=== PATIENT | male | born 1965 | race Caucasian/White ===

== ENCOUNTER 2022-10-02 10:35 | Emergency (ER) | payer MEDICARE, MEDICAID, SELFPAY ==
--- NOTE | ~2022-10-02 | XR_ITS ---
EXAMINATION: XR HAND, LEFT CLINICAL INFORMATION: Left second digit pain status post blunt trauma. COMPARISON: None available. TECHNIQUE: PA, lateral, and oblique views of the left hand. An indicator arrow points to the distal left second digit. FINDINGS: There is an acute, comminuted, mildly displaced fracture of the distal tip of the distal phalanx of the second digit with adjacent soft tissue swelling and distortion. No radiopaque foreign body. The remainder the digits are intact. XR/XR hand LT min 3V IMPRESSION: Acute, comminuted, mildly displaced fracture of the distal tip of the distal phalanx of the second digit.
[2022-10-02 11:05] VITALS: BP 149/86; PULSE 65; RESP 16; TEMP 36.9; O2SAT 100; BMI 27.4
--- NOTE | 2022-10-02 11:09 | ED.EXTPRO ---
HPI - Extremity Problem General Chief complaint: Extremity Injury, Upper Stated complaint: left index finger injury Time Seen by Provider: 10/02/22 11:23 Source: patient and RN notes reviewed Mode of arrival: ambulatory Limitations: no limitations History of Present Illness HPI Narrative: This is a 57-year-old male presenting to the emergency department for evaluation of left 2nd finger pain. He states that he was hammering a piece of wood at his house earlier today and accidentally hit his left 2nd finger with a hammer. Patient is unsure when his last tetanus was. Denies taking any medications at home treated current symptoms. No history of problems with his left finger in the past. No other complaints or concerns at this time. Related Data Previous Rx's Medication Instructions Recorded acetaminophen 325 mg tablet 650 mg PO Q6H PRN pain #30 tabs 10/02/22 (Tylenol) cephalexin 500 mg capsule 500 mg PO Q6H 7 days #28 caps 10/02/22 doxycycline hyclate 100 mg capsule 100 mg PO BID 7 days #14 caps 10/02/22 ibuprofen 600 mg tablet 600 mg PO Q6H PRN pain #30 tabs 10/02/22 oxycodone 5 mg capsule 5 mg PO Q6H PRN pain #7 caps 10/02/22 Allergies Allergy/AdvReac Type Severity Reaction Status Date / Time No Known Allergies Allergy Unverified 11/14/19 15:49 [No Known Allergies*] Review of Systems Review of Systems: Yes all other systems are reviewed and are negative PMFSH Past Medical History Attestation statement: The following information was validated with the patient. Physical Exam Vital Signs: Vital Signs: Last Vital Signs Temp 98.5 F 10/02/22 11:05 Pulse 60 10/02/22 12:36 Resp 18 10/02/22 12:36 BP 130/85 10/02/22 12:36 Pulse Ox 99 10/02/22 12:36 O2 Del Method Room Air 10/02/22 12:36 BMI result Body Mass Index 27.4 Const: Other: General: Awake, alert, and oriented X3. No acute distress. HEENT: Normal inspection CVS: Normal heart rate and rhythm. Pulses normal. Respiratory: No respiratory distress Skin: Warm, dry, no rashes noted to exposed skin. Normal skin color. Normal skin turgor. Extremities: Left second Distal phalanx with subungal hematoma noted, irregular 3mm laceration noted to the tip of the digit with active bleeding. Distal sensation intact. Able to flex and extend at the MCP, PIP and DIP without difficulty. Neuro: Oriented X 3. No motor deficit. No sensory deficit. Course Course Course Narrative: RME performed by Kemi Wells PA-C. Patient is a 57 year old assigned male at presenting to the emergency department with left index finger pain. Patient states that he hit it with a hammer and it is bleeding. Imaging ordered. Patient placed back in the waiting room pending room availability and results. Medications Administered Discontinued Medications Generic Name Dose Route Start Last Admin Trade Name Freq PRN Reason Stop Dose Admin Bacitracin 1 appl 10/02/22 15:12 10/02/22 15:31 Bacitracin Oint 0.9 Gm Packet TOPICAL 10/02/22 15:13 1 appl ONCE ONE Administration Protocol Diphtheria/Tetanus/Acell Pertussis 0.5 ml 10/02/22 11:10 10/02/22 11:29 Diphth,Pertus(Acell),Tet Adult 0.5 Ml Syringe IM 10/02/22 11:11 0.5 ml .ONCE ONE Administration Lidocaine HCl 5 ml 10/02/22 14:07 10/02/22 14:31 Lidocaine Hcl 1 % Mpf 5 Ml Vial INFILTRATI 10/02/22 14:08 5 ml ONCE ONE Administration Medical Decision Making Medical Decision Making MDM Narrative: 57 y/o M presenting to the Er with complaints of left second digit pain after striking it with a hammer. On arrival, mildly hypertensive at 149/86, likely due to pain. Xray was obtained revealing Acute, comminuted, mildly displaced fracture of the distal tip of the distal phalanx of the second digit. Case discussed with orthopedic PA, Afua Guzman, who recommends cleansing and closing wound and will f/u in office next. Laceration with suture repair preformed - see procedure note for further details. Pt tolerated procedure well without complications. Wound dressed with bacitracin. Finger placed in splint. Pt discharged on ABX, Ibuprofen/tylenol, and also givenn oxycodone for severe pain only. Advised that he should only take oxycodone for severe pain only and that this medication cannot be refilled from the ER. Pt understands and agrees with plan. Given wound care instructions. Given return pre-cautions. Pt stable for d/c. Differential Diagnosis Differential Diagnoses: The differential diagnosis associated with the presentation includes open fracture, laceration, dislocation Consult Healthcare Provider Management of the patient was discussed with: Marketing Support Coordinator Afua Guzman PA-C, orthopedics - see above Radiology Impression Discussion of test interpretation with radiology: I have reviewed the radiologist's reading. Radiologist Impression: EXAMINATION: XR HAND, LEFT CLINICAL INFORMATION: Left second digit pain status post blunt trauma.? COMPARISON: None available.? TECHNIQUE: PA, lateral, and oblique views of the left hand. An indicator arrow points to the distal left second digit. FINDINGS: There is an acute, comminuted, mildly displaced fracture of the distal tip of the distal phalanx of the second digit with adjacent soft tissue swelling and distortion. No radiopaque foreign body. The remainder the digits are intact.? XR/XR hand LT min 3V IMPRESSION: Acute, comminuted, mildly displaced fracture of the distal tip of the distal phalanx of the second digit. ? Dictated By: Andre Clay MD Signed By: <Electronically signed? Prescription Management I considered prescription management with: Pain Medication and Antibiotic Procedures Laceration Laceration 1: Site: upper extremity Side (If applicable): left Size (cm): 3 Description: irregular Depth: simple, single layer Local Anesthetic: lidocaine 1% Amount of anesthesia used (mL): 4 Pre-repair: wound explored, irrigated extensively and deep structures intact Skin layer closed with: nylon Size (cm): 5-0 Number of sutures: 7 Technique: simple, interrupted Discharge Plan Discharge Clinical Impression: Fracture of distal phalanx of left index finger, Open fracture Patient Disposition: Home, Self-Care Instructions: Finger Fracture (ED) Additional Instructions: Please keep wound clean and dry. Keep a close eye on your finger, watch for any signs of infection including but not limited to increased redness, swelling, drainage, fevers or chills. You fractured your finger. Please keep finger and splint until you are seen by Orthopedics. You may take this off today change out bandage. Please have sutures removed in 10-14 days. Please follow-up with orthopedics this week, call tomorrow to make an appointment. If any new or worsening symptoms occur please return for re-evaluation. Please take full course of antibiotics. Finish the entire course even if your feeling better. Please take Tylenol and ibuprofen as prescribed. I am also giving you a narcotic medication called oxycodone. Only take this for severe pain only. This will cause drowsiness, do not drink alcohol or drive while taking this medication. We cannot refill this medication from the emergency room therefore if you need medication refill you need to follow-up with her primary care physician regarding this. Prescriptions: New doxycycline hyclate 100 mg capsule 100 mg PO BID 7 Days Qty: 14 0RF cephalexin 500 mg capsule 500 mg PO Q6H 7 Days Qty: 28 0RF acetaminophen [Tylenol] 325 mg tablet 650 mg PO Q6H PRN (Reason: pain) Qty: 30 0RF ibuprofen 600 mg tablet 600 mg PO Q6H PRN (Reason: pain) Qty: 30 0RF oxycodone 5 mg capsule 5 mg PO Q6H PRN (Reason: pain) Qty: 7 0RF Rx Instructions: Partial Fill upon patient request. Referrals: [facility] [Provider Group] Interventions: ED Discharge Assessment Last Done: 10/02/22 15:35 Discharge Date/Time: 10/02/22 15:36
[2022-10-02] MEDS: Diphth,Pertus(ACell),Tet Adult 0.5 ML SYRINGE IM (11:29)
[2022-10-02 12:36] VITALS: BP 130/85; PULSE 60; RESP 18; O2SAT 99
[2022-10-02] MEDS: Lidocaine HCl 1 % MPF 5 ML VIAL INFILTRATI (14:31)
[2022-10-02] MEDS: Bacitracin Oint 0.9 GM PACKET 1 APPL TOPICAL (15:31)
--- NOTE | 2022-10-02 15:38 | PC.NURSE ---
VS: BP: 154/94 HR: 58 BPM RR- 16 rr 98% O2
== END 2022-10-02 15:36 | disposition home or self-care (01) ==
PROVIDERS: Emergency Provider Emergency Medicine; PCP Internal Medicine
DX: S62.631B Displaced fracture of distal phalanx of left index finger, initial encounter for open fracture (principal); S60.512A Abrasion of left hand, initial encounter; Y29.XXXA Contact with blunt object, undetermined intent, initial encounter; Y93.9 Activity, unspecified; Y92.009 Unspecified place in unspecified non-institutional (private) residence as the place of occurrence of the external cause; Y99.9 Unspecified external cause status; Z79.899 Other long term (current) drug therapy; Z23 Encounter for immunization
CPT/HCPCS: 12002; 73130; 90471; 90715; 99283

== ENCOUNTER 2022-10-04 10:01 | Outpatient (AMB) | payer MEDICARE, MEDICAID, SELFPAY ==
[2022-10-04 10:13] VITALS: BMI 27.4
--- NOTE | 2022-10-04 10:13 | A.OFFVIS_ITS ---
Intake Vital Signs 10/04/22 10:13 Height 5 ft 7 in Weight 175 lb BMI 27.4 Intake Visit Reasons: N/P Fx left index finger, DOI ? Intake Note: Lana 57 yr old male who is right hand dominant, presents today with his Neelam, for his an evaluation of his left 2nd finger pain. He states that on 10/02/22, he was hammering a piece of wood at his house and accidentally hit his left 2nd finger with a hammer. Seen in ED where he was sutures and splinted. Currently states he has little pain and soreness. Patient was Rx'd ABX. Allergies No Known Allergies [No Known Allergies*] Allergy (Unverified 10/04/22 10:17) HPI N/P Fx left index finger, DOI ? HPI Details Lance is a 57 year old right hand dominant man who presents for a left index finger injury. He says he struck the tip of his finger with a hammer on 10/02/22, was seen in the ED and referred here. While in the ED his finger was sutured, splinted, and he was given Abx & Oxycodone. He says he only has some mild pain today, with occasional throbbing pain. He says he has not been taking any of the provided Oxycodone as his pain is minimal. 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 Review of Systems Const All systems reviewed & are unremarkable except as noted in HPI and below Physical Exam Vital Signs: BMI result Body Mass Index 27.4 Const General: cooperative, healthy appearing and no acute distress Orientation/consciousness: patient oriented x3 HEENT Head: Yes normocephalic and Yes atraumatic Eyes EOM: EOMs intact bilaterally Resp Effort & Inspection: normal respiratory effort and able to speak in complete sentences Cardio Jugular venous distension: no JVD Skin General skin exam: turgor normal Rashes: no rashes Neuro General: patient oriented x3 Extrem Other: Evaluation of Left Upper Extremity: The patient is alert, oriented, and in no acute distress Neuro: Not checked today due to pain. Vascular: Cap refill brisk ROM: Good active motion at the MCP and PIP joints of the index finger Good ROM of the other digits Nail plate has a subungual hematoma and does not appear well attached to the underlying nailbed This is beneath the eponychial fold and is in satisfactory position There is an open wound at the tip of the finger at the distal edge of the nail that is about 1.5 cm in length. It is sutured closed, there is a small amount of serosanguineous drainage. Radiographs: 3 views of the left hand, with attention to the index finger, from 10/02/22 were reviewed by me today in clinic. They show a left index finger tuft fracture of the distal phalanx, comminuted Psych Appearance: grossly normal Affect: normal affect Attitude: cooperative Office Procedures Fracture Care Details: Distal phalanx fracture 38639 Fracture Billing Code: Fracture Billing Code Assessment & Plan Assessment & Plan (1) Open fracture of distal phalanx of left index finger: Code(s): S62.631B - Displaced fracture of distal phalanx of left index finger, initial encounter for open fracture (2) Injury of nail bed of finger of left hand: Code(s): S69.92XA - Unspecified injury of left wrist, hand and finger(s), initial encounter Plan Assessment & Plan: 1. Left index finger distal phalanx fracture, comminuted & open 2. Left index finger nailbed injury From a hammer strike, DOI: 10/02/22 I&D & sutured in the ED on 10/02/22 I educated him about this condition I discussed operative and non-operative treatment options I recommend this continue to be managed non-operatively, and he is in agreement I educated him on proper wound care and the signs of infection. If he develops any increased pain, erythema, drainage, or swelling he is to contact the clinic or attend the ED He can use 1/2 strength peroxide, cut with water, to clean his wound daily. He can start washing with soap and water in the shower in 5 days. He will avoid any underwater activities at this time. He will have his hand covered while in the shower for at least the next 5 days He will finish all his PO Abx as instructed He will work on gentle finger ROM exercises at home He will follow up next week for a wound check with a PA. I anticipate suture removal in ~2-3 weeks, depending on healing Scribed for Donna Summers MD by Marc Rodriguez, medical office technician, on 10/04/22 at 10:55 AM, EST. Coding Level of Care Code New Pt Level 3 (85296) Diagnoses Open fracture of distal phalanx of left index finger S62.631B Injury of nail bed of finger of left hand S69.92XA CPT Codes Fracture Care - Fracture Billing Code: Fracture Billing Code ([id number])
== END 2022-10-04 11:23 | disposition home or self-care (01) ==
PROVIDERS: PCP Internal Medicine; Visit Provider Orthopaedic Surgery
DX: S62.631B Displaced fracture of distal phalanx of left index finger, initial encounter for open fracture (principal); S69.92XA Unspecified injury of left wrist, hand and finger(s), initial encounter
CPT/HCPCS: 99203

== ENCOUNTER → 2022-10-04 10:01 | Outpatient (BNVA) | payer MEDICARE, MEDICAID, SELFPAY | PROVIDERS: PCP Internal Medicine; Visit Provider Orthopaedic Surgery | DX: S62.631B Displaced fracture of distal phalanx of left index finger, initial encounter for open fracture (principal); S69.92XA Unspecified injury of left wrist, hand and finger(s), initial encounter | CPT/HCPCS: 99202 ==

== ENCOUNTER 2022-10-10 13:53 | Outpatient (AMB) | payer MEDICARE, MEDICAID, SELFPAY ==
--- NOTE | 2022-10-10 13:56 | A.OFFVIS_ITS ---
Intake Intake Visit Reasons: ov-LT IF inj wound check, DOI 09/27/22 Intake Note: Lance a 57 year old right hand dominant male who presents today for a follow up visit of left index finger, DOI 09/27/22. Patient reports having soreness in IF, stating pulsing pain at times. He continues to do daily dressing changes and has completed antibiotics. Allergies No Known Allergies [No Known Allergies*] Allergy (Unverified 10/10/22 14:03) HPI ov-LT IF inj wound check, DOI 09/27/22 HPI Details 57-year-old right hand dominant male who presents in the office today for a wound check of his 2nd digit on the left hand. The incident occurred on 10/02/2022 when he hit his hand with a hammer while hammering wood. The patient reports soreness in the index finger with a pulsing pain. He confirms performing daily dressing changes. He confirms taking the last dose of his antibiotics this morning, 10/10/2022. 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 Review of Systems Const All systems reviewed & are unremarkable except as noted in HPI and below Physical Exam Const General: cooperative, healthy appearing and no acute distress Orientation/consciousness: patient oriented x3 HEENT Head: Yes normocephalic and Yes atraumatic Eyes EOM: EOMs intact bilaterally Resp Effort & Inspection: normal respiratory effort and able to speak in complete sentences Cardio Jugular venous distension: no JVD Rate: regular rate Peripheral pulses: Peripheral pulses 2+ throughout GI Palpation (GI): Soft to palpation Skin General skin exam: turgor normal Lesions: no lesions Rashes: no rashes Neuro General: patient oriented x3 Extrem Other: Good active motion at the MCP and PIP joints of the index finger. Good ROM of the other digits. Nail plate has a subungual hematoma and does not appear well attached to the underlying nailbed. This is beneath the eponychial fold and is in satisfactory position. There is an open wound at the tip of the finger at the distal edge of the nail that is about 1.5 cm in length. It is sutured closed, th ere is a small amount of serosanguineous drainage. Sensation intact. Psych Appearance: grossly normal Affect: normal affect Attitude: cooperative Assessment & Plan Assessment & Plan (1) Open fracture of distal phalanx of left index finger: Code(s): S62.631B - Displaced fracture of distal phalanx of left index finger, initial encounter for open fracture (2) Injury of nail bed of finger of left hand: Code(s): S69.92XA - Unspecified injury of left wrist, hand and finger(s), initial encounter Plan Mr. Johnston is a 57-year-old right hand dominant male who presents in the office today for a wound check of his 2nd digit on the left hand. The incident occurred on 10/02/2022 when he hit his hand with a hammer while hammering wood. The patient reports soreness in the index finger with a pulsing pain. He confirms performing daily dressing changes. He confirms taking the last dose of his antibiotics this morning, 10/10/2022. The sutures will remain in place for an additional week. He was educated on signs of infection, which are as follows but not limited to erythema, edema, drainage, or warmth. If he is to experience any of these symptoms he is to contact the office immediately or present to the ED. The wound was cleaned and a new dressing was applied. He will continue to perform daily dressing changes. Follow up will be in 1 week for a wound check and anticipation of suture removal, or sooner if needed. Patient Instructions: Scribed for Afua Guzman PA-C by Camelia Rodriguez medical assistant, on 10/10/2022 at 1:56 pm, EST. Coding Level of Care Code Est Pt Level 3 (80199) Diagnoses Open fracture of distal phalanx of left index finger S62.631B Injury of nail bed of finger of left hand S69.92XA
== END 2022-10-10 14:26 | disposition home or self-care (01) ==
PROVIDERS: PCP Internal Medicine; Visit Provider Physician Assistant
DX: S62.631B Displaced fracture of distal phalanx of left index finger, initial encounter for open fracture (principal); S69.92XA Unspecified injury of left wrist, hand and finger(s), initial encounter
CPT/HCPCS: 99213

== ENCOUNTER → 2022-10-10 13:53 | Outpatient (BNVA) | payer MEDICARE, MEDICAID, SELFPAY | PROVIDERS: PCP Internal Medicine; Visit Provider Physician Assistant | DX: S67.191A Crushing injury of left index finger, initial encounter (principal); S62.631B Displaced fracture of distal phalanx of left index finger, initial encounter for open fracture; W22.8XXA Striking against or struck by other objects, initial encounter; Y93.H3 Activity, building and construction; Y92.89 Other specified places as the place of occurrence of the external cause; Y99.8 Other external cause status | CPT/HCPCS: 99212 ==

== ENCOUNTER 2022-10-17 04:51 | Outpatient (REF) | payer MEDICARE, MEDICAID, SELFPAY ==
--- NOTE | ~2022-10-17 | XR_ITS ---
EXAMINATION: XR HAND, LEFT CLINICAL INFORMATION: Pain in second finger on the left COMPARISON: 10/02/2022 TECHNIQUE: PA, lateral, and oblique views of the left hand. FINDINGS: There is no interval change in appearance of mildly displaced fracture of the tuft of the distal phalanx of second finger on the left. There is distal fingers unremarkable. XR/XR hand LT min 3V IMPRESSION: No interval change in appearance of mildly displaced fracture of the tuft of the distal phalanx second finger.
== END 2022-10-17 04:52 | disposition home or self-care (01) ==
LOC: HO.HOSX 04:51
PROVIDERS: Visit Provider Orthopaedic Surgery
DX: S62.631B Displaced fracture of distal phalanx of left index finger, initial encounter for open fracture (principal); S69.92XD Unspecified injury of left wrist, hand and finger(s), subsequent encounter
CPT/HCPCS: 73130

== ENCOUNTER 2022-10-18 09:10 | Outpatient (AMB) | payer MEDICARE, MEDICAID, SELFPAY ==
--- NOTE | 2022-10-18 09:27 | MHC.OFFVIS ---
Intake Vital Signs 10/18/22 09:28 Height 5 ft 7 in Weight 175 lb BMI 27.4 Intake Visit Reasons: ov-LT IF inj wound check, DOI 09/27/22 Intake Note: Lance, 57-year-old right hand dominant male, presents in the office today for a wound check of his 2nd digit on the left hand. The incident occurred on 10/02/2022 when he hit his hand with a hammer while hammering wood. Seen with Wiilan Guzman on 10/10/22 who wants patient to be seen with Dr. Summers for a wound check and suture removal. Allergies No Known Allergies [No Known Allergies*] Allergy (Unverified 10/18/22 09:28) HPI ov-LT IF inj wound check, DOI 09/27/22 HPI Details Lance is a 57 year old right hand dominant man who presents for a wound check of his left index finger distal phalanx fracture, comminuted & open, & nailbed injury. This was from a hammer strike, DOI: 10/02/22. I&D & sutured in the ED on 10/02/22. He says he is doing okay, and his pain has improved somewhat. He has finished his oral Abx and denies any symptoms of infection He has been working on gentle ROM exercises at home. He does say this continues to bleed occasionally still, and he has been performing wound care at home. He has not been washing this in the shower. He has finished his course of Ibuprofen and wants to know if he should continue to take some. 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 Review of Systems Const All systems reviewed & are unremarkable except as noted in HPI and below Physical Exam Vital Signs: BMI result Body Mass Index 27.4 Const General: cooperative, healthy appearing and no acute distress Orientation/consciousness: patient oriented x3 HEENT Head: Yes normocephalic and Yes atraumatic Eyes EOM: EOMs intact bilaterally Resp Effort & Inspection: normal respiratory effort and able to speak in complete sentences Cardio Jugular venous distension: no JVD Skin General skin exam: turgor normal Rashes: no rashes Neuro General: patient oriented x3 Extrem Other: The patient was alert oriented and in no acute distress The incision is healing well with no erythema drainage or evidence of infection. Vascular: Cap refill brisk ROM: Good active motion at the MCP and PIP joints of the index finger Good ROM of the other digits Nail plate has a subungual hematoma that involves 100% of the nailbed This is beneath the eponychial fold and is in satisfactory position Small amount of dried blood on the ulnar aspect of the edge of the nail There is an open wound at the tip of the finger at the distal edge of the nail that is about 1.5 cm in length. It is sutured closed, there is a small amount of serosanguineous drainage. Radiographs: 3 views of the left hand, with attention to the index finger, were taken and viewed by me today in clinic. They show a left index finger tuft fracture of the distal phalanx, comminuted Psych Appearance: grossly normal Affect: normal affect Attitude: cooperative Assessment & Plan Assessment & Plan (1) Open fracture of distal phalanx of left index finger: Code(s): S62.631B - Displaced fracture of distal phalanx of left index finger, initial encounter for open fracture (2) Injury of nail bed of finger of left hand: Code(s): S69.92XA - Unspecified injury of left wrist, hand and finger(s), initial encounter Plan Assessment & Plan: 1. Left index finger distal phalanx fracture, comminuted & open 2. Left index finger nailbed injury From a hammer strike, DOI: 10/02/22 I&D & sutured in the ED on 10/02/22 I recommend this continue to be managed non-operatively, and he is in agreement No sutures removed today in clinic I educated him on proper wound care, and the signs of infection. If he develops any increased pain, erythema, drainage, or swelling he is to contact the clinic or attend the ED He has finished all his PO Abx as instructed I discussed activity modifications, he is to lift nothing heavier than a cellphone for the next two weeks He will perform gentle ROM exercises at home He should avoid any underwater activities at this time He is able to wash this with soap and water in the sink or shower He will apply diluted hydrogen peroxide and topical Abx ointment daily. He will follow up next week for a wound check & suture removal. This can be done with a PA Scribed for Donna Summers MD by Marc Rodriguez, medical logistics specialist, on 10/18/22 at 10:15 AM, EST. Orders: Orders XR hand LT min 3V Today M79.642 - Pain in left hand Coding Level of Care Code Global (25893) Diagnoses Open fracture of distal phalanx of left index finger S62.631B Injury of nail bed of finger of left hand S69.92XA
[2022-10-18 09:28] VITALS: BMI 27.4
== END 2022-10-18 10:28 | disposition home or self-care (01) ==
PROVIDERS: PCP Internal Medicine; Visit Provider Orthopaedic Surgery
DX: S62.631B Displaced fracture of distal phalanx of left index finger, initial encounter for open fracture (principal); S69.92XA Unspecified injury of left wrist, hand and finger(s), initial encounter
CPT/HCPCS: 99213

== ENCOUNTER 2022-10-25 09:27 | Outpatient (AMB) | payer MEDICARE, MEDICAID, SELFPAY ==
[2022-10-25 09:36] VITALS: BMI 27.4
--- NOTE | 2022-10-25 09:36 | A.OFFVIS_ITS ---
Intake Vital Signs 10/25/22 09:36 Height 5 ft 7 in Weight 175 lb BMI 27.4 Intake Visit Reasons: ov-LT IF inj wound check, DOI 09/27/22 Intake Note: Lance, 57-year-old right hand dominant male, presents in the office today for a wound check and suture removal of his 2nd digit on the left hand. The incident occurred on 10/02/2022 when he hit his hand with a hammer while hammering wood. Allergies No Known Allergies [No Known Allergies*] Allergy (Unverified 10/25/22 09:38) HPI ov-LT IF inj wound check, DOI 09/27/22 HPI Details Lance is a 57 year old right hand dominant man who presents for a wound check of his left index finger distal phalanx fracture, comminuted & open, & nailbed injury. This was from a hammer strike, DOI: 10/02/22. I&D & sutured in the ED on 10/02/22. He says he is doing okay, and his pain has improved, though he does have some pain if he touches about his injury. He denies any symptoms of infection He has been working on gentle ROM exercises at home. He says he continues to get a little bit of drainage but denies any bleeding. He has been washing this in the shower & sink. 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 Physical Exam Vital Signs: BMI result Body Mass Index 27.4 Const General: cooperative, healthy appearing and no acute distress Orientation/consciousness: patient oriented x3 HEENT Head: Yes normocephalic and Yes atraumatic Eyes EOM: EOMs intact bilaterally Resp Effort & Inspection: normal respiratory effort and able to speak in complete sentences Cardio Jugular venous distension: no JVD Skin General skin exam: turgor normal Rashes: no rashes Neuro General: patient oriented x3 Extrem Other: The patient was alert oriented and in no acute distress The incision is healing well with no erythema drainage or evidence of infection. Sutures removed and steri-strips applied Vascular: Cap refill brisk ROM: He can make a fist and extend all his digits Good active motion at the MCP and PIP joints of the index finger Nail plate has a subungual hematoma that involves 100% of the nailbed. This is beneath the eponychial fold and is in satisfactory position The new nail looks like it is starting to push the old nail from beneath the eponychial fold The wound appears to be healing well and with no drainage. Psych Appearance: grossly normal Affect: normal affect Attitude: cooperative Assessment & Plan Assessment & Plan (1) Open fracture of distal phalanx of left index finger: Code(s): S62.631B - Displaced fracture of distal phalanx of left index finger, initial encounter for open fracture (2) Injury of nail bed of finger of left hand: Code(s): S69.92XA - Unspecified injury of left wrist, hand and finger(s), initial encounter Plan Assessment & Plan: 1. Left index finger distal phalanx fracture, comminuted & open 2. Left index finger nailbed injury From a hammer strike, DOI: 10/02/22 I&D & sutured in the ED on 10/02/22 The patient appears to be doing well Sutures removed today in clinic I educated him on proper wound care, and the signs of infection. If he develops any increased pain, erythema, drainage, or swelling he is to contact the clinic or attend the ED He has finished all his PO Abx as instructed I discussed activity modifications, he is to lift nothing heavier than a cellphone for the next two weeks He will perform gentle ROM exercises at home He should avoid any underwater activities for at least the next 5 days He will continue to wash this with soap and water in the sink or shower He can follow up in 4-6 weeks, he may cancel this appointment. Scribed for Donna Summers MD by Marc Rodriguez biomedical photographer, on 10/25/22 at 9:50 AM, EST. Coding Level of Care Code Global (10350) Diagnoses Open fracture of distal phalanx of left index finger S62.631B Injury of nail bed of finger of left hand S69.92XA
== END 2022-10-25 10:13 | disposition home or self-care (01) ==
PROVIDERS: PCP Internal Medicine; Visit Provider Orthopaedic Surgery
DX: S62.631B Displaced fracture of distal phalanx of left index finger, initial encounter for open fracture (principal); S69.92XA Unspecified injury of left wrist, hand and finger(s), initial encounter
CPT/HCPCS: 99213

== ENCOUNTER → 2022-10-25 09:27 | Outpatient (BNVA) | payer MEDICARE, MEDICAID, SELFPAY | PROVIDERS: PCP Internal Medicine; Visit Provider Orthopaedic Surgery | DX: S62.631D Displaced fracture of distal phalanx of left index finger, subsequent encounter for fracture with routine healing (principal) | CPT/HCPCS: 99212 ==

== ENCOUNTER 2022-11-25 10:26 | Outpatient (AMB) | payer MEDICARE, MEDICAID, SELFPAY ==
--- NOTE | 2022-11-25 10:48 | A.OFFVIS_ITS ---
Intake Intake Visit Reasons: OV-LT IF ROM CHECK , DOI 09/27/22 Intake Note: This is a 57 year old male who presents for a left IF ROM check, his date of injury is 09/27/22. He reports some sensitivity and better range of motion. Allergies No Known Allergies [No Known Allergies*] Allergy (Unverified 11/25/22 10:52) Medication List - Last Reconciled 11/25/22 by Kimmie Mcbride RN acetaminophen (Tylenol) 650 mg (2 x 325 mg) PO Q6H PRN fluoxetine 40 mg PO DAILY hydroxyzine pamoate 50 mg PO BID PRN ibuprofen 600 mg PO Q6H PRN HPI OV-LT IF ROM CHECK , DOI 09/27/22 HPI Details Lance is a 57-year-old [id number] man who presents today for follow-up of a crush injury to the tip of his left index finger. He says he is doing well and his range of motion is better. He is a little concerned because there is bump on the tip of his finger that is still little sensitive. His is concerned about possibly being an infection, but notes that this has been going on for quite some time and is not new or worsening. He sustained an open comminuted distal phalanx fracture and nail bed injury. His finger was crushed with a hammer. Date of injury was 10/02/2022. I&D and sutured in the ED on 10/02/2022. 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 The wound on the tip of the index finger is now well healed with no erythema or drainage. He does have a focal bump on the very tip of the index finger. Not sure if this could perhaps be a small piece of bone that is working its way distally. The new nail is growing in and is now about 30% over the nail bed. It is pushing the old nail distally. He can make a fist and extend all of his digits without pain. I am ordering some new radiographs today to look at the tip of the finger. Radiographs three views of the left hand with attention to the index finger were taken today and reviewed by me in clinic: It shows that he had a comminuted tuft fracture of the distal phalanx of the left index finger. There is 1 small piece of bone which is near the tip of the finger, but does not appear to be centered within this slightly raised area. He appears t0 have good soft tissue coverage. Assessment & Plan Assessment & Plan (1) Injury of nail bed of finger of left hand: Code(s): S69.92XA - Unspecified injury of left wrist, hand and finger(s), initial encounter (2) Open fracture of distal phalanx of left index finger: Code(s): S62.631B - Displaced fracture of distal phalanx of left index finger, initial encounter for open fracture Plan Assessment & Plan: 1. Left index finger distal phalanx fracture, comminuted & open 2. Left index finger nailbed injury From a hammer strike, DOI: 10/02/22 I&D & sutured in the ED on 10/02/22 The patient appears to be doing well He can now make a fist and extend all his digits. The new nail appears to be growing in well and pushing the injured nail plate distally. He does have a focal 4 mm bump on the tip of the index finger. Radiographs do not appear to show up piece of bone centered in the area. It is minimally tender. This is not something new or getting worse. His was concerned about possible infection, but again this has not changed or gotten worse over the last few weeks. Review treat this conservatively for now. Certainly the piece of bone seems to be pushing its way out we can assist with the small incision and remove that at a later date. He does have some generalized sensitivity to the tip of the finger. For that reason I am referring him to OT hand therapy to work on desensitization and normalizing function. If all is going well he will follow-up with me in January to see how he is doing. They know that if something changes that is worrisome they can contact our clinic to be seen. Orders: Orders XR hand LT min 3V Today M79.642 - Pain in left hand OT Evaluation and Treatment Today S62.631B - Displaced fracture of distal phalanx of left index finger, initial encounter for open fracture, S69.92XA - Unspecified injury of left wrist, hand and finger(s), initial encounter Coding Level of Care Code Global (14281) Diagnoses Injury of nail bed of finger of left hand S69.92XA Open fracture of distal phalanx of left index finger S62.635D
== END 2022-11-25 12:04 | disposition home or self-care (01) ==
PROVIDERS: PCP Internal Medicine; Visit Provider Orthopaedic Surgery
DX: S69.92XA Unspecified injury of left wrist, hand and finger(s), initial encounter (principal); S62.631B Displaced fracture of distal phalanx of left index finger, initial encounter for open fracture
CPT/HCPCS: 99213

== ENCOUNTER 2022-11-25 10:26 | Outpatient (REF) | payer MEDICARE, MEDICAID, SELFPAY ==
--- NOTE | ~2022-11-25 | XR_ITS ---
EXAMINATION: XR HAND, LEFT CLINICAL INFORMATION: Left hand pain COMPARISON: 10/18/2022 x-ray TECHNIQUE: PA, lateral, and oblique views of the left hand. FINDINGS: Redemonstrated is a comminuted, mildly displaced fracture of the tuft of the distal phalanx of the second digit. This overall appears similar as compared to the prior x-ray 10/18/2022. There is soft tissue swelling present. No radiopaque foreign body is identified. No acute fractures otherwise identified. XR/XR hand LT min 3V IMPRESSION: Similar appearance of a comminuted, mildly displaced fracture of the tuft of the distal phalanx of the second digit. Soft tissue swelling.
== END 2022-11-25 10:27 | disposition home or self-care (01) ==
LOC: HO.HOSX 10:26
PROVIDERS: PCP Internal Medicine; Visit Provider Orthopaedic Surgery
DX: S69.92XD Unspecified injury of left wrist, hand and finger(s), subsequent encounter (principal); S62.631D Displaced fracture of distal phalanx of left index finger, subsequent encounter for fracture with routine healing
CPT/HCPCS: 73130; 99212

== ENCOUNTER 2022-12-19 12:29 | Emergency (ER) | payer MEDICARE, MEDICAID, SELFPAY ==
--- NOTE | ~2022-12-19 | XR_ITS ---
EXAMINATION: XR CHEST CLINICAL INFORMATION: Chest pain. COMPARISON: December 30, 2015. TECHNIQUE: 2 views of the chest were obtained. FINDINGS: No significant abnormality is noted involving the heart, lungs, mediastinum, bony thorax or soft tissues. XR/XR chest 2V IMPRESSION: Normal chest PA and lateral.
--- NOTE | 2022-12-19 12:36 | ECG_ITS ---
Test Reason : cp Blood Pressure : / mmHG Vent. Rate : 072 BPM Atrial Rate : 072 BPM P-R Int : 160 ms QRS Dur : 080 ms QT Int : 360 ms P-R-T Axes : 020 000 004 degrees QTc Int : 394 ms Normal sinus rhythm Normal ECG Heart rate has decreased Referred By: Kemi Wells Electronically Signed By:SANTOS SOW MD
--- NOTE | 2022-12-19 13:08 | ED_ITS ---
HPI - General Adult General Chief complaint: Chest Pain Stated complaint: chest pain Time Seen by Provider: 12/19/22 18:33 Source: patient Mode of arrival: ambulatory Limitations: no limitations History of Present Illness HPI narrative: Patient is a 57 year old assigned male at with no reported medical history presenting to the emergency department today with epigastric pain. Patient states that over the last 3 days he has had epigastric type pain. Patient denies any dizziness, lightheadedness, nausea, vomiting, fever, chills, blurry vision, double vision, loss of vision, difficulty breathing, shortness of breath, back pain, night sweats, pain with urination, increased urinary frequency, increased urinary urgency, blood in his urine or stool, syncope or a near syncopal episode, recent trauma or falls, bowel incontinence, bladder incontinence, bowel retention, bladder retention, or any other complaints at this time. Onset (ago): day(s) (2) Location: chest and abdomen Severity: mild Severity scale (1-10): 3 Relieving factors: none Exacerbating factors: none Treatments prior to arrival: none Related Data Home Medications Medication Instructions Recorded Confirmed fluoxetine 40 mg capsule 40 mg PO DAILY 10/04/22 hydroxyzine pamoate 50 mg capsule 50 mg PO BID PRN 10/04/22 Previous Rx's Medication Instructions Recorded acetaminophen 325 mg tablet 650 mg (2 x 325 mg) PO Q6H PRN 10/02/22 (Tylenol) pain #30 tabs ibuprofen 600 mg tablet 600 mg PO Q6H PRN pain #30 tabs 10/02/22 Allergies Allergy/AdvReac Type Severity Reaction Status Date / Time No Known Allergies Allergy Unverified 11/25/22 10:52 [No Known Allergies*] Review of Systems 2 Constitutional: Constitutional: Reports no additional constitutional complaints, Denies chills, Denies fever(s) and Denies night sweats Eyes: Eyes: Reports no additional eye complaints, Denies blurry vision, Denies change in vision, Denies diplopia, Denies eye discharge, Denies loss of vision and Denies eye pain ENT: Denies dizziness Cardiovascular: Cardiovascular: Reports no additional cardiovascular complaints, Reports chest pain, Denies lightheadedness, Denies Loss of Consciousness and Denies dyspnea Respiratory: Respiratory: Reports no additional respiratory complaints and Denies dyspnea Gastrointestinal: Gastrointestinal: Reports no additional gastrointestinal complaints, Reports abdominal pain (epigastric pain), Denies melena, Denies hematochezia, Denies change in bowel habits and Denies change in stool character Genitourinary: Genitourinary: Reports no additional male genitourinary complaints, Denies hematuria, Denies oliguria, Denies difficulty urinating, Denies dysuria, Denies urinary frequency, Denies urinary hesitancy, Denies urinary incontinence and Denies urinary urgency Musculoskeletal: Musculoskeletal: Reports no additional musculoskeletal complaints, Denies numbness and Denies tingling Neurologic: Denies dizziness, Denies loss of vision, Denies numbness and Denies tingling Psychiatric: Psychiatric: Reports no additional psychiatric complaints Endocrine: Endocrine: Reports no additional endocrine complaints Hematologic/Lymphatic: Hematologic/Lymphatic: Reports no additional hematologic/lymphatic complaints Allergic/Immunologic: Allergic/Immunologic: Reports no additional allergic/immunologic complaints PMFSH Past Medical History Attestation statement: The following information was validated with the patient. 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 Physical Exam ED Vital Signs: Vital Signs - 24 hr 12/19/22 13:09 Temperature 97.8 F Pulse Rate 68 Respiratory Rate 16 Blood Pressure 136/86 Pulse Oximetry 98 Oxygen Delivery Method Room Air BMI result Body Mass Index 27.4 Const General: cooperative, no acute distress, alert and awake Nutritional Appearance: well nourished Orientation/consciousness: patient oriented x3 Limitations: no limitations [facility] Head: Yes normal to inspection and Yes atraumatic Ears: hearing grossly normal bilaterally and external ears normal General nose exam: Normal external nose present, no nasal discharge noted and no epistaxis Face and sinus: Yes normal facial exam, No abrasion and No laceration Mouth: Normal oral and palatal mucosa present, no drooling and no muffled voice Eyes General: appearance normal, both eyes and all related structures Periorbital: periorbital findings normal Eyelids: Yes eyelids normal Conjunctivae: conjunctivae normal Pupils: Equal, round and reactive pupils present EOM: EOMs intact bilaterally Neck Neck: Yes normal visual inspection, Yes full ROM and Yes no lymphadenopathy Chest Chest palpation & inspection: normal inspection of the chest Resp Effort & Inspection: normal respiratory effort and able to speak in complete sentences Auscultation: clear to auscultation bilaterally Cardio Rate: regular rate Rhythm: regular rhythm GI Inspection: Yes normal to inspection Neuro General: patient oriented x3 and moves all extremities Cranial nerves: Yes Equal, round and reactive pupils present Cognition (Neuro): normal cognition Motor exam (neuro): 5/5 motor strength present throughout Sensory Exam: Normal double simultaneous stimulation for sensation Coordination: [id number] test normal Extrem General: Yes normal to inspection, Yes full ROM and Yes capillary refill normal Psych Appearance: grossly normal Mental Status: mental status grossly normal Affect: normal affect Attitude: cooperative Thought process: Normal thought process present Thought content: Normal thought content present Insight: Good insight present (Psych) Course Course Course Narrative: RME performed by Kemi Wells PA-C. Patient is a 57 year old assigned male at presenting to the emergency department with chest pressure. Labs, imaging, and swab ordered. Patient placed back in the waiting room pending room availability and results. Medical Decision Making Medical Decision Making [facility] Narrative: Patient is a 57 year old assigned male at with no reported medical history presenting to the emergency department today with chest pain / epigastric pain. Patient's physical exam was unremarkable. Patient's blood work was unremarkable. Patient's EKG was unremarkable. Patient's chest x-ray showed no acute process. I explained my physical exam findings as well as all test results to the patient. I answered all questions asked by the patient. I stressed the importance of the patient taking his medication as prescribed. I stressed the importance of the patient following up with his primary care provider. I stressed the importance of the patient returning to the emergency department immediately if his symptoms were to worsen or if he were to develop any dizziness, shortness of breath, difficulty breathing, chest pain, blurry vision, loss of vision, nausea, vomiting, abdominal pain, fever, chills, back pain, or any other complaints. Patient verbalized agreement and understanding with this treatment plan and discharge. Differential Diagnosis Differential Diagnoses: The differential diagnosis associated with the presentation includes Chest pain Epigastric pain NSTEMI STEMI GERD Admission/Observation Consideration of admission/observation: Escalation of care including admission/observation considered Patient would have been admitted to the hospital had his work up had any findings where hospital admission was appropriate and his clinical presentation warranted hospital admission. Lab Data [facility] Lab Attestation statement: I reviewed the patient's lab results. My interpretation of these studies and their corresponding values is that they are grossly normal. 12/19/22 15:46 12/19/22 15:46 Labs: Lab Results 12/19/22 Range/Units 15:46 WBC 6.1 (4.8-10.8) X10*3/uL RBC 5.94 H (4.60-5.80) X10*6/uL Hgb 17.2 (14.0-18.0) g/dl Hct 51.1 (42.0-52.0) % MCV 86.0 (80.0-98.0) fL MCH 29.0 (27.0-33.0) pg MCHC 33.7 (31.0-36.0) g/dl RDW 12.6 (11.0-16.0) % Plt Count 196 (160-400) X10*3/uL MPV 10.9 (9.4-12.4) fL Immature Gran % (Auto) 0.3 (0.0-0.4) % Neut % (Auto) 59.0 (45-73) % Lymph % (Auto) 28.9 (20-40) % Mobile % (Auto) 9.8 (2-11) % Eos % (Auto) 1.3 (0-4) % Baso % (Auto) 0.7 (0-2) % Lymph # (Auto) 1.8 (1.2-4.9) X10*3/uL Mobile # (Auto) 0.6 (0.1-1.2) X10*3/uL Eos # (Auto) 0.1 (0.0-0.4) X10*3/uL Baso # (Auto) 0.0 (0.0-0.2) X10*3/uL Abs Immat Gran (auto) 0.02 (0.00-0.03) X10*3/uL Absolute Neuts (auto) 3.6 (2.0-8.3) x10*3/uL Absolute Nucleated RBC 0.000 (0.0-0.012) X10*3/uL Nucleated RBC % (auto) 0.0 (0.0-0.2) /100WBC PT 12.1 (11.1-13.3) SEC INR 1.0 (0.9-1.1) APTT 31.8 (26.0-36.4) SEC Sodium 140 (135-145) mmol/L Potassium 4.6 (3.3-5.1) mmol/L Chloride 102 (96-108) mmol/L Carbon Dioxide 28 (22-29) mmol/L Anion Gap 15 (12-20) BUN 13 (9-16) mg/dL Creatinine 1.06 (0.5-1.4) mg/dL Estim Creat Clear Calc 73.4 Estimated GFR > 60 Random Glucose 93 (60-115) mg/dL Calcium 10.1 (8.4-10.2) mg/dL Magnesium 2.3 (1.6-2.6) mg/dL Total Bilirubin 0.5 (0.0-1.0) mg/dL AST 30 (5-37) U/L ALT 29 (0-40) U/L Alkaline Phosphatase 77 (39-117) U/L Troponin I High Sens 4.3 (<3.5-35.0) ng/L B-Natriuretic Peptide < 10 (<100) pg/mL Total Protein 8.7 H (6.5-8.0) g/dL Albumin 4.6 (3.5-5.0) g/dL Influenza Type A (PCR) NEGATIVE (Negative) Influenza Type B (PCR) NEGATIVE (Negative) RSV RNA Qual (PCR) NEGATIVE (Negative) SARS-CoV-2 RNA (RT-PCR) NEGATIVE (Negative) Independent Interpretation I performed an independent interpretation of an: EKG and Plain X-Ray Interpretation: My interpretation is in agreement with the radiologist's impression of this imaging study. - EXAMINATION: XR CHEST CLINICAL INFORMATION: Chest pain. COMPARISON: December 30, 2015. TECHNIQUE: 2 views of the chest were obtained. FINDINGS: No significant abnormality is noted involving the heart, lungs, mediastinum, bony thorax or soft tissues. XR/XR chest 2V IMPRESSION: Normal chest PA and lateral. Dictated By: Win Sanford Signed By: Electronically signed by Win Sanford 12/19/22 1454 - Vent. Rate: 072 BPM Atrial Rate: 072 BPM P-R Int: 160 ms QRS Dur: 080 ms QT Int: 360 ms P-R-T Axes: 020 000 004 degrees QTc Int: 394 ms Normal sinus rhythm Normal ECG Heart rate has decreased Electronically Signed By:SANTOS SOW MD Dictated By: Dion Sow MD Signed By: Electronically signed by Dion Sow MD 12/19/22 1316 Radiology Impression Discussion of test interpretation with radiology: I have reviewed the radiologist's reading. Scores Heart Score History: -0- slightly suspicious ECG: -0- normal Age: -1- >45 - <65 Risk factory: -0- no risk factors known Troponin: -0- < or = normal limit Score: 1 Risk: 1.7% Discharge Plan Discharge Clinical Impression: Chest pain Patient Disposition: Home, Self-Care Instructions: Chest Pain (DC) Additional Instructions: Follow up with your primary care provider. Return to the emergency department immediately if your symptoms worsen or if you develop any dizziness, shortness of breath, difficulty breathing, chest pain, blurry vision, loss of vision, nausea, vomiting, abdominal pain, fever, chills, back pain, or any other complaints. Prescriptions: No Action acetaminophen [Tylenol] 325 mg tablet 650 mg PO Q6H PRN (Reason: pain) Qty: 30 0RF ibuprofen 600 mg tablet 600 mg PO Q6H PRN (Reason: pain) Qty: 30 0RF hydroxyzine pamoate 50 mg capsule 50 mg PO BID PRN fluoxetine 40 mg capsule 40 mg PO DAILY Referrals: Darrius Rangel III, MD [Primary Care Provider] - Interventions: ED Discharge Assessment Last Done: 12/19/22 18:37 Discharge Date/Time: 12/19/22 18:39 Print Language: Yi
[2022-12-19 13:09] VITALS: BP 136/86; PULSE 68; RESP 16; TEMP 36.6; O2SAT 98; BMI 27.4
[2022-12-19 15:50] LABS: MANUAL DIFF FLAG NO
[2022-12-19 15:55] LABS: Basophils Percent Auto 0.7 % (0-2); Eosinophils Absolute Auto 0.1 X10*3/uL (0.0-0.4); Eosinophils Percent Auto 1.3 % (0-4); Hematocrit 51.1 % (42.0-52.0); Hemoglobin 17.2 g/dl (14.0-18.0); Imm Gran Abs Auto 0.02 X10*3/uL (0.00-0.03); Imm Gran Pct Auto 0.3 % (0.0-0.4); Lymphocytes Absolute Auto 1.8 X10*3/uL (1.2-4.9); Lymphocytes Percent Auto 28.9 % (20-40); Mean Corpuscular HGB Conc 33.7 g/dl (31.0-36.0); Mean Platelet Volume 10.9 fL (9.4-12.4); Monocytes Absolute Auto 0.6 X10*3/uL (0.1-1.2); Monocytes Percent Auto 9.8 % (2-11); Neutrophils Absolute Auto 3.6 x10*3/uL (2.0-8.3); Platelet Count 196 X10*3/uL (160-400); Red Blood Count 5.94 X10*6/uL (4.60-5.80); Red Cell Distribution Width 12.6 % (11.0-16.0); White Blood Count 6.1 X10*3/uL (4.8-10.8)
[2022-12-19 16:03] LABS: Prothrombin Time 12.1 SEC (11.1-13.3)
[2022-12-19 16:05] LABS: Partial Thromboplastin Time 31.8 SEC (26.0-36.4)
[2022-12-19 16:06] LABS: Alanine Aminotransferase 29 U/L (0-40); Albumin Level 4.6 g/dL (3.5-5.0); Alkaline Phosphatase 77 U/L (39-117); Anion Gap 15 (12-20); Aspartate Amino Transferase 30 U/L (5-37); Bilirubin Total 0.5 mg/dL (0.0-1.0); Blood Urea Nitrogen 13 mg/dL (9-16); Calcium 10.1 mg/dL (8.4-10.2); Carbon Dioxide 28 mmol/L (22-29); Chloride 102 mmol/L (96-108); Creatinine Clr Calc Pharmacy 73.4; Estimated Glomerular Filt Rate > 60; Glucose Random 93 mg/dL (60-115); Magnesium 2.3 mg/dL (1.6-2.6); Potassium 4.6 mmol/L (3.3-5.1); Sodium 140 mmol/L (135-145); Total Protein 8.7 g/dL (6.5-8.0)
[2022-12-19 16:12] LABS: B Type Natriuretic Peptide < 10 pg/mL (<100)
[2022-12-19 16:13] LABS: Troponin-I High Sensitivity 4.3 ng/L (<3.5-35.0)
[2022-12-19 16:32] LABS: Influenza A PCR NEGATIVE (Negative); Influenza B PCR NEGATIVE (Negative); Resp Syncy Virus RNA Qual PCR NEGATIVE (Negative); SARS COV2 PCR INHOUSE NEGATIVE (Negative)
== END 2022-12-19 18:39 | disposition home or self-care (01) ==
LOC: HO.ED 18:38
PROVIDERS: Physician Assistant Medical; Emergency Provider Emergency Medicine; PCP Internal Medicine
DX: R07.89 Other chest pain (principal); R10.13 Epigastric pain; R06.02 Shortness of breath; Z20.822 Contact with and (suspected) exposure to COVID-19; Z20.828 Contact with and (suspected) exposure to other viral communicable diseases; Z79.899 Other long term (current) drug therapy
CPT/HCPCS: 0241U; 36415; 71046; 80053; 83735; 83880; 84484; 85025; 85610; 85730; 93005; 99283

== ENCOUNTER 2023-01-11 11:19 | Outpatient (AMB) | payer MEDICARE, MEDICAID, SELFPAY ==
--- NOTE | 2023-01-11 11:23 | A.OFFVIS_ITS ---
Intake Vital Signs 01/11/23 11:29 Height 5 ft 8 in Weight 180 lb BMI 27.4 Intake Visit Reasons: OV-LT IF ROM CHECK , DOI 09/27/22 Intake Note: Lance 57 yr old male presents today for his follow up visit of his left IF ROM check, his date of injury is 09/27/22. States he is doing well with O.T. So far he has completed 3 sessions. States his sensitivity has improved. Allergies No Known Allergies [No Known Allergies*] Allergy (Unverified 01/11/23 11:29) HPI OV-LT IF ROM CHECK , DOI 09/27/22 HPI Details Lance is a 57 year old right hand dominant man who returns today for follow-up of his left index finger distal phalanx fracture & nailbed injury, from a crush injury, DOI: 10/02/22, and sutured in the ED on 10/02/22. He says he is doing well and his range of motion is better. He has been working with OT hand therapy and says his sensation has started to improve. He says he has only completed ~3 sessions with OT at this time. He has been trying to use his hand for basic activities. He continues to have a bump at the tip of his index finger, which he says only hurts when struck directly on the bump. He has no other pain with use of his finger. 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 This is non-tender but causes pain when he hits it directly on something, he can touch the pad of his finger without any pain. Not sure if this could perhaps be a small piece of bone that is working its way distally. The new nail is growing in and is now about 80+ % over the nail bed. He can make a fist and extend all of his digits without pain. Sensation is intact and hypersensitivity has improved. Cap refill is brisk Psych Appearance: grossly normal Affect: normal affect Attitude: cooperative Assessment & Plan Assessment & Plan (1) Injury of nail bed of finger of left hand: Code(s): S69.92XA - Unspecified injury of left wrist, hand and finger(s), initial encounter (2) Open fracture of distal phalanx of left index finger: Code(s): S62.631B - Displaced fracture of distal phalanx of left index finger, initial encounter for open fracture Plan Assessment & Plan: 1. Left index finger distal phalanx fracture, comminuted & open 2. Left index finger nailbed injury From a hammer strike, DOI: 10/02/22 I&D & sutured in the ED on 10/02/22 The patient appears to be doing well The new nail appears to be growing in well. He has been working with OT and no longer has any pain or hypersenstivity to the pad of his finger. He does have a focal 4mm bump on the tip of the index finger. Radiographs do not appear to show up piece of bone centered in the area. It is minimally tender only when struck directly on. This is not something new or getting worse. He will continue to work with OT hand therapy and on using his hand for daily activities He can follow up in 2 months to discuss the bump on the tip of his index finger, with radiographs. If this is not bothersome for him then he may cancel this appointment. He is happy with this plan Scribed for Donna Summers MD by Marc Rodriguez, medical laboratory specialist, on 01/11/23 at 11:40 AM, EST. Coding Level of Care Code Est Pt Level 3 (39910) Diagnoses Injury of nail bed of finger of left hand S69.92XA Open fracture of distal phalanx of left index finger S62.631B
[2023-01-11 11:29] VITALS: BMI 27.4
== END 2023-01-11 11:42 | disposition home or self-care (01) ==
PROVIDERS: PCP Internal Medicine; Visit Provider Orthopaedic Surgery
DX: S69.92XA Unspecified injury of left wrist, hand and finger(s), initial encounter (principal); S62.631B Displaced fracture of distal phalanx of left index finger, initial encounter for open fracture
CPT/HCPCS: 99213

== ENCOUNTER → 2023-01-11 11:19 | Outpatient (BNVA) | payer MEDICARE, MEDICAID, SELFPAY | PROVIDERS: PCP Internal Medicine; Visit Provider Orthopaedic Surgery | DX: S62.631B Displaced fracture of distal phalanx of left index finger, initial encounter for open fracture (principal); S69.92XA Unspecified injury of left wrist, hand and finger(s), initial encounter; W22.8XXA Striking against or struck by other objects, initial encounter; Y93.H3 Activity, building and construction; Y92.9 Unspecified place or not applicable; Y99.8 Other external cause status | CPT/HCPCS: 99212 ==

== ENCOUNTER 2023-01-18 10:30 | Outpatient (RCR) | payer MEDICARE, MEDICAID, SELFPAY ==
--- NOTE | 2022-12-29 14:34 | MHC.OT.EP ---
[address] [phone] Occupational Therapy Plan of Care Patient Name: Lance Pena Date of Evaluation: 12/29/22 Diagnosis: Displaced fracture of DIP on D2 Pain Location: No pain unless he hits it Pain Score: 4 Pain Scale Used: Numeric (0 - 10) Aggravating Factors: When I bangs it on something, putting away dishes Alleviating Factors: Advil Assessment: 57 YO M presents for OT services after he sustained a crush injury (10/02/22) and a displaced fracture of the tuft of the distal phalanx of D2. On assessment, he has good range, strength and sensation noted. He reports sensitivity and pain when he accidently bumps it when completing hide curer. He is doing well functionally with use of non-dominant hand, although generally avoiding use of index for fine motor tasks. The pt has been educated on desensitization techniques, ROM and scar mobilization. He would benefit from a brief course of OT to address ease with ADLs, desensitization, self management techniques, and ROM of the L D2. Frequency and Duration: The patient will be seen 1-2xwk/3 wks Short Term Goals: Ind with home desensitization program Ind with HEP for finger ROM Ind with scar mobilization with Dycem Improve Quick dash score from 42 to <30 Pt to complete FDT within normal limits [employer] Goals: Treatment Plan: Therapeutic Exercise Therapeutic Activity Home Exercise Program Splinting Patient Education Desensitization/Sensory Re-ed Edema Control ADL Training Ultrasound Iontophoresis Paraffin Fluidotherapy MHP Cold Packs Joint Mobilization Soft Tissue Mobilization Kinesiotaping 2x/wk for 3 weeks then self management Electronically Signed By: Sendy Colunga OT/s Please Sign and return to therapist. Thank you once again for your referral.
--- NOTE | 2023-01-18 11:05 | MHC.OT.DC ---
[address] [phone] F: [phone] Occupational Therapy Discharge Note Patient Name: Lance Pena Provider: Donna Summers Diagnosis: Displaced fracture of DIP on D2 Date of Evaluation: 12/29/22 Date of Discharge: 01/18/23 Treatments to Date: 5 Discharge Status: Achieved Goals Improved Function Discharge Summary: Pt initially presented for displaced fx of DIP on D2. He reported difficulties with fingertip sensitivity and pain with home chores. He completed a brief course of OT and has been able to complete home activities with no reports of pain. Goals have been met excluding FDT in which he was within the moderately functional section. Pt Ind with HEP and finger desensitization techniques. ROM and strength are within functional limits with and QuickDash scores have improved. Electronically Signed By: Sendy Colunga OT/s Reviewed/agree with student documentation: Yes Therapist: Vianey Richter OTR/L CHT Please Sign and return to therapist, thank you for your referral.
== END 2023-01-18 11:06 | disposition home or self-care (01) ==
LOC: HO.OT 10:30
PROVIDERS: PCP Internal Medicine; Visit Provider Orthopaedic Surgery
DX: S69.92XD Unspecified injury of left wrist, hand and finger(s), subsequent encounter (principal); S62.631B Displaced fracture of distal phalanx of left index finger, initial encounter for open fracture
CPT/HCPCS: 97110; 97112; 97165; 97530

== ENCOUNTER 2023-02-28 11:09 | Outpatient (AMB) | payer MEDICARE, MEDICAID, SELFPAY ==
[2023-02-28 11:27] VITALS: BMI 27.4
--- NOTE | 2023-02-28 11:27 | MHC.OFFVIS ---
Intake Vital Signs 02/28/23 11:27 Height 5 ft 8 in Weight 180 lb BMI 27.4 Intake Visit Reasons: OV-LT IF ROM CHECK , DOI 09/27/22 Intake Note: Lance 57 yr old male presents today for his follow up visit of his left IF ROM check, his date of injury is 09/27/22 S/P cont'O.T. Patient reports his ROM has improved. Allergies No Known Allergies [No Known Allergies*] Allergy (Verified 02/28/23 11:27) HPI OV-LT IF ROM CHECK , DOI 09/27/22 HPI Details Lance is a 57 year old right hand dominant man who returns today for follow-up of his left index finger distal phalanx fracture & nailbed injury, from a crush injury, DOI: 10/02/22, and sutured in the ED on 10/02/22. He says he is doing well and his range of motion is better. He continues to work with OT hand therapy and his hypersensitivity has been improving. He has been using his hand for basic activities and denies any pain with regular use. He continues to have a bump at the tip of his index finger, which he says only hurts when struck directly on the bump. He has no other pain with use of his finger. 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 Review of Systems Const All systems reviewed & are unremarkable except as noted in HPI and below Physical Exam Vital Signs: BMI result Body Mass Index 27.4 Const General: no acute distress and alert Orientation/consciousness: patient oriented x3 Neuro General: patient oriented x3 Extrem Other: Evaluation of Left Upper Extremity: The patient is alert, oriented, and in no acute distress Neuro: Median, Ulnar, Radial nerves motor and sensory intact and sensation is normal to the tips of all digits Vascular: Cap refill brisk ROM: He can make a nice fist and extend all his digits He does have a focal bump on the ulnar very tip of the index finger. This may be where there is a small piece of bone. It does not appear to be in any way trying to passed through the skin. This is not particularly tender, though he notes it can be tender if he hits it on something. The new nail has now grown in. There is good adherence of the nail to the nail bed for the proximal 90% of the nail. Distally we see either an area of old male that was not adherent, but which may become adherent as the new nail grows out, or, as I explained to the patient, it may be that the nail bed was damaged in this very distal aspect of the nail bed where it may not be adherent. This is really only perhaps 2-3 mm or so proximal to where the normal termination of the nail bed would be and is satisfactory. He can make a fist and extend all of his digits without pain. Psych Appearance: grossly normal Affect: normal affect Attitude: cooperative Assessment & Plan Assessment & Plan (1) Injury of nail bed of finger of left hand: Code(s): S69.92XA - Unspecified injury of left wrist, hand and finger(s), initial encounter (2) Open fracture of distal phalanx of left index finger: Code(s): S62.631B - Displaced fracture of distal phalanx of left index finger, initial encounter for open fracture Plan Assessment & Plan: 1. Left index finger distal phalanx fracture, comminuted & open 2. Left index finger nailbed injury From a hammer strike, DOI: 10/02/22 I&D & sutured in the ED on 10/02/22 The patient appears to be doing well The new nail appears to be growing in well. He has been working with OT and with good improvement in his hypersenstivity to the pad of his finger. He does have a focal 3mm bump on the tip of the index finger. Again it is possible that there is a small piece of comminuted bone beneath this bump. He says that right now it is not bothering him very much. I educated him about this, he knows that if it is something that he finds it is bothersome to him that we could see him again, with new x-rays, and then consider possible removal of a small piece of bone if that is what is bothering him. He has finished with OT and feels like the sensation and sensibility to his finger tip is doing well. He is happy with the current plan. He can follow up prn. Scribed for Donna Summers MD by Marc Rodriguez, biomedical engineering technologist, on 02/28/23 at 12:05 PM, EST. Orders: Orders XR hand LT min 3V Today M79.642 - Pain in left hand Coding Level of Care Code Est Pt Level 3 (80948) Diagnoses Injury of nail bed of finger of left hand S69.92XA Open fracture of distal phalanx of left index finger S62.631B
== END 2023-02-28 12:12 | disposition home or self-care (01) ==
PROVIDERS: PCP Internal Medicine; Visit Provider Orthopaedic Surgery
DX: S62.631B Displaced fracture of distal phalanx of left index finger, initial encounter for open fracture (principal); S69.92XA Unspecified injury of left wrist, hand and finger(s), initial encounter
CPT/HCPCS: 99213

== ENCOUNTER 2023-02-28 11:09 | Outpatient (REF) | payer MEDICARE, MEDICAID, SELFPAY | END 2023-02-28 11:10 | disposition home or self-care (01) | LOC: HO.HOSX 11:09 | PROVIDERS: PCP Internal Medicine; Visit Provider Orthopaedic Surgery | DX: S69.92XA Unspecified injury of left wrist, hand and finger(s), initial encounter (principal); S62.631D Displaced fracture of distal phalanx of left index finger, subsequent encounter for fracture with routine healing | CPT/HCPCS: 99212 ==

== ENCOUNTER 2024-05-14 16:30 | Inpatient (IN) | payer MEDICARE, MEDICAID, SELFPAY ==
--- NOTE | ~2024-05-14 | XR_ITS ---
CLINICAL HISTORY: pain 1 view abdomen Comparison: None Findings: Abnormal small bowel gas pattern with 2.8 cm dilatation of small-bowel loops with air-fluid levels in the mid abdomen. There is a paucity of bowel gas in the lower abdomen which may be secondary to fluid-filled loops. Stool and gas is present in the descending colon and sigmoid region. Normal stool quantity. No abnormal calcifications. No obvious pneumoperitoneum or pneumatosis. No acute fractures Impression: Dilatation of small-bowel consistent with small-bowel obstruction. Follow-up KUBs or CT are recommended to look for progression or resolution of abnormal bowel-gas pattern. This document has been electronically signed by: Ernesto Mason MD on 05/14/2024 19:02:31
--- NOTE | ~2024-05-14 | XR_ITS ---
EXAMINATION: XR ABDOMEN 1 VIEW (KUB) HISTORY: f/up for PSBO COMPARISON: Comparison is made with the prior examination dated 05/15/2024. FINDINGS: Two supine views of the abdomen are submitted. Again seen are multiple mildly dilated loops of small bowel in the midabdomen consistent with obstruction. There is a gas and stool throughout the colon. No abnormal calcifications are identified. There are no abnormal soft tissue masses. The bones are intact. XR/XR KUB IMPRESSION: Findings consistent with small bowel obstruction without significant change. Electronically signed by: Ezra Banerjee MD 05/16/2024 08:11 AM EDT
--- NOTE | ~2024-05-14 | XR_ITS ---
EXAMINATION: XR ABDOMEN 1 VIEW (KUB) HISTORY: question of small bowel obstruction COMPARISON: Comparison is made with the prior examination dated 05/14/2024. FINDINGS: Three supine views of the abdomen are submitted. Multiple loops of mildly dilated small bowel are noted in the midabdomen consistent with obstruction. There is a small amount of gas and stool in the colon. There is excreted contrast in the urinary bladder from prior CT. No abnormal calcifications are identified. There are no abnormal soft tissue masses. The bones are intact. XR/XR KUB IMPRESSION: Findings consistent with small bowel obstruction. Electronically signed by: Ezra Banerjee MD 05/15/2024 09:55 AM EDT
--- NOTE | ~2024-05-14 | CT_ITS ---
CLINICAL HISTORY: n v pain abnormal KUB Exam: CT Abdomen and Pelvis With IV Contrast Comparison: Plain films 05/14/2024. Findings: The liver density is homogeneous with fatty infiltration No biliary abnormalities The spleen is normal in size No pancreatic ductal dilatation No hydronephrosis There are several dilated fluid-filled loops of small bowel due to distal small-bowel obstruction with zone of transition in the right lower quadrant. There is an enhancing tubular inflammatory mass involving the tip of the cecum No secondary signs of acute appendicitis No free fluid/free air No vascular abnormalities Urinary bladder wall is thickened, correlate with UA for cystitis. There is symmetric enlargement of the prostate gland. No suspicious skeletal lesions. Calcified disc protrusion is present posteriorly at L5-S1 Impression: High-grade acute distal small-bowel obstruction with inflammatory 5 cm soft tissue mass in the region of the cecum with inflammatory thickening of the wall of the terminal ileum. Differential diagnosis would favor cecal neoplasm, appendicitis. Additional soft tissue enhancing 3.6 cm inflammatory mass is located in the mesentery image 33 series 2 consistent with omental metastasis. This document has been electronically signed by: Ernesto Mason MD on 05/14/2024 20:46:25
[2024-05-14 17:03] VITALS: BP 153/93; PULSE 97; RESP 20; TEMP 36.9; O2SAT 98; BMI 24.7
[2024-05-14 17:16] LABS: MANUAL DIFF FLAG NO
[2024-05-14 17:19] LABS: Basophils Percent Auto 0.2 % (0-2); Eosinophils Percent Auto 0.1 % (0-4); Hemoglobin 17.8 g/dl (14.0-18.0); Imm Gran Abs Auto 0.04 X10*3/uL (0.00-0.03); Imm Gran Pct Auto 0.3 % (0.0-0.4); Lymphocytes Absolute Auto 0.9 X10*3/uL (1.2-4.9); Lymphocytes Percent Auto 7.7 % (20-40); Mean Corpuscular HGB Conc 34.2 g/dl (31.0-36.0); Mean Corpuscular Hemoglobin 28.2 pg (27.0-33.0); Mean Corpuscular Volume 82.3 fL (80.0-98.0); Mean Platelet Volume 10.1 fL (9.4-12.4); Monocytes Absolute Auto 0.7 X10*3/uL (0.1-1.2); Monocytes Percent Auto 5.5 % (2-11); Neutrophils Absolute Auto 10.5 x10*3/uL (2.0-8.3); Neutrophils Percent Auto 86.2 % (45-73); Platelet Count 272 X10*3/uL (160-400); Red Blood Count 6.32 X10*6/uL (4.60-5.80); Red Cell Distribution Width 12.6 % (11.0-16.0); White Blood Count 12.2 X10*3/uL (4.8-10.8)
[2024-05-14 17:36] LABS: Alanine Aminotransferase 25 U/L (0-40); Alkaline Phosphatase 112 U/L (39-117); Anion Gap 17 (12-20); Aspartate Amino Transferase 33 U/L (5-37); Bilirubin Total 0.9 mg/dL (0.0-1.0); Blood Urea Nitrogen 16 mg/dL (9-16); Calcium 10.9 mg/dL (8.4-10.2); Carbon Dioxide 29 mmol/L (22-29); Chloride 97 mmol/L (96-108); Estimated Glomerular Filt Rate > 60; Glucose Random 119 mg/dL (60-115); Lipase 31 U/L (8-78); Magnesium 2.2 mg/dL (1.6-2.6); Potassium 4.5 mmol/L (3.3-5.1); Sodium 138 mmol/L (135-145); Total Protein 9.8 g/dL (6.5-8.0)
--- NOTE | 2024-05-14 18:25 | ED_ITS ---
HPI - General Adult General Chief complaint: Abdominal Pain Stated complaint: Abdominal pain Time Seen by Provider: 05/14/24 19:10 Source: patient, family and old records reviewed Mode of arrival: ambulatory Limitations: no limitations History of Present Illness ED Provider: ABHISHEK SERRANO narrative: 59 yo male with PMH of anxiety no prior abdominal surgeries who notes waking up today with mid to upper abdominal pain and n/v all day. He has had two soft BMs this AM but then notes no real flatus. He states he cannot keep anything down. He denies fevers. is not ill and they have not traveled and both share meals. He has never had this before. States normal colonoscopy at [place] about 5 years ago and is due for another in June complaint: abdominal pain n/v Onset (ago): day(s) (early this AM) Location: abdomen Radiation: non-radiation Severity: moderate Quality: aching Pain Consistency: intermittent Relieving factors: other (feels better after vomiting) Exacerbating factors: movement Associated symptoms: fever/chills, loss of appetite, malaise and nausea/vomiting Treatments prior to arrival: none Related Data Home Medications ?Medication ?Instructions ?Recorded ?Confirmed fluoxetine 40 mg capsule 40 mg PO DAILY 10/04/22 hydroxyzine pamoate 50 mg capsule 50 mg PO BID PRN 10/04/22 Previous Rx's ?Medication ?Instructions ?Recorded acetaminophen 325 mg tablet 650 mg (2 x 325 mg) PO Q6H PRN 10/02/22 (Tylenol) pain #30 tabs ibuprofen 600 mg tablet 600 mg PO Q6H PRN pain #30 tabs 10/02/22 Allergies Allergy/AdvReac Type Severity Reaction Status Date / Time No Known Allergies Allergy Verified 05/14/24 17:05 [No Known Allergies*] Review of Systems 2 Review of Systems: Constitutional : No Weight loss, No Fever, pos Chills ENT/Mouth : No sore throat, No Rhinorrhea Eyes: No Swelling, No Redness Cardiovascular : No Chest Pain, No SOB, NoEdema Respiratory : No Cough, No Sputum, No Wheezing Gastrointestinal : Positive Nausea, Positive Vomiting, no Diarrhea, positive abdominal Pain, No Hematochezia, No Melena Genitourinary : No Dysuria, No Urinary Frequency, No Hematuria, No Urgency Musculoskeletal : No joint pain, No Myalgias, No Joint Swelling Skin : No Skin Lesions, No rash Neuro : No Weakness, No Numbness, No Dizziness, No Headache All other systems reviewed and are negative. [facility] Past Medical History Attestation statement: The following information was validated with the patient. 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 Oriented X3. No acute distress. Eyes: Pupils equal, round and reactive to light. ENT: Pharynx normal. Neck: Normal inspection. Neck supple. CVS: Normal heart rate and rhythm. Pulses normal. Respiratory: No respiratory distress. Breath sounds normal. Abdomen: Soft and mild upper abdominal pain but no rebound, distention, guarding Skin: Skin warm and dry. Normal skin color. Normal skin turgor. Extremities: No lower extremity edema. No calf ttp Neuro: Oriented X 3. No motor deficit. No sensory deficit. CN2-12 intact Course Course Course Narrative: This is a rapid medical exam performed by Lakia Phillips PA-C. Patient is a 59-year-old male who struggles with constipation who presents with the abdominal pain for a day. Patient does not think that he is constipated at this point. The discomfort is over mid abdomen that is nonradiating. Associated chills, denies nausea vomiting diarrhea or fever. On exam the abdomen is soft, nontender no guarding. We will obtain screening labs and a KUB. The patient is stable and can return to the waiting room pending his full medical assessment. Medications Administered Discontinued Medications Generic Name Dose Route Start Last Admin Trade Name Freq PRN Reason Stop Dose Admin Lactated Ringer's 1,000 mls @ 999 mls/hr 05/14/24 19:11 05/14/24 19:34 Lr IV 05/14/24 20:11 999 mls/hr .Q1H1M ONE Administration Iohexol 100 ml 05/14/24 19:47 05/14/24 19:47 Iohexol 350 Mg/Ml 100 Ml Infus..Btl IV 05/14/24 19:48 85 ml ONCE ONE Administration Ondansetron HCl 4 mg 05/14/24 19:11 05/14/24 19:32 Ondansetron Hcl 4 Mg/2 Ml Vial IVPUSH 05/14/24 19:12 4 mg ONCE ONE Administration Medical Decision Making Medical Decision Making MDM Narrative: 59 yo male with no sig PMH and no prior abdominal surgeries here with c/o n/v and upper abdominal pain all day without known exposures/travel. At this time will obtain basic labs, start on IVF, pepcid/zofran/morphine. CT scan ordered given abnormal KUB to rule out ileus, SBO. Differential Diagnosis Differential Diagnoses: The differential diagnosis associated with the presentation includes enteritis, ileus, SBO. Admission/Observation Consideration of admission/observation: Escalation of care including admission/observation considered admit given bowel obstruction Consult Healthcare Provider Management of the patient was discussed with: Receptionist (Dr. Awan to admit) Lab Data [facility] Lab Attestation statement: I reviewed the patient's lab results. 05/14/24 17:12 05/14/24 17:12 Labs: Lab Results 05/14/24 Range/Units 17:12 WBC 12.2 H (4.8-10.8) X10*3/uL RBC 6.32 H (4.60-5.80) X10*6/uL Hgb 17.8 (14.0-18.0) g/dl Hct 52.0 (42.0-52.0) % MCV 82.3 (80.0-98.0) fL MCH 28.2 (27.0-33.0) pg MCHC 34.2 (31.0-36.0) g/dl RDW 12.6 (11.0-16.0) % Plt Count 272 D (160-400) X10*3/uL MPV 10.1 (9.4-12.4) fL Immature Gran % (Auto) 0.3 (0.0-0.4) % Neut % (Auto) 86.2 H (45-73) % Lymph % (Auto) 7.7 L (20-40) % Weber % (Auto) 5.5 (2-11) % Eos % (Auto) 0.1 (0-4) % Baso % (Auto) 0.2 (0-2) % Lymph # (Auto) 0.9 L (1.2-4.9) X10*3/uL Weber # (Auto) 0.7 (0.1-1.2) X10*3/uL Eos # (Auto) 0.0 (0.0-0.4) X10*3/uL Baso # (Auto) 0.0 (0.0-0.2) X10*3/uL Abs Immat Gran (auto) 0.04 H (0.00-0.03) X10*3/uL Absolute Neuts (auto) 10.5 H (2.0-8.3) x10*3/uL Absolute Nucleated RBC 0.000 (0.0-0.012) X10*3/uL Nucleated RBC % (auto) 0.0 (0.0-0.2) /100WBC Sodium 138 (135-145) mmol/L Potassium 4.5 (3.3-5.1) mmol/L Chloride 97 (96-108) mmol/L Carbon Dioxide 29 (22-29) mmol/L Anion Gap 17 (12-20) BUN 16 (9-16) mg/dL Creatinine 1.15 (0.5-1.4) mg/dL Estim Creat Clear Calc 66.0 Estimated GFR > 60 Random Glucose 119 H (60-115) mg/dL Calcium 10.9 H D (8.4-10.2) mg/dL Magnesium 2.2 (1.6-2.6) mg/dL Total Bilirubin 0.9 (0.0-1.0) mg/dL AST 33 (5-37) U/L ALT 25 (0-40) U/L Alkaline Phosphatase 112 (39-117) U/L Total Protein 9.8 H (6.5-8.0) g/dL Albumin 5.0 (3.5-5.0) g/dL Lipase 31 (8-78) U/L Independent Interpretation I performed an independent interpretation of an: Plain X-Ray (dilated bowels) and CT Scan (abnormal bowel loops, cecal inflammation) Radiology Impression Discussion of test interpretation with radiology: I have reviewed the radiologist's reading. Independent Historian Clinical information obtained from an independent historian. History obtained from or confirmed by: Spouse External Record Review External record reviewed: Outpatient record Critical Care Time Critical Care Time Critical Care Time: Yes Total Critical Care Time: 35 Attestation: IV morphine for pain with improvement in pain, surgical consult I attest to this time spent taking care of the patient Discharge Plan Discharge Clinical Impression: Abdominal pain, Acute nausea with nonbilious vomiting, SBO (small bowel obstruction) Patient Disposition: Admitted As Inpatient Prescriptions: No Action acetaminophen [Tylenol] 325 mg tablet 650 mg PO Q6H PRN (Reason: pain) Qty: 30 0RF ibuprofen 600 mg tablet 600 mg PO Q6H PRN (Reason: pain) Qty: 30 0RF hydroxyzine pamoate 50 mg capsule 50 mg PO BID PRN fluoxetine 40 mg capsule 40 mg PO DAILY Print Language: Kyrgyz
[2024-05-14] MEDS: ondansetron HCL 4 MG/2 ML VIAL IVPUSH (19:32)
[2024-05-14] MEDS: Lactated Ringers 1,000 ML 999 ML IV (19:34)
[2024-05-14] MEDS: iohexoL 350 MG/ML 100 ML INFUS..BTL IV (19:47)
[2024-05-14 19:59] VITALS: BP 117/70; PULSE 79; RESP 20; TEMP 36.6; O2SAT 97
--- NOTE | 2024-05-14 21:43 | PHA.MEDREC ---
Addendum entered by Usha Ortez RPh 05/14/24 22:03: [facility] reviewed Original Note: Pharmacy Consult ? Medication Reconciliation Pharmacy has completed the medication reconciliation. Spoke to patient to confirm med list. Patient states he is no longer taking Aripiprazole 5 mg ( Now on 2 mg), Fluoxetine 40 mg, Fluticasone nasal spray, Ibuprofen 600 mg, and Loratadine 10 mg. Patient states he sometimes takes folic acid 1 mg.
[2024-05-14] MEDS: 0.9 % Sodium Chloride 1,000 ML 125 ML IVCONT (22:25)
--- NOTE | 2024-05-14 22:27 | PM.HPGS ---
History of Present Illness History of Present Illness Date of Service: 05/14/24 Chief complaint: Abdominal pain Narrative: Lance Pena is a 59 year old male who comes in today complaining of nausea and vomiting which is very unusual for him. He also has some generalized abdominal pain. 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 He thinks that he had a colonoscopy probably closer to when he was 49 years old and they did not find anything and he is coming up due for another 1 it is 59 years old. He has been complaining constipation which is worsened over time in which he treats with MiraLax. Sometimes he takes a once a day sometimes twice as he was directed. He says he did have 2 bowel movements earlier today small wounds but they were soft and then. He denies any family history of any colon cancer. He does not have any symptoms consistent with appendicitis. Generally he has had on and off constipation and just feeling a little more bloated in the days prior. No other sick contacts. He is retired. He has never had any abdominal surgery. Denies any blood per rectum. He does have issues with heartburn and reflux disease and takes medication a PPI for this. 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 Meds Allergies Allergy/AdvReac Type Severity Reaction Status Date / Time No Known Allergies Allergy Verified 05/14/24 17:05 [No Known Allergies*] Active Medications: Current Medications Enoxaparin Sodium (Enoxaparin Sodium 40 Mg/0.4 Ml Syringe) 40 mg SUBCUT Q24H [facility] Sodium Chloride (Ns) 1,000 mls @ 125 mls/hr IVCONT .Q8H [facility] Last Admin: 05/14/24 22:25 Dose: 125 mls/hr Ketorolac Tromethamine (Ketorolac Tromethamine 15 Mg/Ml Vial) 15 mg IVPUSH Q6H PRN PRN Reason: Pain, Moderate(Pain Scale 4-6) Stop: 05/19/24 22:15 Morphine Sulfate (Morphine Sulfate 4 Mg/Ml Cartridge) 3 mg IVPUSH Q4H PRN; Protocol PRN Reason: Pain, Severe (Pain Scale 7-10) Ondansetron HCl (Ondansetron Hcl 4 Mg/2 Ml Vial) 4 mg IVPUSH Q8H PRN PRN Reason: Nausea and Vomiting Pantoprazole Sodium (Pantoprazole Sodium 40 Mg/10 Ml Vial) 40 mg IVPUSH DAILY@0630 [facility] Sodium Chloride (0.9 % Sodium Chloride Flush 3 Ml Syringe) 3 ml IVFLUSH [facility] Home Medications ?Medication ?Instructions ?Recorded ?Confirmed ?Last Taken ?Type aripiprazole 2 mg tablet 2 mg PO BEDTIME 05/14/24 05/14/24 05/13/24 History azelastine 137 mcg (0.1 %) nasal 2 spray intranasal BID 05/14/24 05/14/24 Unknown History spray folic acid 1 mg tablet 1 mg PO DAILY 05/14/24 05/14/24 Unknown History hydroxyzine pamoate 50 mg capsule 100 mg PO BEDTIME PRN Anxiety 05/14/24 05/14/24 Unknown History omeprazole 20 mg capsule,delayed 20 mg PO BID@0630,1630 05/14/24 05/14/24 05/14/24 History release polyethylene glycol 3350 17 17 g PO DAILY PRN constipation 05/14/24 05/14/24 Unknown History gram/dose oral powder (Gavilax) Physical Exam Vital Signs: Vital Signs: Last Vital Signs Temp 97.8 F 05/14/24 19:59 Pulse 79 05/14/24 19:59 Resp 20 05/14/24 19:59 BP 117/70 05/14/24 19:59 Pulse Ox 97 05/14/24 19:59 O2 Del Method Room Air 05/14/24 19:59 BMI result Body Mass Index 24.7 Const: General: cooperative, healthy appearing, comfortable and no acute distress Orientation/consciousness: patient oriented x3 HEENT: Head: Yes normal to inspection Resp: Auscultation: clear to auscultation bilaterally Cardio: Rate: regular rate Rhythm: regular rhythm GI: Other: Abdomen mildly distended mild tenderness to deep palpation in the right lower quadrant no guarding no rebound no peritoneal signs no CVA tenderness no masses Skin: Other: Nonicteric Neuro: General: patient oriented x3 Extrem: General: Yes normal to inspection Psych: Appearance: grossly normal Mental Status: mental status grossly normal Speech and movement: Normal speech and movement present Attitude: cooperative Thought process: Normal thought process present Thought content: Normal thought content present Insight: Good insight present (Psych) Judgement: Good judgement present (Psych) Results Results Labs: Short CBC 05/14/24 Range/Units 17:12 WBC 12.2 H (4.8-10.8) X10*3/uL Hgb 17.8 (14.0-18.0) g/dl Hct 52.0 (42.0-52.0) % Plt Count 272 D (160-400) X10*3/uL BMP 05/14/24 17:12 Sodium 138 Potassium 4.5 Chloride 97 Carbon Dioxide 29 BUN 16 Creatinine 1.15 Calcium 10.9 H D Liver Function 05/14/24 Range/Units 17:12 Total Bilirubin 0.9 (0.0-1.0) mg/dL AST 33 (5-37) U/L ALT 25 (0-40) U/L Alkaline Phosphatase 112 (39-117) U/L Albumin 5.0 (3.5-5.0) g/dL Abdomen CT scan report/results: report reviewed and image reviewed CT scan - pelvis: report reviewed and image reviewed Additional studies: ADM Date: 05/14/24 Loc: HO.ED Attending Dr: Ordering Physician: Cee Haney DO Date of Service: 05/14/24 Procedure(s): CT abdomen pelvis w IV con Accession Number(s): [id number] cc: Darrius Rangel III, MD; Cee Haney DO~ Report Number: [id number]: Total DLP = 493.00 mGy-cm ADDENDUMThis document has been electronically signed by: Ernesto Mason MD on 05/14/2024 20:46:25 ADDENDUM: This report was discussed with Dr. Cee Haney on May 14, 2024 20:48:00 EDT. This document has been electronically signed by: Dona Guerrier on 05/14/2024 20:49:00 Addendum Dictated By: Ernesto Mason MD Addendum Signed By: <Electronically signed by Ernesto Mason MD in [place]> 05/14/242049 Addendum Cosigned By: DD/ TD/TT: 05/14/24 CLINICAL HISTORY: n v pain abnormal KUB Exam: CT Abdomen and Pelvis With IV Contrast Comparison: Plain films 05/14/2024. Findings: The liver density is homogeneous with fatty infiltration No biliary abnormalities The spleen is normal in size No pancreatic ductal dilatation No hydronephrosis There are several dilated fluid-filled loops of small bowel due to distal small-bowel obstruction with zone of transition in the right lower quadrant. There is an enhancing tubular inflammatory mass involving the tip of the cecum No secondary signs of acute appendicitis No free fluid/free air No vascular abnormalities Urinary bladder wall is thickened, correlate with UA for cystitis. There is symmetric enlargement of the prostate gland. No suspicious skeletal lesions. Calcified disc protrusion is present posteriorly at L5-S1 Impression: High-grade acute distal small-bowel obstruction with inflammatory 5 cm soft tissue mass in the region of the cecum with inflammatory thickening of the wall of the terminal ileum. Differential diagnosis would favor cecal neoplasm, appendicitis. Additional soft tissue enhancing 3.6 cm inflammatory mass is located in the mesentery image 33 series 2 consistent with omental metastasis. 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 It has been 10 years since his colonoscopy most likely and he has been having increasing GI complaints specifically constipation and abdominal pain and has followed through with his doctor's recommendations to take daily MiraLax. He has no family history of colon cancer. He denies any unexpected weight loss. Question the etiology of this mass. At this point in time plan to admit and treat for small bowel obstruction NPO if he vomits again an NG-tube IV fluid resuscitation. His abdominal exam is relatively benign. If he improves and we can carry out a colonoscopy prep then he could benefit from having a colonoscopy evaluating the colon and then making a decision for the next surgical step depending on the findings. If this is not possible he may just need to undergo exploratory surgery with possible bowel resection and evaluate afterwards the pathology. Today he is relatively stable comfortable so we will follow up on his exam tomorrow and also add on a CEA to his labs. This was all extensively discussed with the patient who understands and agrees with the plan for now. Question the etiology of the mesenteric mass question to be metastatic mass. Liver shows no lesions of concern Quality Stroke Does the patient have a stroke diagnosis?: No VTE Prior VTE?: No VTE Risk Level:: Surgical - low VTE Device Contraindication: N/A - Device Ordered VTE Drug Contraindication: N/A - Med Ordered Procedures Date of Service Date of Service: 05/14/24
[2024-05-15] VITALS (7 sets, daily range): BP systolic 117–138; BP diastolic 60–79; PULSE 65–82; RESP 14–18; TEMP 36.4–37.2; O2SAT 95–97; BMI 24.6
[2024-05-15] MEDS: Ketorolac Tromethamine 15 MG/ML VIAL IVPUSH ×3 (00:37→22:30)
--- NOTE | 2024-05-15 01:39 | PC.NURSE ---
vital taken, re-assess for pain, pt is sleeping right now.
[2024-05-15 05:10] LABS: Basophils Absolute Auto 0.1 X10*3/uL (0.0-0.2); Basophils Percent Auto 0.5 % (0-2); Eosinophils Percent Auto 0.2 % (0-4); Hematocrit 47.8 % (42.0-52.0); Hemoglobin 15.7 g/dl (14.0-18.0); Imm Gran Abs Auto 0.02 X10*3/uL (0.00-0.03); Imm Gran Pct Auto 0.2 % (0.0-0.4); Lymphocytes Percent Auto 10.5 % (20-40); MANUAL DIFF FLAG NO; Mean Corpuscular HGB Conc 32.8 g/dl (31.0-36.0); Mean Corpuscular Hemoglobin 27.4 pg (27.0-33.0); Mean Corpuscular Volume 83.4 fL (80.0-98.0); Mean Platelet Volume 10.5 fL (9.4-12.4); Monocytes Absolute Auto 1.2 X10*3/uL (0.1-1.2); Monocytes Percent Auto 12.4 % (2-11); Neutrophils Absolute Auto 7.1 x10*3/uL (2.0-8.3); Neutrophils Percent Auto 76.2 % (45-73); Platelet Count 245 X10*3/uL (160-400); Red Blood Count 5.73 X10*6/uL (4.60-5.80); Red Cell Distribution Width 12.8 % (11.0-16.0); White Blood Count 9.4 X10*3/uL (4.8-10.8)
[2024-05-15 05:28] LABS: Anion Gap 14 (12-20); Blood Urea Nitrogen 17 mg/dL (9-16); Calcium 9.6 mg/dL (8.4-10.2); Carbon Dioxide 31 mmol/L (22-29); Chloride 99 mmol/L (96-108); Estimated Glomerular Filt Rate > 60; Glucose Random 103 mg/dL (60-115); Potassium 4.9 mmol/L (3.3-5.1); Sodium 139 mmol/L (135-145)
[2024-05-15] MEDS: 0.9 % Sodium Chloride 1,000 ML 125 ML IVCONT ×3 (06:30→22:26)
[2024-05-15] MEDS: Pantoprazole Sodium 40 MG/10 ML VIAL IVPUSH (06:30)
--- NOTE | 2024-05-15 06:42 | PC.NURSE ---
pt oob to bathroom with a steady gait. medicated per apr,
--- NOTE | 2024-05-15 08:17 | PM.PNGS ---
Subjective Subjective Date of Service: 05/15/24 Interval history: History reviewed Patient with chronic constipation However, yesterday morning, had multiple episodes of vomiting, upper abdominal pain Has had no vomiting since about 05:00 o'clock yesterday afternoon Passing flatus Denies nausea Denies significant pain currently Says he feels much better Physical Exam Vital Signs: Vital Signs: Last Vital Signs Temp 98.0 F 05/15/24 01:38 Pulse 65 05/15/24 04:55 Resp 16 05/15/24 04:55 BP 125/71 05/15/24 04:55 Pulse Ox 97 05/15/24 04:55 O2 Del Method Room Air 05/15/24 04:55 BMI result Body Mass Index 24.7 Const: Other: Looks well General: comfortable and no acute distress Resp: Effort & Inspection: normal respiratory effort Cardio: Rate: regular rate GI: Inspection: No distended Palpation (GI): Soft to palpation, not firm, nontender and no guarding Objective Data Active Medications Enoxaparin Sodium (Enoxaparin Sodium 40 Mg/0.4 Ml Syringe) 40 mg SUBCUT Q24H [facility] Sodium Chloride (Ns) 1,000 mls @ 125 mls/hr IVCONT .Q8H [facility] Last Admin: 05/15/24 06:30 Dose: 125 mls/hr Documented By: BERNARD Ketorolac Tromethamine (Ketorolac Tromethamine 15 Mg/Ml Vial) 15 mg IVPUSH Q6H PRN PRN Reason: Pain, Moderate(Pain Scale 4-6) Stop: 05/19/24 22:15 Last Admin: 05/15/24 00:37 Dose: 15 mg Documented By: BERNARD Morphine Sulfate (Morphine Sulfate 4 Mg/Ml Cartridge) 3 mg IVPUSH Q4H PRN; Protocol PRN Reason: Pain, Severe (Pain Scale 7-10) Ondansetron HCl (Ondansetron Hcl 4 Mg/2 Ml Vial) 4 mg IVPUSH Q8H PRN PRN Reason: Nausea and Vomiting Pantoprazole Sodium (Pantoprazole Sodium 40 Mg/10 Ml Vial) 40 mg IVPUSH DAILY@0630 [facility] Last Admin: 05/15/24 06:30 Dose: 40 mg Documented By: BERNARD Sodium Chloride (0.9 % Sodium Chloride Flush 3 Ml Syringe) 3 ml IVFLUSH QSHIFT [facility] Last Admin: 05/15/24 06:22 Dose: Not Given Documented By: BERNARD Non-Admin Reason: IV Running Labs 05/15/24 04:53 05/15/24 04:53 Labs: Laboratory Results - last 24 hr 05/14/24 05/15/24 17:12 04:53 MCV 82.3 83.4 MCH 28.2 27.4 MCHC 34.2 32.8 RDW 12.6 12.8 Plt Count 272 D 245 MPV 10.1 10.5 Immature Gran % (Auto) 0.3 0.2 Neut % (Auto) 86.2 H 76.2 H Lymph % (Auto) 7.7 L 10.5 L Duchesne % (Auto) 5.5 12.4 H Eos % (Auto) 0.1 0.2 Baso % (Auto) 0.2 0.5 Lymph # (Auto) 0.9 L 1.0 L Duc[place]ne # (Auto) 0.7 1.2 Eos # (Auto) 0.0 0.0 Baso # (Auto) 0.0 0.1 Abs Immat Gran (auto) 0.04 H 0.02 Absolute Neuts (auto) 10.5 H 7.1 Absolute Nucleated RBC 0.000 0.000 Nucleated RBC % (auto) 0.0 0.0 Anion Gap 17 14 Estim Creat Clear Calc 66.0 66.0 Estimated GFR > 60 > 60 Random Glucose 119 H 103 Calcium 10.9 H D 9.6 D Magnesium 2.2 Total Bilirubin 0.9 AST 33 ALT 25 Alkaline Phosphatase 112 Total Protein 9.8 H Albumin 5.0 Lipase 31 Carcinoembryonic Ag 149.40 Procedures Date of Service Date of Service: 05/15/24 Progress Note: A&P Assessment and plan (1) Acute nausea with nonbilious vomiting: Status: Acute Assessment and Plan: Now asymptomatic Denies any pain, nausea No tenderness Passing flatus Labs okay CT suggestive of distal small bowel obstruction, possible neoplastic process in the cecum Has good amounts of air distally in the colon We will repeat KUB today IV fluids Okay have to have ice chips, sips of clears Exam currently very benign Looks well overall Continue to workup for question of obstruction, neoplastic etiology Possible need for surgical intervention We will review images with radiologist Time Spent With Patient Time: Total time managing care of this patient today ____ minutes. Quality Stroke Does the patient have a stroke diagnosis?: No VTE Prior VTE?: No VTE Risk Level:: Surgical - low VTE Device Contraindication: N/A - Device Ordered VTE Drug Contraindication: N/A - Med Ordered
[2024-05-15] MEDS: Enoxaparin Sodium 40 MG/0.4 ML SYRINGE SUBCUT (09:05)
[2024-05-15] MEDS: 0.9 % Sodium Chloride Flush 3 ML SYRINGE IVFLUSH (09:05)
--- NOTE | 2024-05-15 09:40 | PC.NURSE ---
Patient arrived to s3 from ED. Admission assessment completed. Bed alarm on and safety measures in place. Call marquis within reach and patient was educated on use. Primary RN made aware.
--- NOTE | 2024-05-15 13:58 | MHC.CM.PN ---
pt lives with his is indepedent has no servires has a ride home dc plan home n/s
--- NOTE | 2024-05-15 15:51 | P.EN_ITS ---
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
[2024-05-16] VITALS (7 sets, daily range): BP systolic 126–144; BP diastolic 60–80; PULSE 59–75; RESP 14–18; TEMP 36.1–37.1; O2SAT 96–100
[2024-05-16] MEDS: Pantoprazole Sodium 40 MG/10 ML VIAL IVPUSH (05:27)
[2024-05-16] MEDS: 0.9 % Sodium Chloride 1,000 ML 125 ML IVCONT ×3 (05:27→22:25)
--- NOTE | 2024-05-16 07:51 | P.PNGS_ITS ---
Subjective Subjective Date of Service: 05/16/24 Interval history: Feels well Denies significant pain Passing flatus No nausea or vomiting overnight Feels a little bloated still Physical Exam 2 Vital Signs: Vital Signs: Last Vital Signs Temp 97.7 F 05/16/24 07:17 Pulse 69 05/16/24 07:17 Resp 14 05/16/24 07:17 BP 126/60 05/16/24 07:17 Pulse Ox 97 05/16/24 07:17 O2 Del Method Room Air 05/16/24 07:17 BMI result Body Mass Index 24.6 Const: General: comfortable and no acute distress Resp: Effort & Inspection: normal respiratory effort Cardio: Rate: regular rate GI: Palpation (GI): Soft to palpation, not firm, nontender and no guarding Objective Data Active Medications Enoxaparin Sodium (Enoxaparin Sodium 40 Mg/0.4 Ml Syringe) 40 mg SUBCUT Q24H [facility] Last Admin: 05/15/24 09:05 Dose: 40 mg Documented By: ANALILIA Sodium Chloride (Ns) 1,000 mls @ 125 mls/hr IVCONT .Q8H [facility] Last Admin: 05/16/24 05:27 Dose: 125 mls/hr Documented By: MOHIT Ketorolac Tromethamine (Ketorolac Tromethamine 15 Mg/Ml Vial) 15 mg IVPUSH Q6H PRN PRN Reason: Pain, Moderate(Pain Scale 4-6) Stop: 05/19/24 22:15 Last Admin: 05/15/24 22:30 Dose: 15 mg Documented By: MOHIT Morphine Sulfate (Morphine Sulfate 4 Mg/Ml Cartridge) 3 mg IVPUSH Q4H PRN; Protocol PRN Reason: Pain, Severe (Pain Scale 7-10) Ondansetron HCl (Ondansetron Hcl 4 Mg/2 Ml Vial) 4 mg IVPUSH Q8H PRN PRN Reason: Nausea and Vomiting Pantoprazole Sodium (Pantoprazole Sodium 40 Mg/10 Ml Vial) 40 mg IVPUSH DAILY@0630 [facility] Last Admin: 05/16/24 05:27 Dose: 40 mg Documented By: MOHIT Sodium Chloride (0.9 % Sodium Chloride Flush 3 Ml Syringe) 3 ml IVFLUSH QSHIFT [facility] Last Admin: 05/16/24 07:51 Dose: Not Given Documented By: CODY Non-Admin Reason: IV Running Labs 05/15/24 04:53 05/15/24 04:53 Procedures Date of Service Date of Service: 05/16/24 Progress Note: A&P Assessment and plan (1) SBO (small bowel obstruction): Status: Acute Assessment and Plan: Overall clinical picture suspicious for neoplastic process in the cecum/terminal ileum Markedly elevated CEA levels suggests adenocarcinoma Plan resection tomorrow I reviewed with him the technique of hand assisted laparoscopic right colon resection possible open Explained the risks including but not limited to bleeding, infections, bowel injury, injury to other organs including the urinary tract, staple line leak, as well as the benefits and alternatives Repeat KUB this morning Exam otherwise benign Imaging studies reviewed with the radiologist Time Spent With Patient Time: Total time managing care of this patient today ____ minutes. Quality Stroke Does the patient have a stroke diagnosis?: No VTE Prior VTE?: No VTE Risk Level:: Surgical - low VTE Device Contraindication: N/A - Device Ordered VTE Drug Contraindication: N/A - Med Ordered
[2024-05-16] MEDS: Enoxaparin Sodium 40 MG/0.4 ML SYRINGE SUBCUT (08:36)
--- NOTE | 2024-05-16 14:36 | PM.EVENT ---
Event Note Date of Service: 05/17/24 Event Note: He has no new complaints Passing flatus Denies significant abdominal pain Feels bloated No nausea or vomiting Abdomen is soft and benign KUB from this morning - persistent small bowel dilatation consistent with small bowel obstruction We will proceed with right colon resection tomorrow Likely obstruction at the terminal ileum He understands what to expect I have reviewed the planned procedure with his Anna Marie as well We may need to biopsy the omentum depending on intraop findings Time Spent With Patient Time: Total time managing care of this patient today ____ minutes.
[2024-05-17] VITALS (8 sets, daily range): BP systolic 118–138; BP diastolic 53–77; PULSE 66–84; RESP 12–18; TEMP 36.1–36.9; O2SAT 94–99
[2024-05-17] MEDS: Pantoprazole Sodium 40 MG/10 ML VIAL IVPUSH (05:28)
[2024-05-17] MEDS: 0.9 % Sodium Chloride 1,000 ML 125 ML IVCONT (05:29)
[2024-05-17 08:29] LABS: Anion Gap 13 (12-20); Blood Urea Nitrogen 12 mg/dL (9-16); Calcium 8.6 mg/dL (8.4-10.2); Carbon Dioxide 25 mmol/L (22-29); Chloride 105 mmol/L (96-108); Creatinine Clr Calc Pharmacy 87.3; Estimated Glomerular Filt Rate > 60; Glucose Fasting 65 mg/dL (60-99); Potassium 4.4 mmol/L (3.3-5.1); Sodium 139 mmol/L (135-145)
--- NOTE | 2024-05-17 08:59 | PM.EVENT ---
Event Note Date of Service: 05/17/24 Event Note: Feels well Passing flatus and has BMs Still feels bloated Abdomen is soft and benign Plan for hand assisted laparoscopic right colon resection today in view of suspicious neoplastic process in the cecum/terminal ileum, causing proximal small bowel dilatation markedly elevated CEA He understands the technique of the planned procedure He is aware of the risks, benefits, and alternatives His Neelam was involved with the discussion Time Spent With Patient Time: Total time managing care of this patient today ____ minutes.
--- NOTE | 2024-05-17 09:32 | HO.ANESPROP2 ---
HPI - Anesthesia Eval Consult details Narrative: 59 yo M admitted with SBO presenting for hand-assisted laparoscopic right colon resection PMFSH Active Problems Active Problems: All Active Problems SBO (small bowel obstruction) (Acute) Acute nausea with nonbilious vomiting (Acute) Abdominal pain (Acute) Open fracture of distal phalanx of left index finger (Acute) Past Medical History Medical History (Updated 05/17/24 @ 09:28 by Blanca Lopez, LOLA) Sleep apnea Abnormal colonoscopy Injury of nail bed of finger of left hand Family History Family history of problems with anesthesia: No Surgical History Surgical History (Updated 05/17/24 @ 09:21 by Blanca Lopez RN) H/O sinus surgery History of Problems with Anesthesia: No Social History Social History Household Members: Spouse Housing: House Do you presently have visiting nurse or other home services: No Patient Tobacco Use Status: Never used Tobacco service: No Current occupational status: unemployed 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 Meds Allergies Allergy/AdvReac Type Severity Reaction Status Date / Time No Known Allergies Allergy Verified 05/14/24 17:05 [No Known Allergies*] Active Medications: Current Medications Enoxaparin Sodium (Enoxaparin Sodium 40 Mg/0.4 Ml Syringe) 40 mg SUBCUT Q24H [facility] Last Admin: 05/17/24 07:19 Dose: Not Given Ketorolac Tromethamine (Ketorolac Tromethamine 15 Mg/Ml Vial) 15 mg IVPUSH Q6H PRN PRN Reason: Pain, Moderate(Pain Scale 4-6) Stop: 05/19/24 22:15 Last Admin: 05/15/24 22:30 Dose: 15 mg Morphine Sulfate (Morphine Sulfate 4 Mg/Ml Cartridge) 3 mg IVPUSH Q4H PRN; Protocol PRN Reason: Pain, Severe (Pain Scale 7-10) Ondansetron HCl (Ondansetron Hcl 4 Mg/2 Ml Vial) 4 mg IVPUSH Q8H PRN PRN Reason: Nausea and Vomiting Pantoprazole Sodium (Pantoprazole Sodium 40 Mg/10 Ml Vial) 40 mg IVPUSH DAILY@0630 [facility] Last Admin: 05/17/24 05:28 Dose: 40 mg Sodium Chloride (0.9 % Sodium Chloride Flush 3 Ml Syringe) 3 ml IVFLUSH QSHIFT [facility] Last Admin: 05/17/24 07:11 Dose: Not Given Home Medications ?Medication ?Instructions ?Recorded ?Confirmed ?Last Taken ?Type aripiprazole 2 mg tablet 2 mg PO BEDTIME 05/14/24 05/14/24 05/13/24 History azelastine 137 mcg (0.1 %) nasal 2 spray intranasal BID 05/14/24 05/14/24 Unknown History spray folic acid 1 mg tablet 1 mg PO DAILY 05/14/24 05/14/24 Unknown History hydroxyzine pamoate 50 mg capsule 100 mg PO BEDTIME PRN Anxiety 05/14/24 05/14/24 Unknown History omeprazole 20 mg capsule,delayed 20 mg PO BID@0630,1630 05/14/24 05/14/24 05/14/24 History release polyethylene glycol 3350 17 17 g PO DAILY PRN constipation 05/14/24 05/14/24 Unknown History gram/dose oral powder (Gavilax) Exam Exam Date and Time: 05/17/24 0919 Height,Weight and Vital Signs: Height 5 ft 8 in Weight 73.5 kg Last Vital Signs Temp 97.7 F 05/17/24 07:49 Pulse 67 05/17/24 07:49 Resp 16 05/17/24 07:49 BP 138/77 05/17/24 07:49 Pulse Ox 97 05/17/24 07:49 O2 Del Method Room Air 05/17/24 07:49 Pertinent Lab Results Pertinent Lab Results: Laboratory Tests 05/14/24 05/15/24 05/16/24 17:12 04:53 12:27 WBC 12.2 H 9.4 RBC 6.32 H 5.73 Hgb 17.8 15.7 Hct 52.0 47.8 MCV 82.3 83.4 MCH 28.2 27.4 MCHC 34.2 32.8 RDW 12.6 12.8 Plt Count 272 D 245 MPV 10.1 10.5 Immature Gran % (Auto) 0.3 0.2 Neut % (Auto) 86.2 H 76.2 H Lymph % (Auto) 7.7 L 10.5 L Marinette % (Auto) 5.5 12.4 H Eos % (Auto) 0.1 0.2 Baso % (Auto) 0.2 0.5 Lymph # (Auto) 0.9 L 1.0 L [place] # (Auto) 0.7 1.2 Eos # (Auto) 0.0 0.0 Baso # (Auto) 0.0 0.1 Abs Immat Gran (auto) 0.04 H 0.02 Absolute Neuts (auto) 10.5 H 7.1 Absolute Nucleated RBC 0.000 0.000 Nucleated RBC % (auto) 0.0 0.0 Hold Purple Top Sodium 138 139 Potassium 4.5 4.9 Chloride 97 99 Carbon Dioxide 29 31 H Anion Gap 17 14 BUN 16 17 H Creatinine 1.15 1.15 Estim Creat Clear Calc 66.0 66.0 Estimated GFR > 60 > 60 Random Glucose 119 H 103 Fasting Glucose Calcium 10.9 H D 9.6 D Magnesium 2.2 Total Bilirubin 0.9 AST 33 ALT 25 Alkaline Phosphatase 112 Total Protein 9.8 H Albumin 5.0 Lipase 31 Carcinoembryonic Ag 149.40 Blood Type A Positive Antibody Screen NEGATIVE 05/17/24 07:34 WBC RBC Hgb Hct MCV MCH MCHC RDW Plt Count MPV Immature Gran % (Auto) Neut % (Auto) Lymph % (Auto) Marin[place] % (Auto) Eos % (Auto) Baso % (Auto) Lymph # (Auto) [place] # (Auto) Eos # (Auto) Baso # (Auto) Abs Immat Gran (auto) Absolute Neuts (auto) Absolute Nucleated RBC Nucleated RBC % (auto) Hold Purple Top SEE NOTE Sodium 139 Potassium 4.4 Chloride 105 Carbon Dioxide 25 Anion Gap 13 BUN 12 Creatinine 0.87 Estim Creat Clear Calc 87.3 Estimated GFR > 60 Random Glucose Fasting Glucose 65 Calcium 8.6 D Magnesium Total Bilirubin AST ALT Alkaline Phosphatase Total Protein Albumin Lipase Carcinoembryonic Ag Blood Type Antibody Screen Airway Mallampati Class: II TM Dist: >3cm Neck ROM: Full Loose/Missing/Broken Teeth: No (patient denies any loose or broken teeth) Heart: S1S2 Lungs: CTAB Assessment and Plan Assessment Anesthesia Assessment: Anesthesia Plan Discussed and Chart Reviewed Final Anesthetic Review Family History of Problems with Anesthesia: No History of Problems with Anesthesia: No NPO: Yes ASA Class: II Final Preanesthetic Review: No Changes in Pt Med Stat, Meds/Allgs Chart Reviewed, Consent Obtained/Reviewed and Anes Risks/Benef Reviewed Patient Risk: Low Procedure Risk: Intermediate Anesthetic Plan Anesthetic Plan: GA, Regional Block (bilateral transversus plane block and bilateral rectus sheath block) and Agree w/ Assess. and Plan Disposition: Standard PACU
--- NOTE | 2024-05-17 09:58 | PC.NURSE ---
20g left wrist removed. leaking.
[2024-05-17] MEDS: cefoTEtan disodium 2 GM VIAL IVPUSH (10:10)
--- NOTE | 2024-05-17 12:25 | P.OP_ITS ---
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 His CEA level was markedly elevated at 140. He understood the technique of planned hand assisted laparoscopic right colon resection what he understood the risks benefits and alternatives. He was brought to the operating room. He was placed supine under general anesthesia via endotracheal tube. A Phillips catheter was inserted. The abdomen was prepped and draped in the usual sterile fashion. A TAP block had been done by the anesthesiologist. The patient received Cefotan preoperatively I made a short incision at the area of the umbilicus with a blade 15. This was carried down through the full-thickness of the skin subcutaneous fat. The fascia was incised. The peritoneum was entered. Through this incision the Vasiliy wound retractor was introduced. A GelPort was attached. We insufflated through a port to a pressure of 15 mm Hg. We used a 10 mm 30 degree scope. With laparoscopic visualization I inserted a 5/12 mm port in the epigastric area and a 5 mm port in the left upper quadrant. The patient was placed in head down left side down position. I inserted my hand through the GelPort. I reflected the bowel loops away from the right side. I was able to identify the right colon. The cecum was markedly indurated, adherent to the sidewall as well as the retroperitoneum. The entire mesentery of the proximal right colon as well as the distal ileum were created and also markedly adherent to the retroperitoneum. Examination of the peritoneal cavity revealed extensive peritoneal studding as well as studying in the mesentery of the right colon at the distal small bowel. He was consistent with carcinomatosis I mobilize the right colon by dividing the attachments of the right line of the Toldt with the LigaSure. However once we reached the cecum, we could not identify any planes because of the severe induration. We divided a lot of these adhesions to the peritoneal sidewall hemoperitoneum with the LigaSure, although this appeared to be extensive extension of the tumor radially. We continued with the dissection to try to separate the cecum of the surrounding sidewall and the retroperitoneum. We are able to achieve some mobilization except at the retroperitoneal side. At some point, it appeared that there was note of matted bowel loops surrounding this as well we had difficulty identifying planes as well as the rotation of the bowel loops. Also the sigmoid appeared to be markedly adherent at 1 point but we are able to separate this but there was note of induration on the sigmoid as well At this point I decided to extend the incision he had better visualization. We attempted to mobilize more of the cecum from the retroperitoneum by carefully dividing more of the attachments and indurated tissue using fine dissection with the right angle clamp as well as electrocautery. However, there was more induration in the retroperitoneal side. The mesentery of the distal ileum was also markedly foreshortened. Further examination of the sigmoid appeared that there was also an indurated area consistent with involvement with the tumor. At this point, we decided therefore that it would be best for the patient to undergo a diverting loop ileostomy in view of the extensive involvement of the neoplastic process in the cecum, terminal ileum as well as the sigmoid. Also, there was note of peritoneal studding. We biopsied well of the peritoneal deposits. One of these was sent for immediate gross. The pathologist at later called to state that this was suspicious We then identified and followed the terminal ileum and we chose a segment that appeared to be realize enough and not adherent to the tumor that may reach the abdominal wall. I created a mesenteric window and passed a Sapphire drain through this. We created our stoma opening in the right lower quadrant by excising a discoid piece of Seen and dissecting through the subcutaneous fat with electrocautery incising the fascia. We did muscle-splitting and divided the posterior fascia and dilated this to 3-0 my fingers. We then pulled out the he was drained through the opening. We replaced the Sapphire drain with a stoma bridge We then examined the rest of the small bowel loops and the did not appear that there were any injuries or any other pathology except for the extensive peritoneal studding I irrigated and suctioned the fluid from the right gutter We then proceeded to close the fascia with a running Maxon 1 stitch. The fascial closure was laparoscopically examined using the epigastric port. There were no bowel loops by the sutures I then proceeded to close the skin incisions with herman after irrigation Dressings were applied. Stoma appliance was position and the procedure was co mpleted The patient tolerated the procedure well. There were no immediate complications. Initial final counts of sponges and instruments were correct. Estimated blood loss was about 100 cc. The patient was extubated without difficulty and transferred to the recovery room with stable vital signs
--- NOTE | 2024-05-17 15:59 | PM.EVENT ---
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
[2024-05-17] MEDS: Acetaminophen 1,000 MG/100 ML PIGGYBACK 400 MG IV ×2 (16:03→22:46)
[2024-05-17] MEDS: 0.9 % Sodium Chloride 1,000 ML 100 ML IVCONT (16:04)
[2024-05-17] MEDS: Omeprazole 20 MG CAPSULE.DR PO (16:04)
[2024-05-17] MEDS: 0.9 % Sodium Chloride Flush 3 ML SYRINGE IVFLUSH (16:04)
--- NOTE | 2024-05-17 16:15 | MHC.CM.PN ---
PT NOT MEDICALLY CLEARED, DCP HOME NO SERVICES
[2024-05-17] MEDS: Ketorolac Tromethamine 15 MG/ML VIAL IVPUSH (20:16)
[2024-05-18] VITALS (7 sets, daily range): BP systolic 137–152; BP diastolic 77–83; PULSE 62–91; RESP 16–18; TEMP 36.1–37; O2SAT 96–99
[2024-05-18] MEDS: 0.9 % Sodium Chloride 1,000 ML 100 ML IVCONT ×3 (01:35→21:49)
[2024-05-18] MEDS: Omeprazole 20 MG CAPSULE.DR PO ×2 (05:31→15:49)
[2024-05-18 07:25] LABS: MANUAL DIFF FLAG NO
[2024-05-18 08:07] LABS: Basophils Percent Auto 0.1 % (0-2); Hematocrit 35.8 % (42.0-52.0); Imm Gran Abs Auto 0.05 X10*3/uL (0.00-0.03); Imm Gran Pct Auto 0.5 % (0.0-0.4); Lymphocytes Absolute Auto 0.6 X10*3/uL (1.2-4.9); Lymphocytes Percent Auto 6.4 % (20-40); Mean Corpuscular HGB Conc 33.8 g/dl (31.0-36.0); Mean Corpuscular Hemoglobin 28.1 pg (27.0-33.0); Mean Corpuscular Volume 83.3 fL (80.0-98.0); Mean Platelet Volume 10.7 fL (9.4-12.4); Monocytes Absolute Auto 0.9 X10*3/uL (0.1-1.2); Platelet Count 187 X10*3/uL (160-400); Red Cell Distribution Width 12.5 % (11.0-16.0); White Blood Count 9.6 X10*3/uL (4.8-10.8)
[2024-05-18 08:13] LABS: Hemoglobin 12.1 g/dl (14.0-18.0)
--- NOTE | 2024-05-18 08:39 | P.PNGS_ITS ---
Subjective Subjective Date of Service: 05/18/24 Interval history: Reports abdominal pain in the epigastrium. Has passed some flatus this morning. Tolerating sips of clear liquids. Ostomy with some thin bloody fluid only. Physical Exam 2 Vital Signs: Vital Signs: Last Vital Signs Temp 97.5 F 05/18/24 07:45 Pulse 68 05/18/24 07:45 Resp 16 05/18/24 07:45 BP 140/79 H 05/18/24 07:45 Pulse Ox 97 05/18/24 07:45 O2 Del Method Room Air 05/18/24 07:45 O2 Flow Rate 6 05/17/24 12:45 BMI result Body Mass Index 24.6 Const: General: no acute distress Nutritional Appearance: well nourished Orientation/consciousness: patient oriented x3 Resp: Effort & Inspection: normal respiratory effort, no audible wheezes, no cough and no respiratory distress GI: Other: Lower midline incision dressings clean and intact. Ostomy pink and patent with thin bloody fluid. No flatus identified. Trocar incisions are clean. Skin: Other: Warm, dry, no rash Neuro: General: patient oriented x3 Extrem: Other: No peripheral edema Objective Data Active Medications Aripiprazole (Aripiprazole 2 Mg Tablet) 2 mg PO BEDTIME COUNT INCLUDES THE [facility] Last Admin: 05/17/24 20:13 Dose: Not Given Documented By: HARLAN Non-Admin Reason: Patient Refused Calcium Carbonate (Calcium Carbonate 750 Mg Tab.Chew) 750 mg PO Q6H PRN PRN Reason: Heartburn Enoxaparin Sodium (Enoxaparin Sodium 40 Mg/0.4 Ml Syringe) 40 mg SUBCUT Q24H COUNT INCLUDES THE [facility] Last Admin: 05/17/24 07:19 Dose: Not Given Documented By: CODY Non-Admin Reason: PreOp Hydromorphone HCl (Hydromorphone Hcl 0.5 Mg/0.5 Ml Syringe) 0.5 mg IVPUSH Q3H PRN; Protocol PRN Reason: Pain, Severe (Pain Scale 7-10) Hydroxyzine HCl (Hydroxyzine Hcl 50 Mg Tablet) 100 mg PO BEDTIME PRN PRN Reason: Anxiety Acetaminophen (Ofirmev) 1,000 mg in 100 mls @ 400 mls/hr IV Q6H COUNT INCLUDES THE [facility] Last Admin: 05/18/24 04:13 Dose: Not Given Documented By: HARLAN Non-Admin Reason: Patient Refused Sodium Chloride (Ns) 1,000 mls @ 100 mls/hr IVCONT .Q10H COUNT INCLUDES THE [facility] Last Admin: 05/18/24 01:35 Dose: 100 mls/hr Documented By: HARLAN Ketorolac Tromethamine (Ketorolac Tromethamine 15 Mg/Ml Vial) 15 mg IVPUSH Q6H PRN PRN Reason: Pain, Moderate(Pain Scale 4-6) Stop: 05/19/24 22:15 Last Admin: 05/17/24 20:16 Dose: 15 mg Documented By: HARLAN Melatonin (Melatonin 3 Mg Tablet) 6 mg PO BEDTIME PRN PRN Reason: Insomnia Omeprazole (Omeprazole 20 Mg Capsule.Dr) 20 mg PO BID@0630,1630 COUNT [facility]CLUD[facility] Last Admin: 05/18/24 05:31 Dose: 20 mg Documented By: HARLAN Ondansetron HCl (Ondansetron Hcl 4 Mg/2 Ml Vial) 4 mg IVPUSH Q8H PRN PRN Reason: Nausea and Vomiting Oxycodone HCl (Oxycodone Hcl Immed Release 5 Mg Tablet) 5 mg PO Q4H PRN PRN Reason: Pain, Moderate(Pain Scale 4-6) Sodium Chloride (0.9 % Sodium Chloride Flush 3 Ml Syringe) 3 ml IVFLUSH QSHIFT COUNT [facility]CLUD[facility] Last Admin: 05/18/24 01:02 Dose: Not Given Documented By: HARLAN Non-Admin Reason: IV Running Labs 05/18/24 06:53 05/17/24 07:34 Labs: Laboratory Results - last 24 hr 05/18/24 06:53 MCV 83.3 MCH 28.1 MCHC 33.8 RDW 12.5 Plt Count 187 MPV 10.7 Immature Gran % (Auto) 0.5 H Neut % (Auto) 84.0 H Lymph % (Auto) 6.4 L [place] % (Auto) 9.0 Eos % (Auto) 0.0 Baso % (Auto) 0.1 Lymph # (Auto) 0.6 L [place] # (Auto) 0.9 Eos # (Auto) 0.0 Baso # (Auto) 0.0 Abs Immat Gran (auto) 0.05 H Absolute Neuts (auto) 8.0 Absolute Nucleated RBC 0.000 Nucleated RBC % (auto) 0.0 Procedures Date of Service Date of Service: 05/18/24 Progress Note: A&P Assessment and plan (1) SBO (small bowel obstruction): Status: Acute (2) Abdominal pain: Status: Acute Plan POD #1 s/p Hand assisted laparoscopic extensive lysis of adhesions, biopsies of peritoneal studding, diverting loop ileostomy for 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 I reviewed the findings at operation once again with the patient today and discussed the need for ileostomy. Patient expressed understanding. He will continue with a clear liquid diet today. Phillips catheter will be removed in I encouraged ambulation and incentive spirometry. Await the return of bowel function. Time Spent With Patient Time: Total time managing care of this patient today ____ minutes. Quality Stroke Does the patient have a stroke diagnosis?: No VTE Prior VTE?: No VTE Risk Level:: Surgical - low VTE Device Contraindication: N/A - Device Ordered VTE Drug Contraindication: N/A - Med Ordered
[2024-05-18] MEDS: 0.9 % Sodium Chloride Flush 3 ML SYRINGE IVFLUSH ×2 (08:41→15:49)
[2024-05-18] MEDS: Enoxaparin Sodium 40 MG/0.4 ML SYRINGE SUBCUT (08:45)
[2024-05-18] MEDS: oxyCODONE HCl Immed Release 5 MG TABLET PO (08:50)
[2024-05-18 09:23] LABS: Anion Gap 14 (12-20); Blood Urea Nitrogen 14 mg/dL (9-16); Calcium 9.7 mg/dL (8.4-10.2); Carbon Dioxide 25 mmol/L (22-29); Chloride 102 mmol/L (96-108); Creatinine Clr Calc Pharmacy 77.5; Estimated Glomerular Filt Rate > 60; Glucose Fasting 115 mg/dL (60-99); Potassium 4.5 mmol/L (3.3-5.1); Sodium 136 mmol/L (135-145)
[2024-05-18] MEDS: Acetaminophen 1,000 MG/100 ML PIGGYBACK 400 MG IV ×3 (10:25→22:01)
[2024-05-18] MEDS: ondansetron HCL 4 MG/2 ML VIAL IVPUSH ×2 (10:34→18:21)
[2024-05-18] MEDS: Ketorolac Tromethamine 15 MG/ML VIAL IVPUSH (10:37)
--- NOTE | 2024-05-18 15:04 | HO.POSTANES ---
Post Anesthesia Evaluation Post Anesthesia Evaluation Date of Service: 05/18/24 Vital Signs: Vital Signs Temp Pulse Resp BP Pulse Ox O2 Del Method 05/18/24 12:00 97.0 F 73 16 137/77 96 Room Air 05/18/24 07:45 97.5 F 68 16 140/79 H 97 Room Air 05/18/24 04:00 98.1 F 91 18 152/80 H 98 Room Air Anesthesia: General Endotracheal-GETA Mental Status: Awake Pain Control: Satisfactory (incisional pain) Nausea/Vomiting: None Hydration: Adequate Anesthesia-Related Issues: No Anes. Related Issues
[2024-05-18] MEDS: hydrOXYzine HCL 50 MG TABLET 100 MG PO (22:01)
[2024-05-19] VITALS (7 sets, daily range): BP systolic 125–160; BP diastolic 65–88; PULSE 63–74; RESP 16–18; TEMP 36–36.7; O2SAT 96–100
[2024-05-19] MEDS: Omeprazole 20 MG CAPSULE.DR PO ×2 (05:36→15:50)
[2024-05-19] MEDS: 0.9 % Sodium Chloride Flush 3 ML SYRINGE IVFLUSH ×2 (07:23→15:05)
[2024-05-19] MEDS: Enoxaparin Sodium 40 MG/0.4 ML SYRINGE SUBCUT (07:23)
[2024-05-19] MEDS: 0.9 % Sodium Chloride 1,000 ML 100 ML IVCONT (07:37)
[2024-05-19] MEDS: Acetaminophen 1,000 MG/100 ML PIGGYBACK 400 MG IV ×3 (07:37→20:30)
[2024-05-19] MEDS: Calcium Carbonate 750 MG TAB.CHEW PO (07:52)
[2024-05-19] MEDS: 0.9 % Sodium Chloride 1,000 ML 50 ML IVCONT (09:05)
--- NOTE | 2024-05-19 10:12 | PM.PNGS ---
Subjective Subjective Date of Service: 05/19/24 Interval history: Patient feels improved with less abdominal pain. Ostomy is producing liquid stool and gas. Physical Exam Vital Signs: Vital Signs: Last Vital Signs Temp 97.6 F 05/19/24 07:53 Pulse 70 05/19/24 07:53 Resp 18 05/19/24 07:53 BP 142/80 H 05/19/24 07:53 Pulse Ox 97 05/19/24 07:53 O2 Del Method Room Air 05/19/24 07:53 O2 Flow Rate 6 05/17/24 12:45 BMI result Body Mass Index 24.6 Const: General: no acute distress Nutritional Appearance: well nourished Orientation/consciousness: patient oriented x3 Resp: Effort & Inspection: normal respiratory effort GI: Other: Abdomen is soft and nondistended. Incisions are clean without redness or discharge. Dressings were removed. Ostomy is pink and patent, producing liquid/bilious fluid Skin: Other: Warm, dry, no rash Neuro: General: patient oriented x3 Objective Data Active Medications Aripiprazole (Aripiprazole 2 Mg Tablet) 2 mg PO BEDTIME [facility] Last Admin: 05/18/24 21:02 Dose: Not Given Documented By: HARLAN Non-Admin Reason: Patient Refused Calcium Carbonate (Calcium Carbonate 750 Mg Tab.Chew) 750 mg PO Q6H PRN PRN Reason: Heartburn Last Admin: 05/19/24 07:52 Dose: 750 mg Documented By: LUCILA Enoxaparin Sodium (Enoxaparin Sodium 40 Mg/0.4 Ml Syringe) 40 mg SUBCUT Q24H [facility] Last Admin: 05/19/24 07:23 Dose: 40 mg Documented By: LUCILA Hydromorphone HCl (Hydromorphone Hcl 0.5 Mg/0.5 Ml Syringe) 0.5 mg IVPUSH Q3H PRN; Protocol PRN Reason: Pain, Severe (Pain Scale 7-10) Hydroxyzine HCl (Hydroxyzine Hcl 50 Mg Tablet) 100 mg PO BEDTIME PRN PRN Reason: Anxiety Last Admin: 05/18/24 22:01 Dose: 100 mg Documented By: HARLAN Acetaminophen (Ofirmev) 1,000 mg in 100 mls @ 400 mls/hr IV Q6H [facility] Last Infusion: 05/19/24 07:52 Dose: Infused Documented By: LUCILA Sodium Chloride (Ns) 1,000 mls @ 50 mls/hr IVCONT .Q20H [facility] Last Admin: 05/19/24 09:05 Dose: 50 mls/hr Documented By: LUCILA Ketorolac Tromethamine (Ketorolac Tromethamine 15 Mg/Ml Vial) 15 mg IVPUSH Q6H PRN PRN Reason: Pain, Moderate(Pain Scale 4-6) Stop: 05/19/24 22:15 Last Admin: 05/18/24 10:37 Dose: 15 mg Documented By: LUCILA Melatonin (Melatonin 3 Mg Tablet) 6 mg PO BEDTIME PRN PRN Reason: Insomnia Omeprazole (Omeprazole 20 Mg Capsule.Dr) 20 mg PO BID@0630,1630 [facility] Last Admin: 05/19/24 05:36 Dose: 20 mg Documented By: CASTANUP Ondansetron HCl (Ondansetron Hcl 4 Mg/2 Ml Vial) 4 mg IVPUSH Q8H PRN PRN Reason: Nausea and Vomiting Last Admin: 05/18/24 18:21 Dose: 4 mg Documented By: LUCILA Oxycodone HCl (Oxycodone Hcl Immed Release 5 Mg Tablet) 5 mg PO Q4H PRN PRN Reason: Pain, Moderate(Pain Scale 4-6) Last Admin: 05/18/24 08:50 Dose: 5 mg Documented By: LUCILA Sodium Chloride (0.9 % Sodium Chloride Flush 3 Ml Syringe) 3 ml IVFLUSH QSHIFT [facility] Last Admin: 05/19/24 07:23 Dose: 3 ml Documented By: LUCILA Labs 05/18/24 06:53 05/18/24 08:23 Procedures Date of Service Date of Service: 05/19/24 Progress Note: A&P Assessment and plan (1) SBO (small bowel obstruction): Status: Acute (2) Abdominal pain: Status: Acute Plan POD #2 s/p Hand assisted laparoscopic extensive lysis of adhesions, biopsies of peritoneal studding, diverting loop ileostomy for 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 Patient was feeling much improved this morning with less abdominal pain. His ostomy is producing bilious fluid. I will advance his diet to regular soft. He was encouraged to ambulate in the hallways. Time Spent With Patient Time: Total time managing care of this patient today ____ minutes. Quality Stroke Does the patient have a stroke diagnosis?: No VTE Prior VTE?: No VTE Risk Level:: Surgical - low VTE Device Contraindication: N/A - Device Ordered VTE Drug Contraindication: N/A - Med Ordered
[2024-05-20 03:20] VITALS: BP 156/75; PULSE 57; RESP 16; TEMP 36.2; O2SAT 98
[2024-05-20] MEDS: Acetaminophen 1,000 MG/100 ML PIGGYBACK 400 MG IV ×4 (03:23→22:46)
[2024-05-20] MEDS: Omeprazole 20 MG CAPSULE.DR PO ×2 (05:08→16:40)
[2024-05-20 07:13] VITALS: BP 148/80; PULSE 62; RESP 16; TEMP 36.2; O2SAT 98
--- NOTE | 2024-05-20 07:59 | P.PNGS_ITS ---
Subjective Subjective Date of Service: 05/20/24 Interval history: Tolerating diet Stoma functioning well He says he has been ambulating Good pain control Physical Exam 2 Vital Signs: Vital Signs: Last Vital Signs Temp 97.2 F 05/20/24 07:13 Pulse 62 05/20/24 07:13 Resp 16 05/20/24 07:13 BP 148/80 H 05/20/24 07:13 Pulse Ox 98 05/20/24 07:13 O2 Del Method Room Air 05/20/24 07:13 O2 Flow Rate 6 05/17/24 12:45 BMI result Body Mass Index 24.6 Const: General: comfortable and no acute distress Resp: Effort & Inspection: normal respiratory effort Cardio: Rate: regular rate GI: Other: Soft, incision clean, stoma with good output, stoma bridge out Objective Data Active Medications Aripiprazole (Aripiprazole 2 Mg Tablet) 2 mg PO BEDTIME [facility] Last Admin: 05/19/24 20:30 Dose: Not Given Documented By: NARAYAN Non-Admin Reason: Patient Refused Calcium Carbonate (Calcium Carbonate 750 Mg Tab.Chew) 750 mg PO Q6H PRN PRN Reason: Heartburn Last Admin: 05/19/24 07:52 Dose: 750 mg Documented By: LUCILA Enoxaparin Sodium (Enoxaparin Sodium 40 Mg/0.4 Ml Syringe) 40 mg SUBCUT Q24H [facility] Last Admin: 05/19/24 07:23 Dose: 40 mg Documented By: LUCILA Hydromorphone HCl (Hydromorphone Hcl 0.5 Mg/0.5 Ml Syringe) 0.5 mg IVPUSH Q3H PRN; Protocol PRN Reason: Pain, Severe (Pain Scale 7-10) Hydroxyzine HCl (Hydroxyzine Hcl 50 Mg Tablet) 100 mg PO BEDTIME PRN PRN Reason: Anxiety Last Admin: 05/18/24 22:01 Dose: 100 mg Documented By: CASTILM Acetaminophen (Ofirmev) 1,000 mg in 100 mls @ 400 mls/hr IV Q6H [facility] Last Infusion: 05/20/24 03:48 Dose: Infused Documented By: NARAYAN Melatonin (Melatonin 3 Mg Tablet) 6 mg PO BEDTIME PRN PRN Reason: Insomnia Omeprazole (Omeprazole 20 Mg Capsule.) 20 mg PO BID@0630,1630 [facility] Last Admin: 05/20/24 05:08 Dose: 20 mg Documented By: NARAYAN Ondansetron HCl (Ondansetron Hcl 4 Mg/2 Ml Vial) 4 mg IVPUSH Q8H PRN PRN Reason: Nausea and Vomiting Last Admin: 05/18/24 18:21 Dose: 4 mg Documented By: LUCILA Oxycodone HCl (Oxycodone Hcl Immed Release 5 Mg Tablet) 5 mg PO Q4H PRN PRN Reason: Pain, Moderate(Pain Scale 4-6) Last Admin: 05/18/24 08:50 Dose: 5 mg Documented By: LUCILA Sodium Chloride (0.9 % Sodium Chloride Flush 3 Ml Syringe) 3 ml IVFLUSH QSHIFT [facility] Last Admin: 05/19/24 22:14 Dose: Not Given Documented By: NARAYAN Non-Admin Reason: IV Running Labs 05/18/24 06:53 05/18/24 08:23 Procedures Date of Service Date of Service: 05/20/24 Progress Note: A&P Assessment and plan (1) Cecum mass: Status: Acute Assessment and Plan: With carcinomatosis Loop ileostomy done Multiple intraperitoneal studding, mass seems to involve the sigmoid as well Await path report for biopsies 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 Quality Stroke Does the patient have a stroke diagnosis?: No VTE Prior VTE?: No VTE Risk Level:: Surgical - low VTE Device Contraindication: N/A - Device Ordered VTE Drug Contraindication: N/A - Med Ordered
[2024-05-20] MEDS: Enoxaparin Sodium 40 MG/0.4 ML SYRINGE SUBCUT (09:04)
[2024-05-20] MEDS: 0.9 % Sodium Chloride Flush 3 ML SYRINGE IVFLUSH ×2 (09:08→16:41)
--- NOTE | 2024-05-20 09:13 | PM.HEMONCCN ---
Subjective - Subjective Primary Care Provider: Darrius Rangel III, MD HPI - Consult Narrative Narrative: Lance Pena is a 59 year old male [facility] Medical History: Medical History (Last Updated 05/20/24 @ 08:01 by Dion Sequeira MD) Abnormal colonoscopy Cecum mass Injury of nail bed of finger of left hand Sleep apnea Surgical History: Surgical History (Last Updated 05/17/24 @ 09:21 by Blanca Lopez, RN) H/O sinus surgery Social History: Social History (Last Reviewed 05/15/24 @ 10:03 by My Acevedo RN) Living Situation History: Household Members: Spouse Housing: House Do you presently have visiting nurse or other home services: No Tobacco History: Patient Tobacco Use Status: Never used Tobacco Occupation Assessmet: service: No Current occupational status: unemployed 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 Home Medications and Allergies Current Medications: Current Medications Aripiprazole (Aripiprazole 2 Mg Tablet) 2 mg PO BEDTIME [facility] Last Admin: 05/19/24 20:30 Dose: Not Given Calcium Carbonate (Calcium Carbonate 750 Mg Tab.Chew) 750 mg PO Q6H PRN PRN Reason: Heartburn Last Admin: 05/19/24 07:52 Dose: 750 mg Enoxaparin Sodium (Enoxaparin Sodium 40 Mg/0.4 Ml Syringe) 40 mg SUBCUT Q24H [facility] Last Admin: 05/20/24 09:04 Dose: 40 mg Hydromorphone HCl (Hydromorphone Hcl 0.5 Mg/0.5 Ml Syringe) 0.5 mg IVPUSH Q3H PRN; Protocol PRN Reason: Pain, Severe (Pain Scale 7-10) Hydroxyzine HCl (Hydroxyzine Hcl 50 Mg Tablet) 100 mg PO BEDTIME PRN PRN Reason: Anxiety Last Admin: 05/18/24 22:01 Dose: 100 mg Acetaminophen (Ofirmev) 1,000 mg in 100 mls @ 400 mls/hr IV Q6H [facility] Last Admin: 05/20/24 09:04 Dose: 400 mls/hr Melatonin (Melatonin 3 Mg Tablet) 6 mg PO BEDTIME PRN PRN Reason: Insomnia Omeprazole (Omeprazole 20 Mg Capsule.Dr) 20 mg PO BID@0630,1630 [facility] Last Admin: 05/20/24 05:08 Dose: 20 mg Ondansetron HCl (Ondansetron Hcl 4 Mg/2 Ml Vial) 4 mg IVPUSH Q8H PRN PRN Reason: Nausea and Vomiting Last Admin: 05/18/24 18:21 Dose: 4 mg Oxycodone HCl (Oxycodone Hcl Immed Release 5 Mg Tablet) 5 mg PO Q4H PRN PRN Reason: Pain, Moderate(Pain Scale 4-6) Last Admin: 05/18/24 08:50 Dose: 5 mg Sodium Chloride (0.9 % Sodium Chloride Flush 3 Ml Syringe) 3 ml IVFLUSH QSILFT [facility] Last Admin: 05/20/24 09:08 Dose: 3 ml Home Medications ?Medication ?Instructions ?Recorded ?Confirmed ?Type aripiprazole 2 mg tablet 2 mg PO BEDTIME 05/14/24 05/14/24 History azelastine 137 mcg (0.1 %) nasal 2 spray intranasal BID 05/14/24 05/14/24 History spray folic acid 1 mg tablet 1 mg PO DAILY 05/14/24 05/14/24 History hydroxyzine pamoate 50 mg capsule 100 mg PO BEDTIME PRN Anxiety 05/14/24 05/14/24 History omeprazole 20 mg capsule,delayed 20 mg PO BID@0630,1630 05/14/24 05/14/24 History release polyethylene glycol 3350 17 17 g PO DAILY PRN constipation 05/14/24 05/14/24 History gram/dose oral powder (Gavilax) Allergies Allergy/AdvReac Type Severity Reaction Status Date / Time No Known Allergies Allergy Verified 05/14/24 17:05 [No Known Allergies*] Physical Exam Vital signs: Vital Signs Temp 97.2 F 05/20/24 07:13 Pulse 62 05/20/24 07:13 Resp 16 05/20/24 07:13 BP 148/80 H 05/20/24 07:13 Pulse Ox 98 05/20/24 07:13 O2 Del Method Room Air 05/20/24 07:13 O2 Flow Rate 6 05/17/24 12:45 Intake & Output 05/19/24 05/20/24 05/20/24 18:59 06:59 18:59 Intake Total 1326.667 / 2766.667 1440 / 2766.667 Output Total 1400 / 3050 1650 / 3050 400 / 400 Balance -73.333 / -283.333 -210 / -283.333 -400 / -400 Urine Output (Average ml/kg/hr) 1.13 1.19 Intake: Intake, Oral Amount 240 / 240 Intake, IV Amount 1326.667 / 2526.667 1200 / 2526.667 Acetaminophen 1,000 mg In 100 200 / 400 200 / 400 ml @ 400 mls/hr IV Q6H [facility] Rx#: [id number] 0.9 % Sodium Chloride 1,000 ml 1126.667 / 2126.667 1000 / 2126.667 @ 50 mls/hr IVCONT .Q20H [facility] Rx #:[id number] Output: Output, Urine Amount 1000 / 2050 1050 / 2050 Output, Stool Amount 400 / 1000 600 / 1000 400 / 400 Other: Urine Urinal Urinal Urine Color Yellow Yellow Last Bowel Movement 05/19/24 05/20/24 05/20/24 Stool Ostomy Ostomy Ostomy Stool Amount Small Moderate Large Stool Color Green Brown Brown Stool Consistency Liquid Liquid Liquid Weight 73.5 kg Hem/Onc Consult Result - Labs CBC & Chem 7: 05/18/24 06:53 05/18/24 08:23 Assessment and Plan Patient Active problem list reviewed?: Yes
--- NOTE | 2024-05-20 09:18 | P.CNHO_ITS ---
Subjective - Subjective Chief complaint: Consult for: Peritoneal carcinomatosis. Patient: new to practice Consult date: 05/20/24 Requesting Physician: Kourtney Sequeira. Primary Care Provider: Darrius Rangel III, MD Family Provider: Darrius Rangel. Medical Summary: DIAGNOSIS: Peritoneal carcinomatosis. Strategic Planning Specialist Utilized?: No - Slovak Speaking HPI - Consult Narrative Reason for consult: Consult for: Peritoneal carcinomatosis. Narrative: Lance Pena is a 59 year old gentleman admitted on 05/14 with abdominal pain nausea and vomiting. PMH of anxiety. There is no prior abdominal surgeries. He noted waking up on 05/14, with mid to upper abdominal pain and n/v all day. He had two soft BMs but then noted no real flatus. He could not keep anything down. He denies fevers. No sick contacts. He has never had this before. No recent travel. Stated normal colonoscopy at [place] about 5 years ago and is due for another in June CAT scan of the abdomen pelvis revealed: High-grade acute distal small-bowel obstruction with inflammatory 5 cm soft tissue mass in the region of the cecum with inflammatory thickening of the wall of the terminal ileum. Differential diagnosis would favor cecal neoplasm, appendicitis. Additional soft tissue enhancing 3.6 cm inflammatory mass is located in the mesentery image 33 series 2 consistent with omental metastasis. 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 Today, He says he has been ambulating. Tolerating diet Stoma functioning well Good pain control. PAST MEDICAL HISTORY: 1.Anxiety. Review of Systems - Constitutional Reports no additional constitutional complaints, Reports lack of energy, Reports malaise, Reports poor appetite, Reports weight loss - Eyes Reports no additional eye complaints - ENT Reports no additional ear, nose, mouth, and throat complaints - Cardiovascular Reports no additional cardiovascular complaints - Respiratory Reports no additional respiratory complaints - Gastrointestinal Reports no additional gastrointestinal complaints, Reports abdominal pain - Genitourinary Genitourinary: Reports no additional male genitourinary complaints - Musculoskeletal Reports no additional musculoskeletal complaints - Integumentary/Breasts Skin/Breast: Reports no additional skin complaints - Neurologic Reports no additional neurologic complaints - Psychiatric Reports no additional psychiatric complaints - Endocrine Reports no additional endocrine complaints - Hematologic/Lymphatic Reports no additional hematologic/lymphatic complaints - Allergic/Immunologic Reports no additional allergic/immunologic complaints Oncology Screenings - ECOG Performance Status ECOG Performance Status: 0 [facility] Medical History: Medical History (Last Updated 05/20/24 @ 08:01 by Dion Sequeira MD) Abnormal colonoscopy Cecum mass Injury of nail bed of finger of left hand Sleep apnea Functional capacity: independent ambulation Patient : No Surgical History: Surgical History (Last Updated 05/17/24 @ 09:21 by Blanca Lopez, RN) H/O sinus surgery Social History: Social History (Last Reviewed 05/15/24 @ 10:03 by My Acevedo RN) Living Situation History: Household Members: Spouse Housing: House Do you presently have visiting nurse or other home services: No Tobacco History: Patient Tobacco Use Status: Never used Tobacco Occupation Assessmet: service: No Current occupational status: unemployed 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 Home Medications and Allergies Current Medications: Current Medications Aripiprazole (Aripiprazole 2 Mg Tablet) 2 mg PO BEDTIME [facility] Last Admin: 05/19/24 20:30 Dose: Not Given Calcium Carbonate (Calcium Carbonate 750 Mg Tab.Chew) 750 mg PO Q6H PRN PRN Reason: Heartburn Last Admin: 05/19/24 07:52 Dose: 750 mg Enoxaparin Sodium (Enoxaparin Sodium 40 Mg/0.4 Ml Syringe) 40 mg SUBCUT Q24H [facility] Last Admin: 05/20/24 09:04 Dose: 40 mg Hydromorphone HCl (Hydromorphone Hcl 0.5 Mg/0.5 Ml Syringe) 0.5 mg IVPUSH Q3H PRN; Protocol PRN Reason: Pain, Severe (Pain Scale 7-10) Hydroxyzine HCl (Hydroxyzine Hcl 50 Mg Tablet) 100 mg PO BEDTIME PRN PRN Reason: Anxiety Last Admin: 05/18/24 22:01 Dose: 100 mg Acetaminophen (Ofirmev) 1,000 mg in 100 mls @ 400 mls/hr IV Q6H [facility] Last Admin: 05/20/24 09:04 Dose: 400 mls/hr Melatonin (Melatonin 3 Mg Tablet) 6 mg PO BEDTIME PRN PRN Reason: Insomnia Omeprazole (Omeprazole 20 Mg Capsule.Dr) 20 mg PO BID@0630,1630 [facility] Last Admin: 05/20/24 05:08 Dose: 20 mg Ondansetron HCl (Ondansetron Hcl 4 Mg/2 Ml Vial) 4 mg IVPUSH Q8H PRN PRN Reason: Nausea and Vomiting Last Admin: 05/18/24 18:21 Dose: 4 mg Oxycodone HCl (Oxycodone Hcl Immed Release 5 Mg Tablet) 5 mg PO Q4H PRN PRN Reason: Pain, Moderate(Pain Scale 4-6) Last Admin: 05/18/24 08:50 Dose: 5 mg Sodium Chloride (0.9 % Sodium Chloride Flush 3 Ml Syringe) 3 ml IVFLUSH [facility] Last Admin: 05/20/24 09:08 Dose: 3 ml Home Medications ?Medication ?Instructions ?Recorded ?Confirmed ?Type aripiprazole 2 mg tablet 2 mg PO BEDTIME 05/14/24 05/14/24 History azelastine 137 mcg (0.1 %) nasal 2 spray intranasal BID 05/14/24 05/14/24 History spray folic acid 1 mg tablet 1 mg PO DAILY 05/14/24 05/14/24 History hydroxyzine pamoate 50 mg capsule 100 mg PO BEDTIME PRN Anxiety 05/14/24 05/14/24 History omeprazole 20 mg capsule,delayed 20 mg PO BID@0630,1630 05/14/24 05/14/24 History release polyethylene glycol 3350 17 17 g PO DAILY PRN constipation 05/14/24 05/14/24 History gram/dose oral powder (Gavilax) Allergies Allergy/AdvReac Type Severity Reaction Status Date / Time No Known Allergies Allergy Verified 05/14/24 17:05 [No Known Allergies*] Physical Exam Vital signs: Vital Signs Temp 97.2 F 05/20/24 07:13 Pulse 62 05/20/24 07:13 Resp 16 05/20/24 07:13 BP 148/80 H 05/20/24 07:13 Pulse Ox 98 05/20/24 07:13 O2 Del Method Room Air 05/20/24 07:13 O2 Flow Rate 6 05/17/24 12:45 Intake & Output 05/19/24 05/20/24 05/20/24 18:59 06:59 18:59 Intake Total 1326.667 / 2766.667 1440 / 2766.667 Output Total 1400 / 3050 1650 / 3050 400 / 400 Balance -73.333 / -283.333 -210 / -283.333 -400 / -400 Urine Output (Average ml/kg/hr) 1.13 1.19 Intake: Intake, Oral Amount 240 / 240 Intake, IV Amount 1326.667 / 2526.667 1200 / 2526.667 Acetaminophen 1,000 mg In 100 200 / 400 200 / 400 ml @ 400 mls/hr IV Q6H [facility] Rx#: [id number] 0.9 % Sodium Chloride 1,000 ml 1126.667 / 2126.667 1000 / 2126.667 @ 50 mls/hr IVCONT .Q20H [facility] Rx #:[id number] Output: Output, Urine Amount 1000 / 2050 1050 / 2050 Output, Stool Amount 400 / 1000 600 / 1000 400 / 400 Other: Urine Urinal Urinal Urine Color Yellow Yellow Last Bowel Movement 05/19/24 05/20/24 05/20/24 Stool Ostomy Ostomy Ostomy Stool Amount Small Moderate Large Stool Color Green Brown Brown Stool Consistency Liquid Liquid Liquid Weight 73.5 kg - Constitutional Present: mild distress - Routine HEENT Exam Head: Present: normal inspection, normocephalic ENT: Present: mucous membranes moist - Routine Neck Exam Present: supple - Routine Respiratory Exam Present: CTAB - Routine Cardiovascular Exam Cardiovascular: Present: RRR, S2 - Routine Abdominal Exam Present: tenderness Hem/Onc Consult Result - Labs CBC & Chem 7: 05/18/24 06:53 05/18/24 08:23 Assessment and Plan (1) Peritoneal carcinomatosis Status: Acute Assessment and plan: 59-year-old gentleman who presented with abdominal pain nausea and vomiting. CT abdomen from 05/14 revealed: CAT scan of the abdomen pelvis revealed: High-grade acute distal small-bowel obstruction with inflammatory 5 cm soft tissue mass in the region of the cecum with inflammatory thickening of the wall of the terminal ileum. Differential diagnosis would favor cecal neoplasm, appendicitis. Additional soft tissue enhancing 3.6 cm inflammatory mass is located in the mesentery image 33 series 2 consistent with omental metastasis. 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 CEA: 149.40. Most likely appendiceal primary. Ileostomy is functioning. PLAN: Would let him recover from the surgery. Will wait for the final pathology results. Then recommend systemic chemotherapy. If it is appendiceal then a modified FOLFOX-6, regimen. He will benefit from a Port-A-Cath placement, to facilitate chemotherapy. Thank you for the consult, Will follow along with you, CC: Dr. Darrius Rangel.
[2024-05-20 11:54] VITALS: BP 138/90; PULSE 75; RESP 15; TEMP 36; O2SAT 98
--- NOTE | 2024-05-20 13:55 | HO.OSTOMY ---
Ostomy Consult: Initial Teaching 59yr old male admitted to [facility] on 05/14/24 see H&P for detailed history and admission.? Consult for new ostomy teaching. ?He had a Diverting Loop Ileostomy creation on 05/17/[address] Sequeira. ?Upon entry into patient's room, he is lying in his bed, he is alert and oriented x 3, he currently has no complaints. ?Introductions were completed, he is agreeable to continuing with teaching. ? We discussed his pain control at /10 at the current moment, he reports increasing the use of his IS and ambulating the entire unit (1x today so far). ?We began by discussing general knowledge about the Ileostomy and questions he had. ?We discussed opening and closing the ostomy pouch. He was able to independently provide a return demonstration on an empty pouch. ?He had not yet emptied his pouch.? We discussed the importance of emptying pouch when 1/3 to 1/2 full, how to empty pouch, and lining water with toilet paper to prevent splash back. With an empty Coloplast pouch he performed a demonstration. He was also educated on when to contact dish maker/Dr Sequeira's office/seek emergency medical treatment. Patient was given some ostomy pouches for transition to home. Aware that Rx written for pouches and rings will be sent by Outpt nurse to [facility] for home delivery.? Reviewed written education with patient and left at bedside for further review. ?He did watch the education videos supplied by [facility]. present for ostomy teaching as well. We discussed s/s of dehydration how to monitor and calculate risk of dehydration and when to call MD vs seek immediate care. He was educated on foods that will thicken his stool. Permission was granted for pouch assessment and no leak was noted however the pouch was applied horizontal fashion and not all conducive to independent care. He was agreeable to a pouch change. Pouch removed no leaking noted the stoma is flush to skin oval red and moist and within a crease, measureing 25mm x 35mm. Unfortunately this will likely impact his pouching - he will benefit from a convex pouch at future changes along with a belt - a few brought to bedside later in the day along with belt. ?He reported having no questions at this time. ?Patient was made aware that I will return to bedside later in week for ongoing education - however to note patient seems to have a good understanding of care and material at this time. ?He will benefit from VNA services at time of discharge. ?All questions and concerns addressed at this time. Stoma with in crease Stoma Next teaching session goals: Continued independent emptying and marking output to monitor for dehydration. Steps to a pouch change he is able to recall We discussed the following steps: 1. Empty pouch before pouch change 2. Remove pouch using push/pull technique from top to bottom 3. Cleanse stoma and skin with tap water only - no soap or baby wipes 4. Pat dry 5. Measure stoma and cut new pouch no more than 1/8 inch larger than stoma and no smaller than stoma 6. Stretch barrier seal to the size of the stoma and press onto skin around stoma (up to the edge of the stoma but not onto the stoma) 7. Press the new pouch into place and hold for several minutes (close pouch tail) 8. Empty pouch when 1/3 to 1/2 full 9. Change pouch twice weekly on a schedule (for example, every Monday and ) and as needed for any leaking (feels like intense itch or burn at edge of stoma) 10. May order pre-cut pouches (already cut to size of stoma) once stoma measures the same size consistently. ?
[2024-05-20 15:14] VITALS: BP 147/81; PULSE 78; RESP 18; TEMP 36; O2SAT 97
--- NOTE | 2024-05-20 16:14 | PM.EVENT ---
Event Note Date of Service: 05/21/24 Event Note: Seen on afternoon rounds Tolerating diet Stoma functioning well Good pain control Abdomen is soft Underwent stoma education with Brynn He wanted to go home today but I told him we will see how he does without IV fluids as he is at risk for dehydration Also seen by Dr. Henson of Oncology Time Spent With Patient Time: Total time managing care of this patient today ____ minutes.
[2024-05-20 19:19] VITALS: BP 140/82; PULSE 67; RESP 18; TEMP 36.3; O2SAT 99
[2024-05-20 23:08] VITALS: BP 137/79; PULSE 64; RESP 18; TEMP 36.9; O2SAT 98
[2024-05-21 03:33] VITALS: BP 142/83; PULSE 68; RESP 18; TEMP 36.5; O2SAT 99
[2024-05-21] MEDS: Omeprazole 20 MG CAPSULE.DR PO (05:25)
[2024-05-21 07:04] VITALS: BP 152/88; PULSE 64; RESP 16; TEMP 36.2; O2SAT 98
[2024-05-21] MEDS: 0.9 % Sodium Chloride Flush 3 ML SYRINGE IVFLUSH (08:03)
[2024-05-21] MEDS: Loperamide HCl 2 MG CAPSULE PO ×2 (08:03→12:47)
[2024-05-21 09:37] LABS: Anion Gap 15 (12-20); Blood Urea Nitrogen 10 mg/dL (9-16); Calcium 9.8 mg/dL (8.4-10.2); Carbon Dioxide 28 mmol/L (22-29); Chloride 99 mmol/L (96-108); Creatinine Clr Calc Pharmacy 78.3; Estimated Glomerular Filt Rate > 60; Glucose Random 107 mg/dL (60-115); Sodium 138 mmol/L (135-145)
--- NOTE | 2024-05-21 09:50 | P.PNGS_ITS ---
Subjective Subjective Date of Service: 05/29/24 Interval history: Feels well Wants to go home Good pain control Stoma functioning well Good stoma output Physical Exam 2 Vital Signs: Vital Signs: Last Vital Signs Temp 97.2 F 05/21/24 07:04 Pulse 64 05/21/24 07:04 Resp 16 05/21/24 07:04 BP 152/88 H 05/21/24 07:04 Pulse Ox 98 05/21/24 07:04 O2 Del Method Room Air 05/21/24 07:04 O2 Flow Rate 6 05/17/24 12:45 BMI result Body Mass Index 24.6 Const: General: comfortable and no acute distress Resp: Effort & Inspection: normal respiratory effort Cardio: Rate: regular rate GI: Other: Midline incision well healing, stoma functioning well, liquid stools Palpation (GI): Soft to palpation, not firm and no guarding Objective Data Active Medications Aripiprazole (Aripiprazole 2 Mg Tablet) 2 mg PO BEDTIME [facility] Last Admin: 05/20/24 22:38 Dose: Not Given Documented By: LUDY Non-Admin Reason: Patient Refused Calcium Carbonate (Calcium Carbonate 750 Mg Tab.Chew) 750 mg PO Q6H PRN PRN Reason: Heartburn Last Admin: 05/19/24 07:52 Dose: 750 mg Documented By: LUCILA Enoxaparin Sodium (Enoxaparin Sodium 40 Mg/0.4 Ml Syringe) 40 mg SUBCUT Q24H [facility] Last Admin: 05/21/24 08:04 Dose: Not Given Documented By: SHERRIE Non-Admin Reason: Patient Refused Hydromorphone HCl (Hydromorphone Hcl 0.5 Mg/0.5 Ml Syringe) 0.5 mg IVPUSH Q3H PRN; Protocol PRN Reason: Pain, Severe (Pain Scale 7-10) Hydroxyzine HCl (Hydroxyzine Hcl 50 Mg Tablet) 100 mg PO BEDTIME PRN PRN Reason: Anxiety Last Admin: 05/18/24 22:01 Dose: 100 mg Documented By: HARLAN Acetaminophen (Ofirmev) 1,000 mg in 100 mls @ 400 mls/hr IV Q6H [facility] Last Admin: 05/21/24 05:21 Dose: Not Given Documented By: LUDY Non-Admin Reason: Patient Refused Loperamide HCl (Loperamide Hcl 2 Mg Capsule) 2 mg PO Q4H [facility] Last Admin: 05/21/24 08:03 Dose: 2 mg Documented By: SHERRIE Melatonin (Melatonin 3 Mg Tablet) 6 mg PO BEDTIME PRN PRN Reason: Insomnia Omeprazole (Omeprazole 20 Mg Capsule.) 20 mg PO BID@0630,1630 [facility] Last Admin: 05/21/24 05:25 Dose: 20 mg Documented By: LUDY Ondansetron HCl (Ondansetron Hcl 4 Mg/2 Ml Vial) 4 mg IVPUSH Q8H PRN PRN Reason: Nausea and Vomiting Last Admin: 05/18/24 18:21 Dose: 4 mg Documented By: LUCILA Oxycodone HCl (Oxycodone Hcl Immed Release 5 Mg Tablet) 5 mg PO Q4H PRN PRN Reason: Pain, Moderate(Pain Scale 4-6) Last Admin: 05/18/24 08:50 Dose: 5 mg Documented By: LUCILA Psyllium Hydrophilic Mucilloid (Psyllium Seed 3.7 Gm Packet) 3.7 gm PO BEDTIME [facility] Sodium Chloride (0.9 % Sodium Chloride Flush 3 Ml Syringe) 3 ml IVFLUSH QSHIFT [facility] Last Admin: 05/21/24 08:03 Dose: 3 ml Documented By: SHERRIE Labs 05/18/24 06:53 05/21/24 07:57 Labs: Laboratory Results - last 24 hr 05/21/24 07:57 Anion Gap 15 Estim Creat Clear Calc 78.3 Estimated GFR > 60 Random Glucose 107 Calcium 9.8 Procedures Date of Service Date of Service: 05/29/24 Progress Note: A&P Assessment and plan (1) Peritoneal carcinomatosis: Status: Acute Assessment and Plan: Status post loop ileostomy for obstruction at the cecum, with 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 Henson I will discuss future plans with Dr. Henson as well as with the patient Time Spent With Patient Time: Total time managing care of this patient today ____ minutes. Quality Stroke Does the patient have a stroke diagnosis?: No VTE Prior VTE?: No VTE Risk Level:: Surgical - low VTE Device Contraindication: N/A - Device Ordered VTE Drug Contraindication: N/A - Med Ordered
[2024-05-21 11:41] VITALS: BP 139/84; PULSE 87; RESP 14; TEMP 36.1; O2SAT 97
--- NOTE | 2024-05-21 11:45 | MHC.CM.PN ---
DP: PT HAS BEEN MEDICALLY CLEARED FOR DC HOME WITH [facility] FOR NURSING. [facility] NOTIFIED OF TODAY'S DC. PT HAS OWN RIDE HOME
--- NOTE | 2024-05-21 12:08 | W.MHC.F2F ---
Service Date Service Date: 05/21/24 Encounter Date of encounter: 05/21/24 Reasons for Services Signs and symptoms assessed: abdominal pain, abdominal tenderness, incision appearance, ileostomy appearance and output Reason for intermediate: wound care and postoperative assessment and/or care Homebound: Leaving the home is medically contraindicated at this time without the asist of a device and/or another person due th the listed conditions above and below. Reason homebound: weakness related to hospital stay and unable to drive Homebound supporting statement: Mr. Preston Pena is s/p diverting loop ileostomy for obstructing cecal mass. He will need VNA services for ileostomy care. Certification: Based on the above findings, I certify that this patient is confined to the home and needs intermittent intermediate care, physical therapy and/or speech therapy, or continues to need occupational therapy. The patient is under my care, and I have initiated the establishment of the plan of care. The patient will be followed by a physician who will periodically review the plan of care. Time Spent With Patient Time: Total time managing care of this patient today ____ minutes.
--- NOTE | 2024-05-21 12:09 | PM.DS ---
DS: Providers Provider Date of Service: 05/21/24 Date of admission: 05/14/24 22:16 Date of discharge: 05/21/24 Primary care physician: Darrius Rangel III, MD Attending physician on admission: Trini Awan Consults: 05/17/24 13:00 Consult to Ostomy Care Routine 05/20/24 08:02 Consult to Hematology / Oncology Routine Consulting Provider: [facility] Oncology/Hematology Reason for consultation: Carcinomatosis, cecal mass Attending physician on discharge: Dion Sequeira DS: Diagnosis Discharge Diagnosis (1) Peritoneal carcinomatosis: Status: Acute DS: Summary Hospital Course Hospital Course: HPI AT ADMISSION: Lance Pena is a 59 year old male who comes in today complaining of nausea and vomiting which is very unusual for him. He also has some generalized abdominal pain. 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 He thinks that he had a colonoscopy probably closer to when he was 49 years old and they did not find anything and he is coming up due for another 1 it is 59 years old. He has been complaining constipation which is worsened over time in which he treats with MiraLax. Sometimes he takes a once a day sometimes twice as he was directed. He says he did have 2 bowel movements earlier today small wounds but they were soft and then. He denies any family history of any colon cancer. He does not have any symptoms consistent with appendicitis. Generally he has had on and off constipation and just feeling a little more bloated in the days prior. No other sick contacts. He is retired. He has never had any abdominal surgery. Denies any blood per rectum. He does have issues with heartburn and reflux disease and takes medication a PPI for this. CT scan findings showing a mass in the right lower quadrant area question inflammatory versus colon Neoplasm. HOSPITAL COURSE: He was admitted to the surgical service for further treatment of the small-bowel obstruction of uncertain etiology, with question of colonic mass. He was treated with conservative measures initially with bowel rest, IV fluid resuscitation. Possible plan for carrying out a colonoscopy prep if he improved for colonoscopy to evaluate the colon and then making a decision for the next surgical step depending on the findings. CEA was obtained which was significantly elevated at 149.40. He did have some improvement in his symptoms and return of GI function however he continued to have significantly dilated small bowel loops. It was therefore recommended to proceed with hand assisted laparoscopic right colon resection in view of suspicious neoplastic process in the cecum/terminal ileum, causing proximal small bowel dilatation markedly elevated CEA. On 05/17/24, hand assisted laparoscopic extensive lysis of adhesions, biopsies of peritoneal studding, diverting loop ileostomy was performed by Dr. Sequeira without immediate complication. He was found to have a cecal mass with extensive peritoneal studding. The mass was markedly adherent to the retroperitoneum and the sidewall as well as the matted loops of terminal ileum surrounding the mass and the sigmoid colon. 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 He had an uncomplicated recovery course. He was started on clear liquids post operatively. His kennedy was removed on POD #1. He was continued on clears until his ileostomy began to have bilious output on POD# 2 and he was advanced to solids. His activity was increased and he was ambulated. His pain was well controlled. Ostomy education was performed. Oncology was consulted who will await final pathology and see him as an outpatient. His ileostomy bridge was removed. He developed high ileostomy output and was started on imodium. His IVF were discontinued and his electrolytes remained normal the following day and he showed no signs of dehydration. On the day of discharge, he was tolerating a solid diet without nausea or vomiting, his pain was well controlled and he was comfortable, he was ambulating without difficulty. His abdomen was benign with appropriate post op tenderness and clean incisions, ostomy was functioning well. He was discharged to home on 05/21/24 in stable condition with VNA services for ostomy care. He is to follow up in the office in 1-2 weeks. Oral fluid intake was encouraged to prevent dehydration and instructions on using imodium for high ileostomy output were provided. Status at Discharge Functional status at discharge: independent ambulation Overall status at discharge: patient is progressing back to baseline Time Attestation Discharge Coordination Time (in mins): 45 Quality: Safe Use of Opioids Does Pt have an Active Cancer Diagnosis on the Problem List?: Yes Opioid Measure Date for [facility] Report: 04/21/24 Opioid Measure Time for [facility] Report: 12:36 Quality: Stroke Does the patient have a stroke diagnosis?: No Physical Exam Vital Signs: Vital Signs: Last Vital Signs Temp 97.0 F 05/21/24 11:41 Pulse 87 05/21/24 11:41 Resp 14 05/21/24 11:41 BP 139/84 05/21/24 11:41 Pulse Ox 97 05/21/24 11:41 O2 Del Method Room Air 05/21/24 11:41 O2 Flow Rate 6 05/17/24 12:45 BMI result Body Mass Index 24.6 Const: General: comfortable, no acute distress and alert Orientation/consciousness: patient oriented x3 Resp: Effort & Inspection: normal respiratory effort GI: Other: midline incisions clean and healing well ostomy viable appearing, liquid stool Palpation (GI): Soft to palpation and no guarding Neuro: General: patient oriented x3 DS: Data Data Completed and Pending Pending studies at discharge: Pending at discharge 05/17/24 11:31 Surgical [PTH] Stat Labs on day of discharge: Laboratory Results - last 24 hr 05/21/24 07:57 Sodium 138 Potassium 4.0 Chloride 99 Carbon Dioxide 28 Anion Gap 15 BUN 10 Creatinine 0.97 Estim Creat Clear Calc 78.3 Estimated GFR > 60 Random Glucose 107 Calcium 9.8 Discharge Plan Discharge Anticipated Discharge Date/Time: 05/21/24 09:43 Patient Disposition: Home Health Service Discharge Diagnosis: cecal mass, peritoneal carcinomatosis, s/p loop ileostomy Referrals: Annmarie CHANG [Outside] - 1 Week (HOME SERVICES FOR GROUP HOME VISITS- A NURSE WILL CALL YOU TO SET UP FIRST VISIT) Darrius Rangel III, MD [Primary Care Provider] - 1 Week Dion Sequeira MD [Physician] - 1 Week Discharge Medications: New oxycodone 5 mg tablet 5 mg PO Q4H PRN (Reason: pain (scale score 7-10)) Qty: 24 0RF Rx Instructions: Partial Fill upon patient request. loperamide [Anti-Diarrheal (loperamide)] 2 mg tablet 2 mg PO TID PRN (Reason: high output from stoma) Qty: 60 0RF Continued hydroxyzine pamoate 50 mg capsule 100 mg PO BEDTIME PRN (Reason: Anxiety) omeprazole 20 mg capsule,delayed release(DR/EC) 20 mg PO BID@0630,1630 folic acid 1 mg tablet 1 mg PO DAILY azelastine 137 mcg (0.1 %) spray,non-aerosol 2 spray intranasal BID aripiprazole 2 mg tablet 2 mg PO BEDTIME acetaminophen [Tylenol] 325 mg tablet 650 mg PO Q6H PRN (Reason: pain) Qty: 30 0RF Held polyethylene glycol 3350 [Gavilax] 17 gram/dose powder 17 g PO DAILY PRN (Reason: constipation) Hold Instructions: per MD Rx Instructions: MIX 1 CAPFUL (17GM) INTO 8OZ OF LIQUID AND DRINK BY MOUTH 1-2 TIMES DAILY NEEDED FOR CONSTIPATION Discharge Orders: Discharge Order (Routine); Ordered 05/21/24 Ordered By: Danae Mendoza Diet: Advance to usual diet Activity on Discharge: No heavy lifting Stand Alone Forms: Patient Portal Discharge page Print Language: Luxembourger Activity Restrictions/Additional Instructions: If the incision area is tender, you may apply an ice pack for short intervals (No more than 20 minutes on, followed by at least 20 minutes off). Do not apply heat. Do not use creams, lotions, or topical antibiotics. These can cause infection or allergic reaction. Ok to shower. You have herman closing your incision and these will be removed approximately 10-14 days after surgery. NO HEAVY LIFTING (>10lbs) or strenuous activity. Follow up in office. ([phone]) Call Your Doctor If: -Your temperature exceeds 101.5? F -You experience excessive pain or swelling -You have an unexpected reaction to medication -You have excessive bleeding -You experience continued vomiting/nausea -Your incision begins to separate -Your incision shows signs of infection such as increased redness, swelling, excessive pain, drainage (light blood or clear fluid is normal) or heat Ostomy recommendations: 1. Empty pouch before pouch change 2. Remove pouch using push/pull technique from top to bottom 3. Cleanse stoma and skin with tap water only - no soap or baby wipes 4. Pat dry 5. Measure stoma and cut new pouch no more than 1/8 inch larger than stoma and no smaller than stoma 6. If instructed by your ostomy nurse stretch barrier seal to the size of the stoma and press onto skin around stoma (up to the edge of the stoma but not onto the stoma) 7. Press the new pouch into place and hold for several minutes (close pouch tail) 8. Empty pouch when 1/3 to 1/2 full 9. Change pouch twice weekly on a schedule (for example, every Monday and ) and as needed for any leaking (feels like intense itch or burn at edge of stoma) If the ileostomy output is extremely high, take loperamide up to 3 times a day If your urine becomes very concentrated and you have signs of hydration with weakness, should to the emergency room for IV fluid Care Plan Goals: Return to baseline health and resume normal activities following recovery period. Health Concerns: SBO cecal mass carcinomatosis Plan of Treatment: s/p diverting loop ileostomy home with VNA services for ostomy care F/u in office in 1-2 weeks F/u with oncology, PCP Assessment: Improved
--- NOTE | 2024-05-21 13:20 | HO.OSTOMY ---
Ostomy Consult: Follow up Teaching 59yr old male admitted to [facility] on 05/14/24 see H&P for detailed history and admission.? Consult for new ostomy teaching. ?He had a Diverting Loop Ileostomy creation on 05/17/[address] Sequeira. ?Upon entry into patient's room, he is siting in his recliner chair, he is alert and oriented x 3, he currently has no complaints. ?He recalls my roll in his care. he is set for d/c he has supplies, and services in place. The patient and his asked questions related to foods to thicken his diet and how to prevent dehydration. Details from last teaching: Introductions were completed, he is agreeable to continuing with teaching. ? We discussed his pain control at /10 at the current moment, he reports increasing the use of his IS and ambulating the entire unit (1x today so far). ?We began by discussing general knowledge about the Ileostomy and questions he had. ?We discussed opening and closing the ostomy pouch. He was able to independently provide a return demonstration on an empty pouch. ?He had not yet emptied his pouch.? We discussed the importance of emptying pouch when 1/3 to 1/2 full, how to empty pouch, and lining water with toilet paper to prevent splash back. With an empty Coloplast pouch he performed a demonstration. He was also educated on when to contact headline writer/Dr Sequeira's office/seek emergency medical treatment. Patient was given some ostomy pouches for transition to home. Aware that Rx written for pouches and rings will be sent by Outpt nurse to [place] for home delivery.? Reviewed written education with patient and left at bedside for further review. ?He did watch the education videos supplied by [facility]. present for ostomy teaching as well. We discussed s/s of dehydration how to monitor and calculate risk of dehydration and when to call MD vs seek immediate care. He was educated on foods that will thicken his stool. Permission was granted for pouch assessment and no leak was noted however the pouch was applied horizontal fashion and not all conducive to independent care. He was agreeable to a pouch change. Pouch removed no leaking noted the stoma is flush to skin oval red and moist and within a crease, measureing 25mm x 35mm. Unfortunately this will likely impact his pouching - he will benefit from a convex pouch at future changes along with a belt - a few brought to bedside later in the day along with belt. ?He reported having no questions at this time. ?Patient was made aware that I will return to bedside later in week for ongoing education - however to note patient seems to have a good understanding of care and material at this time. ?He will benefit from VNA services at time of discharge. ?All questions and concerns addressed at this time. Stoma with in crease Stoma Next teaching session goals: Continued independent emptying and marking output to monitor for dehydration. Steps to a pouch change he is able to recall We discussed the following steps: 1. Empty pouch before pouch change 2. Remove pouch using push/pull technique from top to bottom 3. Cleanse stoma and skin with tap water only - no soap or baby wipes 4. Pat dry 5. Measure stoma and cut new pouch no more than 1/8 inch larger than stoma and no smaller than stoma 6. Stretch barrier seal to the size of the stoma and press onto skin around stoma (up to the edge of the stoma but not onto the stoma) 7. Press the new pouch into place and hold for several minutes (close pouch tail) 8. Empty pouch when 1/3 to 1/2 full 9. Change pouch twice weekly on a schedule (for example, every Monday and ) and as needed for any leaking (feels like intense itch or burn at edge of stoma) 10. May order pre-cut pouches (already cut to size of stoma) once stoma measures the same size consistently. ?
[2024-05-21 13:34] VITALS: BP 146/92; PULSE 89; RESP 16; TEMP 35.9; O2SAT 100
== END 2024-05-21 13:40 | disposition home health service (06) | DRG 330 ==
LOC: HO.ED 20:58 → HO.EDOVER 22:37 → HO.S3 05-15 07:08
PROVIDERS: Physician Assistant Medical; Physician Assistant Surgical; Surgery; Admitting Provider Surgery; Emergency Provider Emergency Medicine; PCP Internal Medicine; Visit Provider Surgery
PROC: 0DTE0ZZ Resection of Large Intestine, Open Approach (ICD-10-PCS; principal; 2024-05-17 11:20)
DX: C18.1 Malignant neoplasm of appendix (principal); C78.6 Secondary malignant neoplasm of retroperitoneum and peritoneum; K66.0 Peritoneal adhesions (postprocedural) (postinfection); G89.18 Other acute postprocedural pain; Z79.899 Other long term (current) drug therapy
CPT/HCPCS: 36415; 74018; 74177; 80048; 80053; 82378; 83690; 83735; 85025; 86850; 86900; 86901; 88305; 88341; 88342; 88360; 99285; J0131; J1100; J1650; J1885; J2003; J2250; J2405; J2470; J2704; J2795; J3010; J7120; Q9967

== ENCOUNTER → 2024-05-14 17:06 | Outpatient (BNV) | payer MEDICARE, MEDICAID, SELFPAY | PROVIDERS: Emergency Provider Emergency Medicine; PCP Internal Medicine; Visit Provider Radiology Diagnostic Radiology | DX: R10.30 Lower abdominal pain, unspecified (principal) | CPT/HCPCS: 74018; 74177 ==

== ENCOUNTER 2024-05-14 22:16 | Outpatient (BNV) | payer MEDICARE, MEDICAID, SELFPAY | END 2024-05-16 08:00 | PROVIDERS: Admitting Provider Surgery; Emergency Provider Emergency Medicine; PCP Internal Medicine; Visit Provider Radiology Diagnostic Radiology | DX: K56.609 Unspecified intestinal obstruction, unspecified as to partial versus complete obstruction (principal); R11.2 Nausea with vomiting, unspecified | CPT/HCPCS: 74018 ==

== ENCOUNTER 2024-05-14 22:16 | Outpatient (BNV) | payer MEDICARE, MEDICAID, SELFPAY | END 2024-05-15 09:10 | PROVIDERS: Admitting Provider Surgery; Emergency Provider Emergency Medicine; PCP Internal Medicine; Visit Provider Radiology Diagnostic Radiology | DX: K56.609 Unspecified intestinal obstruction, unspecified as to partial versus complete obstruction (principal) | CPT/HCPCS: 74018 ==

== ENCOUNTER → 2024-05-14 22:16 | Outpatient (BNV) | payer MEDICARE, MEDICAID, SELFPAY | PROVIDERS: Admitting Provider Surgery; Emergency Provider Emergency Medicine; PCP Internal Medicine; Visit Provider Internal Medicine Medical Oncology | DX: C18.1 Malignant neoplasm of appendix (principal); C78.6 Secondary malignant neoplasm of retroperitoneum and peritoneum | CPT/HCPCS: 99222 ==

== ENCOUNTER → 2024-05-14 22:16 | Outpatient (BNV) | payer MEDICARE, MEDICAID, SELFPAY | PROVIDERS: Admitting Provider Surgery; Emergency Provider Emergency Medicine; PCP Internal Medicine; Visit Provider Surgery | DX: K56.609 Unspecified intestinal obstruction, unspecified as to partial versus complete obstruction (principal) | CPT/HCPCS: 99223; 99232; 99499 ==

== ENCOUNTER 2024-05-29 09:19 | Outpatient (AMB) | payer MEDICARE, MEDICAID, SELFPAY ==
--- NOTE | 2024-05-29 09:20 | MHC.OFFVIS ---
Vital Signs 05/29/24 09:30 Height 5 ft 7 in Weight 158 lb BMI 24.7 BP 147/85 H Blood Pressure Location Lt brachial Position Sitting Pulse 89 Intake Visit Reasons: s/p small-bowel obstruction Intake Note: Patient is seen in office for post op assessment post small bowel obstruction. 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 He was admitted for signs of small-bowel obstruction at the terminal ileum last May 15, 2024. There was note of a mass in the cecum at that time so he underwent hand assisted laparoscopy on May 17, 2024. However, intraop finding showed carcinomatosis and a mass in the cecum that was markedly adherent to the retroperitoneum with movement of the sigmoid. He therefore underwent a diverting loop ileostomy. He was discharged on postop day number 4. He says that this ileostomy has been functioning well. He denies significant complaints. He does not seem to have a high output ileostomy. He has good oral intake. 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 This is likely from a mucinous appendiceal tumor in view of the aggressive nature of the disease. His incisions are healing well. I removed all the skin herman. His ileostomy does not seem to have high output and does not appear watery. He we will be seen on follow up by Oncology next week. He we will likely to start with chemotherapy soon. We will also arrange for him to be seen at [place] for possible HIPEC procedure. I will help him set this up. I will discuss plans Dr. Henson next week. Overall he seems to be doing well postoperatively. His stoma is functioning well. I did advise him to increase his dose of loperamide. He does not seem to have a high output ileostomy. I will see him again in the office next month. Coding Level of Care Code Global (55994) Diagnoses Peritoneal carcinomatosis C78.6
[2024-05-29 09:30] VITALS: BP 147/85; PULSE 89; BMI 24.7
--- OUTSIDE RECORDS SUMMARY | 2024-05-29 10:22 | XMS_ITS ---
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
--- OUTSIDE RECORDS SUMMARY | 2024-05-29 10:22 | XMS_ITS | Clinical Summary ---
Author Organization 175 [facility] Address 175 [place] [address] Phone Care Team Providers Care Jig Maker Name Role Phone Darrius Rangel MD Primary Care Provider [phone] Allergies No known active allergies Medications ARIPiprazole (ABILIFY) 5 mg tablet Take 1 tablet (5 mg total) by mouth 1 (one) time each day. Active chlorhexidine (PERIDEX) 0.12 % solution chlorhexidine (PERIDEX) 0.12 % solution Active FLUoxetine (PROzac) 40 mg capsule Take 1 capsule (40 mg total) by mouth 1 (one) time each day in the morning. Active folic acid (FOLVITE) 1 mg tablet Take 1 tablet (1,000 mcg total) by mouth 1 (one) time each day. 2 Active hydrOXYzine pamoate (VISTARIL) 50 mg capsule TAKE 2 CAPSULES BY MOUTH EVERY DAY AT BEDTIME 4 Active polyethylene glycol (MIRALAX) 17 gram packet Take 17 g by mouth 1 (one) time each day. 3 Active simethicone (Gas Relief, simethicone,) 180 mg capsule Take 1 capsule (180 mg total) by mouth 3 (three) times a day. Take 1 Capsule by mouth 3 times daily as needed (gas, blotaing Active Gavilax 17 gram/dose oral powder MIX 1 CAPFUL (17GM) INTO 8OZ OF LIQUID AND DRINK BY MOUTH 1-2 TIMES DAILY NEEDED FOR CONSTIPATION 510 g 3 4 Active loratadine (CLARITIN) 10 mg tablet TAKE 1 TABLET BY MOUTH EVERY DAY 90 tablet 1 5 Active azelastine (ASTELIN) 137 mcg (0.1 %) nasal sprayIndication s:Allergic rhinitis, unspecified seasonality, unspecified trigger Administer 2 sprays into each nostril 2 (two) times a day. Use in each nostril as directed 30 mL 2 5 026 Active omeprazole (PriLOSEC) [address] capsule TAKE 1 CAPSULE BY MOUTH TWICE A DAY 180 capsule 1 5 Active Active Problems Problem Noted Date Diagnosed Date Current moderate episode of major depressive disorder without prior episode 09/21/2020 Adjustment disorder with mixed anxiety and depre ssed mood 04/30/2020 Obstructive sleep apnea 07/04/2018 Overview (12/03/2023): [facility] Home Polysomnogram: Date 06/30/2018; Wt 199#; BMI 31; MISBAH 79, AI 68; HI 11; Unclassified apneas 16; Obstructive apneas 481; Central apneas 93; Mixed apneas 18; hypopneas 99; no oximetry data. - Obstructive Sleep Apnea - severe; mostly obstructive with frequent central apneas and hypopneas by 2018 home polysomnogram. [facility] Home Sleep Apnea Test: Date 06/02/2021; BMI 26.6; AHI 51; average oxygen saturation 92% (lowest 67% with saturations <88% for 5% or more of study) - Obstructive Sleep Apnea - severe; with sleep related hypoventilation by 2021 home sleep apnea test. Gastroesophageal reflux disease without esophagi tis 06/05/2018 Chronic constipation 11/30/2016 Diverticulosis 09/14/2009 Overview (12/03/2023): CT Scan 09/05 found incidently Esophageal reflux 06/20/2006 Allergic rhinitis 05/26/2006 Encounters Date Type Department Care Team Description 05/23/2024 Telephone Adult Medicine [address] [phone] Kelly Tilley RN 04/08/[address] [place] [address] Heavenly Kilpatrick [place] DME request 04/02/2024 8:50 AM EST [facility] [address] [place] [address] Vilma Sepulveda NP Obstructive sleep apnea (Primary Dx); Allergic rhinitis, unspecified seasonality, unspecified trigger; Gastroesophageal reflux disease, unspecified whether esophagitis present; Overweight (BMI 25.0-29.9) 03/28/2024 10:00 AM EST Office Visit [address] [phone] Jessy Rivera PA Allergic rhinitis, unspecified seasonality, unspecified trigger (Primary Dx); Gastroesophageal reflux disease, unspecified whether esophagitis present; Chronic constipation; Depression, unspecified depression type; High cholesterol from Last 3 Months Immunizations Name Administration Dates Next Due Influenza Quadravalent, MDCK , 0.5ml, preservative free (Flucelvax) 6mo and older 11/18/2019 Influenza Quadravalent, MDCK , 0.5ml, with preservative (Flucelvax) 6mo and older 12/05/2017,11/30/2016 Influenza trivalent, 0.5mL, preservative free (Fluarix; FluLaval; Fluzone) ages 6mo and older (Afluria) 3 years and older 11/26/2023,12/23/2015 Influenza trivalent, with pr eservative (Fluzone; Afluria) 6mo and older 12/21/2014,02/14/2013 Influenza, Unspecified 12/23/2015 Td Tetanus diptheria (Tdvax) 7yo and older 06/05 Tdap Tetanus diptheria acell ular pertussis (Boostrix; Adacel) 7yo and older 10/02/2022,06/20/2006 Zoster recombinant (Shingrix) 19yo and older 08/2020,03/03/2020 Surgical History Surgery Date Site/Laterality Comments OTHER SURGICAL HISTORY PROCEDURE: DENIES PREVIOUS SURGERY COLONOSCOPY 06/30/14 PROCEDURE: HISTORICAL COLONOSCOPY; COMMENT: hemorrhoids; repeat in 10 yrs Medical History Medical History Date Comments Allergic rhinitis, cause unspecified 05/26/2006 DX:Allergic rhinitis, cause unspecified Esophageal reflux 06/20/2006 DX:Esophageal reflux Diverticulosis 09/14/2009 DX:Diverticulosi s Chronic constipation 11/30/2016 DX:Chronic constipation Family History Relation Name Status Comments Brother 1 Alive Brother 2 Alive Brother 3 Alive Daughter 1 Alive Daughter 2 Alive Father Mother Alive HTN, DM Sister 1 Alive Sister 2 Alive Sister 3 Alive Sister 4 Alive Sister 5 Alive Son Social History Tobacco Use Types Packs/Day Years Used Date Smoking Tobacco: Never Smokeless Tobacco: Never Alcohol Use Standard Drinks/Week Comments Not Currently 0 (1 standard drink = 0.6 oz pur e alcohol) Housing Instability Answer Date Recorde d Are you worried that in the next 2 months you may not have stable housing? No 05/22/2024 Food Access & Nutrition Answer Date Rec orded Do you have access to a vari ety of food including fruits and vegetables? Yes 01/04/2024 Health Literacy Answer Date Recorded How often do you need to hav e someone help you when you read instructions, pamphlets, or other written material from your doctor or pharmacy? Patient declined 01/04/2024 Caregiver: How often do you need to have someone help you when you read instructions, pamphlets, or other written material from your doctor or pharmacy? Not on file 024 Financial Risk Answer Date Recorded How hard is it for you to pa y for the very basics like food, housing, medical care, and air conditioning / heating? Not very hard 05/22/2024 Transportation Answer Date Recorded Has the lack of transportati on kept you from meetings, work, or from getting things needed for daily living? No Has the lack of transportati on kept you from medical appointments or from getting medications? No 05/22/2024 Social Isolation Answer Date Recorded How often do you feel lonely or isolated from those around you? Patient declined 01/04/2024 Food Risk Answer Date Recorded Within the past 12 months we worried whether our food would run out before we got money to buy more. Never true 05/22/2024 Within the past 12 months th e food we bought just didn't last and we didn't have money to get more. Never true 05/22/2024 Dependent Care Answer Date Recorded Do you need help finding or paying for care for your loved ones. For example, child development teacher or elderly care for an older adult? No 01/04/2024 Education Answer Date Recorded Do you think completing more education or training, like finishing a GED, going to college, or learning a trade, would be helpful for you? Patient declined 01/04/2024 Employment and Income Answer Date Recor ded During the last four weeks, have you been actively looking for work? Patient declined 01/04/2024 Living Situation Answer Date Recorded What is your living situation? 0 05/22/2024 Sex and Gender Information Value Date Recorded Sex Assigned at Male 12/31/2023 9:35 AM EST Legal Sex Male 9:07 AM EST Gender Identity Male 12/31/2023 9:35 AM EST Sexual Orientation Not on file Obstetrics History Last Filed Vital Signs Vital Sign Reading Time Taken Comments Blood Pressure 120/80 04/02/2024 8:46 AM EST Pulse 76 04/02/2024 8:46 AM EST Temperature 36.4 ??C (97.6 ??F) 04/02/2024 8:46 AM ES T Respiratory Rate 16 04/02/2024 8:46 AM EST Oxygen Saturation 98% 04/02/2024 8:46 AM EST Inhaled Oxygen Concentration - - Weight 78.2 kg (172 lb 6.4 oz) 04/02/2024 8:46 A M EST Height 170.2 cm (5' 7 ) 04/02/2024 8:46 AM EST Body Mass Index 27 04/02/2024 8:46 AM EST Plan of Treatment Upcoming Encounters Date Type Department Care Team (Late st Contact Info) Description 06/03/2024 1:00 PM EDT Office Visit Gastroenterology - [place] [address] [facility] [address] [place] [phone] Crista Rodriguez PA [address] [place] [address] 06/13/2024 1:30 PM EDT Office Visit Adult Medicine [address] [phone] Darrius Rangel MD [address] [place] [address] 07/01/2024 9:10 AM EDT Office Visit Pulmonolgy - [place] 175 [facility] [address] [place] [phone] Vilma Sepulveda NP 175 [facility] [address] [place] [address] 08/01/2024 11:30 AM EDT Office Visit Adult Medicine [facility] [address] [place] [address] Darrius Rangel MD [address] [place] [address] Health Maintenance Due Date Last Done Comments Pneumococcal Vaccine: 50+ Years (1 of 1 - PCV) 2014 HIV Screening 02/05/2022 Medicare Annual Wellness Visit 02/05/2022 Colorectal Cancer Screening: Colonoscopy 06/30/2024 06/30/2014 Depression Screening 01/03/2025 01/04/2024, 06/02/19 24 Social Influencers of Health Screening 05/22/2025 05/22/2024 Cholesterol Screening (Lipid Panel) 01/11/2029 01/12/2024, 09/26/2023, 09/26/2023 DTaP,Tdap,and Td Vaccines (4 - Td or Tdap) 10/02/2032 10/02/2022, 06/05/2018, 06/20/2006 RSV Immunization Adult Patients (1 - 1-dose 75+ series) 2039 Hepatitis C Screening Completed 06/05/2018 Zoster Vaccines Completed 05/03/2020, 03/03/2020 COVID-19 Vaccine Completed 11/26/2023, , 11/07/2021, Additional history exists Influenza Vaccine Completed 11/26/2023, , 11/07/2021, Additional history exists HIB Vaccines Aged Out No longer eligi ble based on patient's age to complete this topic HPV Vaccines Aged Out No longer eligi ble based on patient's age to complete this topic Hepatitis A Vaccines Aged Out No long er eligible based on patient's age to complete this topic Hepatitis B Vaccines Aged Out No long er eligible based on patient's age to complete this topic IPV Vaccines Aged Out No longer eligi ble based on patient's age to complete this topic MMR Vaccines Aged Out No longer eligi ble based on patient's age to complete this topic Meningococcal ACWY Vaccine Aged Out N o longer eligible based on patient's age to complete this topic Meningococcal B Vacine Aged Out No lo nger eligible based on patient's age to complete this topic Pneumococcal Vaccine: Pediatrics (0 to 5 Years) and At-Risk Patients (6 to 64 Years) Aged Out No longer eligible based on patient's age to complete this topic RSV Immunization Patients Under 20 months Aged Out No longer eligible based on patient's age to complete this topic Varicella Vaccines Aged Out No longer eligible based on patient's age to complete this topic Procedures Procedure Name Priority Date/Time Associated Diagnosis Comments LIPID PANEL WITH REFLEX TO DIRECT LDL Routine 01/12/2024 9:08 AM EST Routine history and physical examination of adult DEPRESSION SCREENING Routine 06/02/2023 HEPATITIS C SCREENING Routine 06/05/2018 COLONOSCOPY Routine 06/30/2014 from Last 3 Months or Most Recently Relevant to Health Maintenance Results * (ABNORMAL) Lipid panel with reflex to direct LDL (01/12/2024 9:08 AM EST) Cholesterol 196 0 - 200 mg/dL LAB CHEMISTRY METHOD 01/12/2024 12:45 PM EST [facility] Triglycerides 152(H) 0 - 150 mg/dL LAB CHEMISTRY METHOD 01/12/2024 12:45 PM EST [facility] HDL 45 >=40 mg/dL LAB CHEMISTRY METHOD 01/12/2024 12:45 PM EST [facility] LDL Calculated 121(H) 0 - 100 mg/dL LAB CHEMISTRY METHOD 01/12/2024 12:45 PM EST [facility] VLDL Cholesterol Allen 30.4 mg/dL LAB CHEMISTRY METHOD 01/12/2024 12:45 PM EST [facility] Non HDL Chol. (LDL+VLDL) 151(H) <145 mg/dL LAB CHEMISTRY METHOD 01/12/2024 12:45 PM EST [facility] Chol/HDL Ratio 4.4 0.0 - 4.4 LAB CHEMISTRY METHOD 01/12/2024 12:45 PM EST [facility] Blood Venous blood specimen / Unknown Venipuncture / Unknown 01/12/2024 9:08 AM EST 01/12/2024 9:08 AM EST Jessy RAYA LAB BLOOD ORDERABLES Fi nal Result [facility] [address] [place] [address], [place] [phone] * Depression Screening (06/02/2023) Pathologist [facility] Depression Screening ABSTRACTED [facility] Provider HEALTH MAINTENANCE Final Result * Hepatitis C Screening (06/05/2018) Pathologist [facility] Hepatitis C Screening ABSTRACTED [facility] Provider HEALTH MAINTENANCE Final Result * Colonoscopy (06/30/2014) Pathologist [facility] Colonoscopy NO INTERPRETATION , ABSTRACTED Anatomical Region Laterality Modality Other [facility] Provider HEALTH MAINTENANCE Final Result from Last 3 Months or Most Recently Relevant to Health Maintenance Insurance MEDICARE MEDICAID - [place] Care Teams Jig Maker Relationship Specialty Start Date End Date Darrius Rangel MD [address] [place] [phone] PCP - General Internal Medicine 12/29/23
== END 2024-05-29 09:56 | disposition home or self-care (01) ==
LOC: HO.HGS 09:20
PROVIDERS: PCP Internal Medicine; Visit Provider Surgery
DX: C78.6 Secondary malignant neoplasm of retroperitoneum and peritoneum (principal)
CPT/HCPCS: 99024

== ENCOUNTER → 2024-05-29 09:19 | Outpatient (BNVA) | payer MEDICARE, MEDICAID, SELFPAY | PROVIDERS: PCP Internal Medicine; Visit Provider Surgery | DX: C78.6 Secondary malignant neoplasm of retroperitoneum and peritoneum (principal); Z08 Encounter for follow-up examination after completed treatment for malignant neoplasm; Z93.2 Ileostomy status | CPT/HCPCS: 99212 ==

== ENCOUNTER 2024-06-25 08:54 | Outpatient (AMB) | payer MEDICARE, MEDICAID, SELFPAY ==
--- NOTE | 2024-06-25 08:56 | MHC.OFFVIS ---
Vital Signs 06/25/24 09:01 Height 5 ft 7 in Weight 157 lb BMI 24.6 BP 134/84 Blood Pressure Location Rt brachial Position Sitting Pulse 71 Intake Visit Reasons: one month post SBO Intake Note: Patient here for 1m s/p small bowel obstruction. Reports stoma functioning well. Patient c/o: no concerns. Reports no changes in medical hx or medications since last visit. Surgery: 05-17-2024 Of note: Patient is scheduled to see Leonard Mcrae at [facility] on 06-26-2024/10:30. Security Business Analyst Required: No Accompanied by: spouse Neelam Allergies No Known Allergies [No Known Allergies*] Allergy (Verified 06/25/24 09:02) Medication List - Last Reconciled 06/25/24 by Dion Sequeira MD acetaminophen (Tylenol) 650 mg (2 x 325 mg) PO Q6H PRN aripiprazole 2 mg PO BEDTIME azelastine 2 sprays intranasal BID folic acid 1 mg PO DAILY hydroxyzine pamoate 100 mg PO BEDTIME PRN loperamide (Anti-Diarrheal (loperamide)) 2 mg PO TID PRN omeprazole 20 mg PO BID@0630,1630 polyethylene glycol 3350 (Gavilax) 17 grams PO DAILY PRN HPI HPI one month post SBO: Details: He is here for follow-up after having diverting loop ileostomy after attempted right colon resection last 05/17/2024 He has been diagnosed to have 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 He has been seen by the [facility] surgeon in and is going to have a consultation with the [facility] Surgeon [facility] tomorrow for 2nd opinion The plan currently is for him to undergo neoadjuvant treatment and hopefully have [facility] surgery down the line if we had good response to neoadjuvant chemotherapy He says he seems to be doing well. He has good oral intake. His stoma has been functioning well. 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 Review of Systems Const Denies chills and Denies fever(s) Card Denies chest pain Resp Denies cough GI Details: Stoma with good output Denies abdominal pain Physical Exam Vital Signs: Last Vital Signs Pulse 71 06/25/24 09:01 BP 134/84 06/25/24 09:01 BMI result Body Mass Index 24.6 Const General: comfortable and no acute distress Resp Effort & Inspection: normal respiratory effort GI Other: Incisions well healed, loop ileostomy in the right side with good output Palpation (GI): Soft to palpation, not firm, nontender and no guarding Assessment & Plan Assessment & Plan (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 He was noted to have peritoneal carcinomatosis along with a locally advanced cancer in the cecum. He is to undergo neoadjuvant chemotherapy. He seeing the [facility] surgeon for opinion [facility] tomorrow He is having a port placed today and we will start with chemotherapy with Dr. Henson next week Overall he is doing well with regards to his ileostomy I will see him in the office in about another month. Coding Level of Care Code Global (84501) Diagnoses Peritoneal carcinomatosis C78.6
[2024-06-25 09:01] VITALS: BP 134/84; PULSE 71; BMI 24.6
--- OUTSIDE RECORDS SUMMARY | 2024-06-25 09:24 | XMS_ITS ---
Author Organization [address] [place] [address] [place] [phone] Phone Care Team Providers Care Stave Log Ripsaw Operator Name Role Phone Darrius Rangel MD Primary Care Provider [phone] Transitional Care Management Status:Closed (Closed) Start date:05/21/2024 Enrollment date:05/21/2024 Enrollment reason:Identified using hospital discharge data End date:06/21/2024 Close reason:Completed program Continued Care and Services Coordination
--- OUTSIDE RECORDS SUMMARY | 2024-06-25 09:24 | XMS_ITS | Encounter Summary ---
Author Organization [facility] Address [address] [place] [address] Care Team Providers Care Car Dealer Name Role Phone Darrius Rangel MD Primary Care Provider [phone] Reason for Visit * Reason Onset Date Comments special procedure 06/21/2024 Encounter Details Date Type Department Care Team ([facility] st Contact Info) Description 06/21/2024 Telephone Gastroenterology - [place] 175 [facility] 175 [facility] [address] [place] [address] Arabella Parra MD [address] [facility] [address] [place] [address] special procedure Social History Tobacco Use Types Packs/Day Years [...] care for your loved ones. For example, children's ministry director or elderly care for an older adult? [...] AM EST Sexual Orientation Not on file documented as of this encounter Progress Notes * Sincere Nieves - 06/25/2024 8:43 AM EDT 2nd attempt to schedule an appointment patient left message to call back * Kelley Lieberman MA - 06/21/2024 11:34 AM EDT Procedure canceled left message to call and reschedule * Wendy Corrales - 06/21/2024 11:10 AM EDT Please cancel appt. Call hospital, patient has surgery, rescheduled with patient documented in this encounter Plan of Treatment Upcoming Encounters Date Type Department Care Team (Late st Contact Info) Description 07/01/2024 9:20 AM EDT Office Visit Pulmonolgy - [place] [address] [place] [phone] Vilma Sepulveda NP [address] [place] [address] 07/25/2024 1:00 PM EDT Office Visit Gastroenterology - [place] [address] [facility] [address] [place] [phone] Crista Rodriguez PA [address] [place] [address] 08/01/2024 11:30 AM EDT Office Visit Adult Medicine [address] [phone] Darrius Rangel MD [address] [place] [address] documented as of this encounter Visit Diagnoses Not on filedocumented in this encounter Additional Health Concerns Assessment Noted Time PHQ-9 Depression Total Score: 0 06/11/19 25 7:08 PM EDT documented as of this encounter Care Teams Car Dealer Relationship Specialty Start Date End Date Darrius Rangel MD [address] [place] [phone] PCP - General Internal Medicine 12/29/23 documented as of this encounter
--- OUTSIDE RECORDS SUMMARY | 2024-06-25 09:24 | XMS_ITS | Clinical Summary ---
Author Organization 175 [facility] Address 175 [place] [address] Phone Care Team Providers Care Critical Care Unit Nurse Name Role Phone Darrius Rangel MD Primary Care Provider [phone] Allergies No known active allergies Medications ARIPiprazole [...] 04/30/2020 Obstructive sleep apnea 07/04/2018 Overview (12/03/2023): [facility] Home Polysomnogram: Date 06/30/2018; Wt 199#; BMI 31; MISBAH 79, AI 68; HI 11; Unclassified apneas 16; Obstructive apneas 481; Central apneas 93; Mixed apneas 18; hypopneas 99; no oximetry data. - Obstructive Sleep Apnea - severe; mostly obstructive with frequent central apneas and hypopneas by 2018 home polysomnogram. 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 V24, [facility] V28) 05/23/2024 Telephone Adult [address] [phone] Kelly Tilley RN 04/08/2024 Telephone Pulmonolgy - [address] [phone] Heavenly Tavares [place] DME request 04/02/2024 8:50 AM EST Office Visit Pulmonolgy [address] [phone] Vilma Sepulveda NP Obstructive sleep apnea (Primary Dx); Allergic rhinitis, unspecified seasonality, unspecified trigger; Gastroesophageal reflux disease, unspecified whether esophagitis present; Overweight (BMI 25.0-29.9) 03/28/2024 10:00 AM EST Office Visit Adult Medicine [address] [phone] Jessy Rivera PA Allergic rhinitis, unspecified seasonality, [...] your doctor or pharmacy? Not on file Financial Risk Answer Date Recorded How hard [...] care for your loved ones. For example, childbirth educator or elderly care for an older adult? [...] 9:20 AM EDT Office Visit Pulmonolgy - [place] [address] [phone] Vilma Sepulveda NP [address] [address] 07/25/2024 1:00 PM EDT Office Visit Gastroenterology - [place] 175 [facility] [address] [phone] Crista Rodriguez PA [address] [address] 08/01/2024 11:30 AM EDT Office Visit Adult Medicine [facility] [address] [place] [phone] Darrius Rangel MD [address] [place] [address] Health Maintenance Due Date Last Done Comments [...] Anatomical Region Laterality Modality Computed Tomogra phy Cee Haney DO IMG CT PROCEDURES Final Result * (ABNORMAL) Lipid panel with reflex to direct LDL (01/12/2024 9:08 AM EST) Cholesterol 196 0 - 200 mg/dL LAB CHEMISTRY METHOD 01/12/2024 12:45 PM EST [facility] Triglycerides 152(H) 0 - 150 mg/dL LAB CHEMISTRY METHOD 01/12/2024 12:45 PM [facility] HDL 45 >=40 mg/dL LAB CHEMISTRY METHOD 01/12/2024 12:45 PM [facility] LDL Calculated 121(H) 0 - 100 mg/dL LAB CHEMISTRY METHOD 01/12/2024 12:45 PM EST [facility] VLDL Cholesterol Allen 30.4 mg/dL LAB CHEMISTRY METHOD 01/12/2024 12:45 PM EST [facility] Non HDL Chol. (LDL+VLDL) 151(H) <145 mg/dL LAB CHEMISTRY METHOD 01/12/2024 12:45 PM EST [facility] Chol/HDL Ratio 4.4 0.0 - 4.4 LAB CHEMISTRY METHOD 01/12/2024 12:45 PM [facility] Blood Venous blood specimen / Unknown Venipuncture / Unknown 01/12/2024 9:08 AM EST 01/12/2024 9:08 AM EST Jessy RAYA LAB BLOOD ORDERABLES Fi nal Result [facility] [address] [place] [address], * Depression Screening (06/02/2023) Depression Screening ABSTRACTED [...] Insurance MEDICARE [place]ICA[place] - [place] Care Teams Critical Care Unit Nurse Relationship Specialty Start Date End Date Darrius Rangel MD [address] [place] [id number] PCP - General Internal Medicine 12/29/23
== END 2024-06-25 09:41 | disposition home or self-care (01) ==
LOC: HO.HGS 08:55
PROVIDERS: PCP Internal Medicine; Visit Provider Surgery
DX: C78.6 Secondary malignant neoplasm of retroperitoneum and peritoneum (principal)
CPT/HCPCS: 99024

== ENCOUNTER 2024-06-25 11:27 | Day surgery (SDC) | payer MEDICARE, MEDICAID, SELFPAY ==
--- OUTSIDE RECORDS SUMMARY | 2024-06-19 09:22 | XMS_ITS | Clinical Summary ---
Author Organization 175 [facility] Address [address] [place] [address] Phone Care Team Providers Care Insurance Salesman Name Role Phone Darrius Rangel MD Primary Care Provider [phone] Allergies No known active allergies Medications ARIPiprazole [...] by mouth 1 (one) time each day. 01/24/20 22 Active hydrOXYzine pamoate (VISTARIL) 50 mg capsule TAKE 2 CAPSULES BY MOUTH EVERY DAY AT BEDTIME 04/23/19 24 Active polyethylene glycol (MIRALAX) 17 gram packet Take 17 g by mouth 1 (one) time each day. 01/10/20 23 Active simethicone (Gas Relief, simethicone,) 180 mg capsule Take 1 capsule (180 mg total) by mouth 3 (three) times a day. Take 1 Capsule by mouth 3 times daily as needed (gas, blotaing Active Gavilax 17 gram/dose oral powder MIX 1 CAPFUL (17GM) INTO 8OZ OF LIQUID AND DRINK BY MOUTH 1-2 TIMES DAILY NEEDED FOR CONSTIPATION 510 g 3 02/05/20 24 Active Additional Information Patient not taking.Reported on 06/13/2024 loratadine (CLARITIN) 10 mg tablet TAKE 1 TABLET BY MOUTH EVERY DAY 90 tablet 1 03/26/19 25 Active Additional Information Patient not taking.Reported on 06/13/2024 azelastine (ASTELIN) 137 mcg (0.1 %) nasal sprayIndication s:Allergic rhinitis, unspecified seasonality, unspecified trigger Administer 2 sprays into each nostril 2 (two) times a day. Use in each nostril as directed 30 mL 2 04/02/19 25 026 Active Additional Information Patient not taking.Reported on 06/13/2024 omeprazole (PriLOSEC) [address] capsule TAKE 1 CAPSULE BY MOUTH TWICE A DAY 180 capsule 1 05/02/19 25 Active loperamide (IMODIUM) 2 mg capsule Take 1 capsule (2 mg total) by mouth 1 (one) time each day. 90 capsule 1 06/14/19 25 Active loperamide (IMODIUM) 2 mg capsule Take 1 capsule (2 mg total) by mouth 1 (one) time each day. 05/22/19 25 025 Discontin ued(Reord er) Active Problems Problem Noted Date Diagnosed Date Current moderate episode of major depressive disorder without prior episode (CMS/HCC V24, CMS/HCC V28) 09/21/2020 Adjustment disorder with mixed anxiety and depre ssed mood 04/30/2020 Obstructive sleep apnea 07/04/2018 Overview (12/03/2023): [facility] Home Polysomnogram: Date 06/30/2018; Wt 199#; BMI 31; MISBAH 79, AI 68; HI 11; Unclassified apneas 16; Obstructive apneas 481; Central apneas 93; Mixed apneas 18; hypopneas 99; no oximetry data. - Obstructive Sleep Apnea - severe; mostly obstructive with frequent central apneas and hypopneas by 2018 home polysomnogram. 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9) 03/28/2024 10:00 AM EST Office Visit Adult [address] [phone] Jessy Rivera PA Allergic rhinitis, unspecified seasonality, [...] your doctor or pharmacy? Not on file 11/07/2 024 Financial Risk Answer Date Recorded How [...] care for your loved ones. For example, childcare teacher or elderly care for an older [...] Sign Reading Time Taken Comments Blood Pressure 96/59 06/13/2024 1:25 PM EDT Pulse 77 06/13/2024 1:25 PM EDT Temperature 36.2 ??C (97.2 ??F) 06/13/2024 1:25 PM ED T Respiratory Rate 15 06/13/2024 1:25 PM EDT Oxygen Saturation 98% 06/13/2024 1:25 PM EDT Inhaled Oxygen Concentration - - Weight 73.9 kg (163 lb) 06/13/2024 1:25 PM EDT Height 170.2 cm (5' 7.01 ) 06/13/2024 1:25 PM ED T Body Mass Index 25.52 06/13/2024 1:25 PM EDT Plan of Treatment Upcoming Encounters Date Type Department Care Team (Late st Contact Info) Description 07/01/2024 9:10 AM EDT Office Visit Pulmonolgy - [place] [address] [phone] Vilma Sepulveda NP [address] [address] 07/08/2024 12:00 PM EDT Appointment [facility] Endoscopy [address] [place] [phone] Abiodun Villa DO [address] [address] 07/25/2024 1:00 PM EDT Office Visit Gastroenterology - [place] [address] [facility] [address] [phone] Crista Rodriguez PA [address] [address] 08/01/2024 11:30 AM EDT Office Visit Adult Medicine [address] [phone] Darrius Rangel MD [address] [place] [address] Health Maintenance Due Date Last Done Comments Pneumococcal Vaccine: 50+ Years (1 of 2 - PCV) 1983 Pneumococcal Vaccine: Pediatrics (0 to 5 Years) and At-Risk Patients (6 to 64 Years) (1 of 2 - PCV) 1983 HIV Screening 02/05/2022 Medicare Annual Wellness Visit 02/05/2022 COVID-19 Vaccine ( season) 2024 11/26/2023, 11/25/2022, 11/07/2021, Additional history exists Colorectal Cancer Screening: Colonoscopy 06/30/2024 06/30/2014 Social Influencers of Health Screening 05/22/2025 05/22/2024 Depression Screening 06/10/2025 06/10/2024, 06/02/19 Cholesterol Screening (Lipid Panel) 01/11/2029 01/12/2024, 09/26/2023, 09/26/2023 DTaP,Tdap,and Td Vaccines (4 - Td or Tdap) 10/02/2032 10/02/2022, 06/05/2018, 06/20/2006 RSV Immunization Adult Patients (1 - 1-dose 75+ series) 2039 Hepatitis C Screening Completed 06/05/2018 Zoster Vaccines Completed 05/03/2020, 03/03/2020 Influenza Vaccine Completed 11/26/2023, , 11/07/2021, Additional [...] age to complete this topic Meningococcal B Vaccine Aged Out No l onger eligible based on patient's age to complete this topic RSV Immunization Patients Under 20 months Aged Out No longer eligible based on patient's age to complete this topic Varicella Vaccines Aged Out No longer eligible based on patient's age to complete this topic Procedures Procedure Name Priority Date/Time Associated Diagnosis Comments EXTERNAL CT REPORT Routine 06/14/2024 11 :21 AM EDT LIPID PANEL WITH REFLEX TO DIRECT LDL Routine 01/12/2024 9:08 AM EST Routine history and physical examination of adult DEPRESSION SCREENING Routine 06/02/2023 HEPATITIS C SCREENING Routine 06/05/2018 COLONOSCOPY Routine 06/30/2014 from Last 3 Months or Most Recently Relevant to Health Maintenance Results * External CT Report (06/14/2024 11:21 AM EDT) Anatomical Region Laterality Modality Computed Tomogra phy us Cee Haney DO IMG CT PROCEDURES Final Result * (ABNORMAL) Lipid panel with reflex to direct LDL (01/12/2024 9:08 AM EST) Cholesterol 196 0 - 200 mg/dL LAB CHEMISTRY METHOD 01/12/2024 12:45 PM EST [facility] Triglycerides 152(H) 0 - 150 mg/dL LAB CHEMISTRY METHOD 01/12/2024 12:45 PM EST [facility] HDL 45 >=40 mg/dL LAB CHEMISTRY METHOD 01/12/2024 12:45 PM EST [facility] LDL Calculated 121(H) 0 - 100 mg/dL LAB CHEMISTRY METHOD 01/12/2024 12:45 PM EST [facility] VLDL Cholesterol Allen 30.4 mg/dL LAB CHEMISTRY METHOD 01/12/2024 12:45 PM EST [facility] Non HDL Chol. (LDL+VLDL) 151(H) <145 mg/dL LAB CHEMISTRY METHOD 01/12/2024 12:45 PM EST [facility] Chol/HDL Ratio 4.4 0.0 - 4.4 LAB CHEMISTRY METHOD 01/12/2024 12:45 PM [facility] Blood Venous blood specimen / Unknown Venipuncture / Unknown 01/12/2024 9:08 AM EST 01/12/2024 9:08 AM EST us Jessy RAYA LAB BLOOD ORDERABLES Fi nal Result [facility] [address] [place] [address], [place] [phone] * Depression Screening (06/02/2023) Depression Screening ABSTRACTED Historical Provider HEALTH MAINTENANCE Final Result * Hepatitis C Screening (06/05/2018) Hepatitis C Screening ABSTRACTED Historical Provider HEALTH MAINTENANCE Final Result * Colonoscopy (06/30/2014) Colonoscopy NO INTERPRETATION , ABSTRACTED Anatomical Region Laterality Modality Other Historical Provider HEALTH MAINTENANCE Final Result from Last 3 Months or Most Recently Relevant to Health Maintenance Insurance MEDICARE MEDICAID - [place] Care Teams Insurance Salesman Relationship Specialty Start Date End Date Darrius Rangel MD [address] [place] [phone] PCP - General Internal Medicine 12/29/23
--- OUTSIDE RECORDS SUMMARY | 2024-06-19 09:22 | XMS_ITS ---
Author Organization [address] [place] [address] [place] [phone] Phone Care Team Providers Care Tube Molder [employer] Name Role Phone Darrius Rangel MD Primary Care Provider [phone] Transitional Care Management Status:Ongoing (Active) Start date:05/21/2024 Enrollment date:05/21/2024 Enrollment reason:Identified using hospital discharge data Case Team Name Relationship Phone Elliot Crockett LPN Care Manager(Responsible Staff) Continued Care and Services Coordination
[2024-06-25] VITALS (18 sets, daily range): BP systolic 113–135; BP diastolic 66–81; PULSE 69–87; RESP 13–23; TEMP 36.1–36.8; O2SAT 96–100; BMI 24.6
--- NOTE | ~2024-06-25 | IR_ITS ---
CLINICAL HISTORY: Peritoneal cancer. The patient presents to interventional radiology for placement of a port for chemotherapy. PROCEDURES: 1. Real-time ultrasound-guided access into the right internal jugular vein after documentation of selected vessel patency, and permanent image storing in the patient records. 2. Placement of a 6.6 Lebanese single-lumen port. CLINICIAN: Gerald Gamez NP MEDICATIONS: - Versed , Fentanyl , Lidocaine 1% SQ -Antibiotics: Ancef 2g -For additional details, please see nursing flowsheet. Complications: None. Estimated blood loss: <5 ml Specimens: None. Contrast: None. Fluoroscopy time: 0.4 min MODERATE SEDATION TIME: 38 min PROCEDURE NOTE: The procedure, risks, benefits, and alternatives were carefully explained to the patient and written informed consent was obtained. The patient was placed supine on the fluoroscopy table. A timeout was performed. The right neck and chest was prepped and draped in usual sterile fashion. Maximum barrier technique was utilized. Local anesthesia was administered to the access site with 1% lidocaine. Under ultrasound guidance, the right internal jugular vein was accessed with a 5 fr micropuncture set. A 0.035 in wire was advanced into the IVC. A peel-away sheath was advanced over the wire and into the SVC, and the wire was removed. Next, subcutaneous lidocaine was administered to the chest. The port pocket was created after the skin incision, utilizing blunt dissection. Using blunt dissection, a subcutaneous tunnel was created that connects from the port pocket to the venotomy site. Through the peel-away sheath, the 6.6 Lebanese port catheter was placed. The catheter position was verified with fluoroscopy to be at the superior vena cava/right atrial junction. The port was connected to the catheter and was placed in the pocket. The port incision site was closed with interrupted 3-0 Vicryl subcutaneous sutures and surgical glue. Prior to closing the skin, 1 g of Ancef solution was placed in the pocket. The port was tested, flushed, and packed with heparin per routine protocol. The patient tolerated the procedure well. The patient was stable after the procedure and was transferred to the PACU. The procedure was performed under moderate sedation and with a dedicated nurse with continuous monitoring of vital signs. A permanent image of the ultrasound the neck and fluoroscopic image of the chest was saved and sent to PACS. FINDINGS: 1. Patent right internal jugular vein 2. Placement of a 6.6 Lebanese single lumen port. 3. Port flushes and aspirates very well with a 10 mL syringe. No pneumothorax. IR/IR cvc insert tunnel w prt/hearing therapist IMPRESSION: Placement of a 6.6 Lebanese single-lumen port. PLAN: - The patient will be discharged home when stable by sedation protocol. - Port may be used immediately. This procedure was performed by Gerald Gamez NP and directly supervised by Jimbo Chandler MD. Electronically signed by: Dorian Chandler MD 07/04/2024 01:55 PM EDT
[2024-06-25] MEDS: ceFAZolin Sodium/Dextrose,Iso 2 GM/50 ML PIGGYBACK IV (13:30)
[2024-06-25] MEDS: fentaNYL citrate/PF 100 MCG/2 ML VIAL 50 MCG IVPUSH (13:53)
[2024-06-25] MEDS: Midazolam HCl 2 MG/2 ML VIAL 1 MG IVPUSH (13:53)
== END 2024-06-25 15:55 | disposition home or self-care (01) ==
PROVIDERS: PCP Internal Medicine; Visit Provider Internal Medicine Medical Oncology
DX: Z45.2 Encounter for adjustment and management of vascular access device (principal); C78.6 Secondary malignant neoplasm of retroperitoneum and peritoneum; K91.30 Postprocedural intestinal obstruction, unspecified as to partial versus complete; Z93.2 Ileostomy status; K63.89 Other specified diseases of intestine; F41.9 Anxiety disorder, unspecified; G47.30 Sleep apnea, unspecified; Z79.899 Other long term (current) drug therapy; Z99.89 Dependence on other enabling machines and devices; Z98.890 Other specified postprocedural states
CPT/HCPCS: 36561; 99152; 99212; C1769; C1788; J0690; J1642; J1644; J2003; J2250; J3010; Q9967

== ENCOUNTER → 2024-06-25 12:45 | Outpatient (BNV) | payer MEDICARE, MEDICAID, SELFPAY | PROVIDERS: PCP Internal Medicine | DX: C48.2 Malignant neoplasm of peritoneum, unspecified (principal) | CPT/HCPCS: 36561; 76937; 77001; 99152 ==

== ENCOUNTER → 2024-06-28 15:20 | Outpatient (BNV) | payer MEDICARE, MEDICAID, SELFPAY | PROVIDERS: PCP Internal Medicine; Visit Provider Internal Medicine Medical Oncology | DX: C78.6 Secondary malignant neoplasm of retroperitoneum and peritoneum (principal) | CPT/HCPCS: 99213 ==

== ENCOUNTER 2024-07-01 14:08 | Outpatient (REF) | payer MEDICARE, MEDICAID, SELFPAY ==
--- NOTE | ~2024-07-01 | CT_ITS ---
EXAMINATION: CT CHEST WITHOUT CONTRAST CLINICAL INFORMATION: Peritoneal carcinomatosis, initial staging. COMPARISON: No prior CT. Chest radiograph 12/19/2022. TECHNIQUE: Multidetector volumetric CT imaging of the chest was done. Axial MIP volume rendering provided. Sagittal and coronal reformatted images were obtained. This CT examination was performed using dose optimization techniques as appropriate, variously including the following: *Automated exposure control *Adjustment of mA and/or kV according to patient size (this includes techniques or standardized protocols for targeted exams where dose is matched to indication/reason for exam; i.e. extremities or head) *Use of iterative reconstruction technique FINDINGS: Right-sided chest port in place, with tip terminating in the right atrium. This is well positioned. LUNGS: 3 mm calcified nodule in the right major fissure (series 4, image 66). 3 mm linear type nodule in the lateral major fissure, likely intrapulmonary lymph node (series 4, image 74). 3 mm nodule in the minor fissure (series 4, image 81), likely intrapulmonary lymph node. 4 mm nodule in the inferior major fissure (series 4, image 95), likely intrapulmonary lymph node. 4 mm pleural-based nodule, with appearance of probable scar, lateral right lower lobe (series 4, image 79). No suspicious nodules evident. Lungs are clear with no consolidations or abnormal groundglass opacities. Small airways appear normal. There is no pleural effusion or pneumothorax. MEDIASTINUM: Normal thyroid gland. No abnormal lymphadenopathy or mass. Aorta is normal in caliber and course, no significant atheromatous change. Main pulmonary artery is normal. Heart size is normal. No pericardial effusion. Esophagus demonstrate no abnormalities. CORONARY ARTERY CALCIFICATION: None visualized on this study. PLEURA: There is no pleural effusion. No pleural mass or thickening. AXILLA/CHEST WALL: No abnormal lymphadenopathy or mass. Right chest wall port. UPPER ABDOMEN: No abnormalities identified of the imaged upper abdominal contents. OSSEOUS STRUCTURES: There is no suspicious lytic or blastic bone lesion identified. CT/CT chest wo IV con IMPRESSION: 1. There are no suspicious pulmonary nodules or evidence of abnormal lymphadenopathy. Lungs are clear with no active lung disease identified. 2. There are a few scattered pleural-based fissural nodules, as discussed above, measuring up to 4 mm, the majority likely representing intrapulmonary lymph nodes. Follow-up with attention to these findings, follow-up interval per oncology. 3. Ancillary findings as discussed. Electronically signed by: Dereck Krause MD 07/01/2024 02:53 PM EDT
--- OUTSIDE RECORDS SUMMARY | 2024-07-01 15:42 | XMS_ITS | Encounter Summary ---
Author Organization [facility] Address [address] [place] [address] Care Team Providers Care Drone Operator Name Role Phone Darrius Rangel MD Primary Care Provider [phone] Reason for Visit * Reason Onset Date Comments special procedure 06/21/2024 Encounter Details Date Type Department Care Team ([facility] st Contact Info) Description 06/21/2024 Telephone Gastroenterology - [place] 175 [facility] 175 [facility] [address] [place] [address] Arabella Parra MD [address] [facility] [address] [place] [address] special procedure Social History Tobacco Use Types [...] for your loved ones. For example, child life therapist or elderly care for an older adult? [...] encounter Progress Notes * Sincere Nieves - 06/27/2024 9:02 AM EDT 3rd attempt to schedule an appointment patient left message to call back letter sent. * Sincere Nieves - 06/25/2024 8:43 AM [...] Care Team (Late st Contact Info) Description 07/25/2024 1:00 PM EDT Office Visit Gastroenterology - [place] 175 [facility] [address] [phone] Crista Rodriguez PA [address] [address] 08/01/2024 11:30 AM EDT Office Visit Adult Medicine [facility] [address] [place] [phone] Darrius Rangel MD [address] [place] [address] 09/20/2024 11:50 AM EDT Office Visit Pulmonolgy - [place] [address] [phone] Vilma Sepulveda NP [address] [address] documented as of this encounter Visit Diagnoses Not on filedocumented in this encounter Additional Health Concerns Assessment Noted Time PHQ-9 Depression Total Score: 0 06/11/19 25 7:08 PM EDT documented as of this encounter Care Teams Drone Operator Relationship Specialty Start Date End Date Darrius Rangel MD [address] [place] [phone] PCP - General Internal Medicine 12/29/23 documented as of this encounter
--- OUTSIDE RECORDS SUMMARY | 2024-07-01 15:42 | XMS_ITS | Clinical Summary ---
Author Organization 175 [facility] Address 175 [place] [address] Phone Care Team Providers Care Internal Audit Senior Manager Name Role Phone Darrius Rangel MD Primary Care Provider [phone] Allergies No known active allergies Medications ARIPiprazole [...] 04/30/2020 Obstructive sleep apnea 07/04/2018 Overview (12/03/2023): [facility] Home Polysomnogram: Date 06/30/2018; Wt 199#; BMI 31; MISBAH 79, AI 68; HI 11; Unclassified apneas 16; Obstructive apneas 481; Central apneas 93; Mixed apneas 18; hypopneas 99; no oximetry data. - Obstructive Sleep Apnea - severe; mostly obstructive with frequent central apneas and hypopneas by [address] 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 For example, childhood development teacher or elderly care for an [...] 1:00 PM EDT Office Visit Gastroenterology - [place] [address] [facility] [address] [place] [phone] Crista Rodriguez PA [address] [place] [address] 08/01/2024 11:30 AM EDT Office Visit Adult Medicine [facility] [address] [place] [address] Darrius Rangel MD [address] [place] [address] 09/20/2024 11:50 AM EDT Office Visit Pulmonolgy - [place] 175 [facility] [address] [place] [phone] Vilma Sepulveda NP 175 [facility] 200 [place] [address] Health Maintenance Due Date Last Done Comments [...] 05/22/2025 05/22/2024 Depression Screening 06/10/2025 06/10/2024, 06/02/19 24 Cholesterol Screening (Lipid Panel) 01/11/2029 01/12/2024, 09/26/2023, [...] Modality Computed Tomogra phy Cee Haney DO [facility] CT PROCEDURES Final Result * (ABNORMAL) Lipid panel with reflex to direct LDL (01/12/2024 9:08 AM EST) Cholesterol 196 0 - 200 mg/dL LAB CHEMISTRY METHOD 01/12/2024 12:45 PM EST [facility] Triglycerides 152(H) 0 - 150 mg/dL LAB CHEMISTRY METHOD 01/12/2024 12:45 PM EST [facility] HDL 45 >=40 mg/dL LAB CHEMISTRY METHOD 01/12/2024 12:45 PM EST [facility] LDL Calculated 121(H) 0 - 100 mg/dL LAB CHEMISTRY METHOD 01/12/2024 12:45 PM [facility] VLDL Cholesterol Allen 30.4 mg/dL LAB CHEMISTRY METHOD 01/12/2024 12:45 PM EST [facility] Non HDL Chol. (LDL+VLDL) 151(H) <145 mg/dL LAB CHEMISTRY METHOD 01/12/2024 12:45 PM [facility] Chol/HDL Ratio 4.4 0.0 - 4.4 LAB CHEMISTRY METHOD 01/12/2024 12:45 PM [facility] Blood Venous blood specimen / Unknown Venipuncture / Unknown 01/12/2024 9:08 AM EST 01/12/2024 9:08 AM EST Jessy RAYA LAB BLOOD ORDERABLES Fi nal Result [facility] [address] [place] [address], * Depression Screening (06/02/2023) Depression Screening ABSTRACTED Historical Provider HEALTH MAINTENANCE Final Result * Hepatitis C Screening (06/05/2018) Pathologist [facility] Hepatitis C Screening ABSTRACTED Historical Provider HEALTH MAINTENANCE Final Result * Colonoscopy (06/30/2014) Pathologist [facility] Colonoscopy NO INTERPRETATION , ABSTRACTED Anatomical Region Laterality Modality Other Historical Provider HEALTH MAINTENANCE Final Result from Last 3 Months or Most Recently Relevant to Health Maintenance Insurance MEDICARE [place]ICAID - [place] Care Teams Internal Audit Senior Manager Relationship Specialty Start Date End Date Darrius Rangel MD [address] [place] [id number] PCP - General Internal Medicine 12/29/23
== END 2024-07-01 14:09 | disposition home or self-care (01) ==
LOC: HO.CT 14:08
PROVIDERS: PCP Internal Medicine; Visit Provider Internal Medicine Medical Oncology
DX: C78.6 Secondary malignant neoplasm of retroperitoneum and peritoneum (principal)
CPT/HCPCS: 71250

== ENCOUNTER → 2024-07-01 14:10 | Outpatient (BNV) | payer MEDICARE, MEDICAID, SELFPAY | PROVIDERS: PCP Internal Medicine; Visit Provider Radiology Diagnostic Radiology | DX: C78.6 Secondary malignant neoplasm of retroperitoneum and peritoneum (principal); C18.0 Malignant neoplasm of cecum | CPT/HCPCS: 71250 ==

== ENCOUNTER 2024-07-25 09:59 | Outpatient (AMB) | payer MEDICARE, MEDICAID, SELFPAY ==
--- NOTE | 2024-07-25 10:02 | A.OFFVIS_ITS ---
Vital Signs 07/25/24 10:13 Height 58 ft Weight 161 lb BMI 0.2 BP 131/75 Blood Pressure Location Lt brachial Position Sitting Pulse 66 Intake Visit Reasons: one month post SBO Intake Note: Patient is seen in office for one month follow up visit, post ileostomy. Patient c/o: started 2 new mediation Rx by Oncologist, admits to right shoulder pain was prescribe cream has yet to use it, sensitive to cold and twinkling in the fingers Health Insurance Assessor Required: No Accompanied by: Family/Other Allergies No Known Allergies [No Known Allergies*] Allergy (Verified 07/25/24 10:12) HPI HPI one month post SBO: Details: Patient reports he is doing well. He currently denies abdominal pain. Reports he just had his 2nd chemotherapy session this week, this went better than the initial session. He reports being seen by surgeon at [facility] regarding his plan for removal of the mass and ileostomy reversal. There was no plan at this point but they plan to follow-up in August once he has finished chemotherapy to re-evaluate and discuss plans for surgery. They also recommended he have a chest CT which he had completed on 07/01/2024. Put stoma output has been good, using Imodium after chemotherapy sessions due to higher output via stoma. The patient reports he had some difficulty adjusting to caring for this stoma however he is feeling more comfortable now after the nursing staff at [facility] gave him some tips. He reports he is tolerating diet well and has been trying to stay hydrated as per Dr. Sequeira's recommendations. He denies fever chills weight loss. He reports he has been ambulating as tolerated, has been going for walks. He does report some new tingling in his fingers since starting chemotherapy. He states that that usually happens when going outside, he reports he usually just covers his hands to warm them up which improves his symptoms. He also reports shoulder pain, he was seen and prescribed a topical diclofenac which he has not used, reports he only needs to use Tylenol as needed for managing his pain for sleeping. He does not report any other concerns. 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 Loop ileostomy on right side, good output stoma is beefy red. Inspection: No distended Palpation (GI): Soft to palpation, not firm, nontender, no guarding and not rigid Neuro Other: Sensation fingers intact. Normal capillary refill. 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 Patient is doing well overall. Patient has just completed his 2nd round of chemotherapy. He is tolerating it well so far. He reports following up with [facility] surgeon at [facility], who plans for removal of the mass after completing 3 months of chemotherapy. He states that they hope to be able to reverse the ileostomy at this time as well. He is following up with the surgeon in August to discuss the plan. He is doing well in terms of his ileostomy, output is good, using Imodium as needed for higher output after chemotherapy. Abdominal exam is soft and benign. Incision sites healing well. In regards to the patient's shoulder pain numbness and tingling in his fingers I recommended he follow-up with orthopedics if this pain continues to be bothersome. Patient will return in 1 month to follow up with Dr. Sequeira. He can return sooner with any concerns prior, Coding Level of Care Code Global (35963) Diagnoses Peritoneal carcinomatosis C78.6
[2024-07-25 10:13] VITALS: BP 131/75; PULSE 66
--- OUTSIDE RECORDS SUMMARY | 2024-07-25 10:20 | XMS_ITS | Clinical Summary ---
Author Organization 175 [facility] Address 175 [place] [address] Phone Care Team Providers Care Sales Force Administrator Name Role Phone Darrius Rangel MD Primary Care Provider [phone] Allergies No known active allergies Medications ARIPiprazole [...] FOR CONSTIPATION 510 g 3 4 Active Additional Information Patient not taking.Reported on 06/13/2024 loratadine (CLARITIN) 10 mg tablet TAKE 1 TABLET BY MOUTH EVERY DAY 90 tablet 1 5 Active Additional Information Patient not taking.Reported on 06/13/2024 azelastine (ASTELIN) 137 mcg (0.1 %) nasal sprayIndication s:Allergic rhinitis, unspecified seasonality, unspecified trigger Administer 2 sprays into each nostril 2 (two) times a day. Use in each nostril as directed 30 mL 2 5 026 Active Additional Information Patient not taking.Reported on 06/13/2024 omeprazole (PriLOSEC) [address] capsule TAKE 1 CAPSULE BY MOUTH TWICE A DAY 180 capsule 1 Active loperamide (IMODIUM) 2 mg capsule Take 1 capsule (2 mg total) by mouth 1 (one) time each day. 90 capsule 1 5 Active Active Problems Problem Noted Date Diagnosed Date Current moderate episode of major depressive disorder without prior episode ([facility] V24, [facility] V28) 09/21/2020 Adjustment disorder with mixed anxiety and depre ssed mood 04/30/2020 Obstructive sleep apnea 07/04/2018 Overview (12/03/2023): [facility] Home Polysomnogram: Date 06/30/2018; Wt 199#; BMI 31; MISBAH 79, AI 68; HI 11; Unclassified apneas 16; Obstructive apneas 481; Central apneas 93; Mixed apneas 18; hypopneas 99; no oximetry data. - Obstructive Sleep Apnea - severe; mostly obstructive with frequent central apneas and hypopneas by 2018 home polysomnogram. [facility] Home Sleep Apnea Test: Date [...] Care Team Description 06/21/2024 Telephone Gastroenterology - [place] [address] [facility] [address] [place] [address] Arabella Parra MD special procedure 06/13/2024 1:30 PM EDT Office Visit Adult Medicine [address] [address] Darrius Rangel MD Mucinous adenocarcinoma ([facility] V24, [facility]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); S/P ileostomy ([facility] V24, [facility] V28) 05/23/2024 Telephone Adult Medicine [address] [phone] Kelly Tilley RN from Last 3 Months Immunizations Name Administration [...] your loved ones. For example, child development consultant or elderly care for an older adult? [...] Care Team (Late st Contact Info) Description 08/01/2024 11:30 AM EDT Office Visit Adult Medicine [address] [phone] Darrius Rangel MD [address] [place] [address] 09/20/2024 11:50 AM EDT [facility] [address] [facility] [address] [place] [phone] Vilma Sepulveda NP 175 [facility] 200 [place] [address] 09/26/2024 11:30 AM EDT Office Visit Gastroenterology - [place] [address] [facility] [address] [place] [address] Crista Rodriguez PA [address] [place] [address] Health Maintenance Due Date Last Done Comments [...] LAB CHEMISTRY METHOD 01/12/2024 12:45 PM EST [facility] Triglycerides 152(H) 0 - 150 mg/dL LAB CHEMISTRY METHOD 01/12/2024 12:45 PM EST [facility] HDL 45 >=40 mg/dL LAB CHEMISTRY METHOD 01/12/2024 12:45 PM EST [facility] LDL Calculated 121(H) 0 - 100 mg/dL LAB CHEMISTRY METHOD 01/12/2024 12:45 PM [facility] VLDL Cholesterol Allen 30.4 mg/dL LAB CHEMISTRY METHOD 01/12/2024 12:45 PM EST [facility] Non HDL Chol. (LDL+VLDL) 151(H) <145 mg/dL LAB CHEMISTRY METHOD 01/12/2024 12:45 PM EST [facility] Chol/HDL Ratio 4.4 0.0 - 4.4 LAB CHEMISTRY METHOD 01/12/2024 12:45 PM EST [facility] Blood Venous blood specimen / Unknown Venipuncture / Unknown 01/12/2024 9:08 AM EST 01/12/2024 9:08 AM EST Jessy RAYA LAB BLOOD ORDERABLES Fi nal Result [facility] [address] [place] [address], * Depression Screening (06/02/2023) Depression Screening ABSTRACTED Historical Provider HEALTH MAINTENANCE Final Result * Hepatitis C Screening (06/05/2018) Pathologist [facility] Hepatitis C Screening ABSTRACTED [facility] Provider HEALTH MAINTENANCE Final Result * Colonoscopy (06/30/2014) Pathologist [facility] Colonoscopy NO INTERPRETATION , ABSTRACTED Anatomical Region Laterality Modality Other Historical Provider HEALTH MAINTENANCE Final Result from Last 3 Months or Most Recently Relevant to Health Maintenance Insurance MEDICARE MEDICAID - [place] Care Teams Sales Force Administrator Relationship Specialty Start Date End Date Darrius Rangel MD [address] [place] [phone] PCP - General Internal Medicine 12/29/23
== END 2024-07-25 10:38 | disposition home or self-care (01) ==
LOC: HO.HGS 09:59
PROVIDERS: PCP Internal Medicine
DX: C78.6 Secondary malignant neoplasm of retroperitoneum and peritoneum (principal)
CPT/HCPCS: 99024

== ENCOUNTER → 2024-07-25 09:59 | Outpatient (BNVA) | payer MEDICARE, MEDICAID, SELFPAY | PROVIDERS: PCP Internal Medicine | DX: C78.6 Secondary malignant neoplasm of retroperitoneum and peritoneum (principal) | CPT/HCPCS: 99212 ==

== ENCOUNTER 2024-08-17 09:23 | Outpatient (REF) | payer MEDICARE, MEDICAID, SELFPAY ==
--- OUTSIDE RECORDS SUMMARY | 2024-08-17 09:25 | XMS_ITS | Clinical Summary ---
Author Organization 175 [facility] Address [address] [place] [address] Phone Care Team Providers Care Paymaster Of Purses Name Role Phone Darrius Rangel MD Primary Care Provider [phone] Allergies No known active allergies Medications ARIPiprazole [...] Active hydrOXYzine pamoate (VISTARIL) 50 mg capsule 4 Active polyethylene glycol (MIRALAX) 17 gram [...] Active Additional Information Patient not taking.Reported on 08/01/2024 loratadine (CLARITIN) 10 mg tablet TAKE 1 [...] A DAY 180 capsule 1 5 Active loperamide (IMODIUM) 2 mg capsule Take 1 capsule (2 mg total) by mouth 1 (one) time each day. 90 capsule 1 5 Active dexAMETHasone (DECADRON) 4 mg tablet TAKE 1 TABLET BY MOUTH 2 TIMES A DAY DAYS 2 AND 3 OF CHEMOTHERAPY EVERY 2 WEEKS. 5 Active Active Problems Problem Noted Date Diagnosed Date Current moderate episode of major depressive disorder without prior episode ([facility] V24, [facility] V28) 09/21/2020 Adjustment disorder with mixed anxiety and depre ssed mood 04/30/2020 Obstructive sleep apnea 07/04/2018 Overview (12/03/2023): [facility] Home Polysomnogram: Date 06/30/2018; Wt 199#; BMI 31; MISBAH 79, AI 68; HI 11; Unclassified apneas 16; Obstructive apneas 481; Central apneas 93; Mixed apneas 18; hypopneas 99; no oximetry data. - Obstructive Sleep Apnea - severe; mostly obstructive with frequent central apneas and hypopneas by 2018 home polysomnogram. [facility] Home Sleep Apnea Test: Date [...] Encounters Date Type Department Care Team Description 08/01/2024 11:30 AM EDT Office Visit [address] [phone] Darrius Ranegl MD Mucinous adenocarcinoma ([facility]/HCC V24, CMS/HCC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); S/P ileostomy ([facility]/HCC V24, CMS/HCC V28); Adjustment disorder with mixed anxiety and depressed mood; Depression, unspecified depression type 07/30/2024 Billing Patient Not Present [address] [phone] Darrius Rangel MD 06/21/[address] [facility] [address] [place] [address] Arabella Parra MD special procedure 06/13/2024 1:30 PM EDT Office Visit [address] [address] Darrius Rangel MD Mucinous adenocarcinoma ([facility]/HCC V24, CMS/HCC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); S/P ileostomy ([facility]/HCC V24, CMS/HCC V28) 05/23/[address] [phone] Kelly Tilley RN from Last 3 Months [...] Date Smoking Tobacco: Never Smokeless Tobacco: Never Tobacco Cessation:Counseling Given: Not Answered Alcohol Use Standard Drinks/Week Comments Not Currently [...] care for your loved ones. For example, early childhood education instructor or elderly care for an older adult? [...] Sign Reading Time Taken Comments Blood Pressure 118/82 08/01/2024 11:30 AM EDT Pulse 78 08/01/2024 11:30 AM EDT Temperature 36.2 C (97.2 F) 06/13/2024 1:25 PM EDT Respiratory Rate 14 08/01/2024 11:30 AM EDT Oxygen Saturation 98% 06/13/2024 1:25 PM EDT Inhaled Oxygen Concentration - - Weight 71.8 kg (158 lb 6.4 oz) 08/01/2024 11:30 AM EDT Height 170.2 cm (5' 7.01 ) 06/13/2024 1:25 PM ED T Body Mass Index 24.8 06/13/2024 1:25 PM EDT Plan of Treatment Upcoming Encounters Date Type Department Care Team (Late st Contact Info) Description 09/20/2024 11:50 AM EDT Office Visit Pulmonolgy - [place] 175 [facility] [address] [place] [phone] Vilma Sepulveda NP 175 [facility] 200 [place] [address] 09/26/2024 11:30 AM EDT Office Visit Gastroenterology - [place] [address] [phone] Crista Rodriguez PA [address] [address] 03/10/2025 11:30 AM EST Office Visit Adult Medicine [facility] [address] [place] [address] Darrius Rangel MD [address] [place] [address] Health Maintenance Due Date Last Done Comments [...] mg/dL LAB CHEMISTRY METHOD 01/12/2024 12:45 PM [facility] Triglycerides 152(H) 0 - 150 mg/dL LAB CHEMISTRY METHOD 01/12/2024 12:45 PM [facility] HDL 45 >=40 mg/dL LAB CHEMISTRY METHOD 01/12/2024 12:45 PM [facility] LDL Calculated 121(H) 0 - 100 mg/dL LAB CHEMISTRY METHOD 01/12/2024 12:45 PM [facility] VLDL Cholesterol Allen 30.4 mg/dL LAB CHEMISTRY METHOD 01/12/2024 12:45 PM [facility] Non HDL Chol. (LDL+VLDL) 151(H) <145 mg/dL LAB CHEMISTRY METHOD 01/12/2024 12:45 PM [facility] Chol/HDL Ratio 4.4 0.0 - 4.4 LAB CHEMISTRY METHOD 01/12/2024 12:45 PM [facility] Blood Venous blood specimen / Unknown Venipuncture / Unknown 01/12/2024 9:08 AM EST 01/12/2024 9:08 AM EST Jessy RAYA LAB BLOOD ORDERABLES Fi nal Result [facility] [address] [place] [address], * Depression Screening (06/02/2023) Pathologist [facility] Depression Screening ABSTRACTED us Historical Provider HEALTH MAINTENANCE Final Result * Hepatitis C Screening (06/05/2018) [facility] Hepatitis C Screening ABSTRACTED us Historical Provider HEALTH MAINTENANCE Final Result * Colonoscopy (06/30/2014) [facility] Colonoscopy NO INTERPRETATION , ABSTRACTED Anatomical Region Laterality Modality Other us Historical Provider HEALTH MAINTENANCE Final Result from Last 3 Months or Most Recently Relevant to Health Maintenance Insurance MEDICARE MEDICAID - [place] Care Teams Paymaster Of Purses Relationship Specialty Start Date End Date Darrius Rangel MD [address] [place] [phone] PCP - General Internal Medicine 12/29/23
[2024-08-17 09:51] LABS: MANUAL DIFF FLAG NO
[2024-08-17 10:06] LABS: Basophils Absolute Auto 0.1 X10*3/uL (0.0-0.2); Basophils Percent Auto 1.2 % (0-2); Eosinophils Absolute Auto 0.1 X10*3/uL (0.0-0.4); Eosinophils Percent Auto 1.4 % (0-4); Hematocrit 43.5 % (42.0-52.0); Hemoglobin 14.3 g/dl (14.0-18.0); Imm Gran Abs Auto 0.02 X10*3/uL (0.00-0.03); Imm Gran Pct Auto 0.4 % (0.0-0.4); Lymphocytes Absolute Auto 1.4 X10*3/uL (1.2-4.9); Lymphocytes Percent Auto 27.3 % (20-40); Mean Corpuscular HGB Conc 32.9 g/dl (31.0-36.0); Mean Corpuscular Hemoglobin 26.6 pg (27.0-33.0); Mean Platelet Volume 9.8 fL (9.4-12.4); Monocytes Absolute Auto 0.9 X10*3/uL (0.1-1.2); Monocytes Percent Auto 17.4 % (2-11); Neutrophils Absolute Auto 2.6 x10*3/uL (2.0-8.3); Neutrophils Percent Auto 52.3 % (45-73); Platelet Count 124 X10*3/uL (160-400); Red Blood Count 5.37 X10*6/uL (4.60-5.80); Red Cell Distribution Width 13.8 % (11.0-16.0)
[2024-08-17 10:18] LABS: Appearance Urine Clear; Color Urine Yellow; Glucose Urine UA Negative (Negative); Leukocyte Esterase Urine Negative (Negative); Nitrite Urine Negative (Negative); PH 6.5 (5.0-9.0); Specific Gravity - Urine <= 1.005 (1.005-1.025); Urine Blood Negative (Negative); Urine Ketones Negative (Negative); Urine Protein Negative (Neg-Trace)
[2024-08-17 10:45] LABS: Alanine Aminotransferase 41 U/L (0-40); Albumin Level 4.3 g/dL (3.5-5.0); Alkaline Phosphatase 132 U/L (39-117); Anion Gap 11 (12-20); Aspartate Amino Transferase 40 U/L (5-37); Bilirubin Total 0.7 mg/dL (0.0-1.0); Blood Urea Nitrogen 11 mg/dL (9-16); Calcium 9.5 mg/dL (8.4-10.2); Carbon Dioxide 29 mmol/L (22-29); Chloride 103 mmol/L (96-108); Estimated Glomerular Filt Rate > 60; Glucose Random 132 mg/dL (60-115); Potassium 4.4 mmol/L (3.3-5.1); Sodium 139 mmol/L (135-145); Total Protein 7.4 g/dL (6.5-8.0)
== END 2024-08-17 09:24 | disposition home or self-care (01) ==
LOC: HO.LAB 09:23
PROVIDERS: PCP Internal Medicine; Visit Provider Internal Medicine Medical Oncology
DX: C18.9 Malignant neoplasm of colon, unspecified (principal); C78.6 Secondary malignant neoplasm of retroperitoneum and peritoneum
CPT/HCPCS: 36415; 80053; 81003; 85025

== ENCOUNTER 2024-08-21 10:29 | Outpatient (AMB) | payer MEDICARE, MEDICAID, SELFPAY ==
--- NOTE | 2024-08-21 10:31 | A.OFFVIS_ITS ---
Vital Signs 08/21/24 10:40 Height 5 ft 8 in Weight 160 lb BMI 24.3 BP 141/80 H Blood Pressure Location Rt brachial Position Sitting Pulse 73 Intake Visit Reasons: 1M f/u SBO Intake Note: Patient here 3m s/p small bowel obstruction. Patient c/o: redness, mild irritation around stoma. Information And Data Architect Analyst Required: No Accompanied by: Neelam Allergies No Known Allergies (No Known Allergies*) Allergy (Verified 08/21/24 10:39) Medication List - Last Reconciled 08/21/24 by Dion Sequeira MD acetaminophen (Tylenol) 650 mg (2 x 325 mg) PO Q6H PRN amoxicillin-pot clavulanate 875-125 mg 1 tab PO BID aripiprazole 2 mg PO BEDTIME azelastine 2 sprays intranasal BID dexamethasone 4 mg PO BID diclofenac sodium 1% (Arthritis Pain (diclofenac)) 2 grams topical QID PRN folic acid 1 mg PO DAILY hydroxyzine pamoate 100 mg PO BEDTIME PRN loperamide (Anti-Diarrheal (loperamide)) 2 mg PO TID PRN Magic Mouthwash Diphen/Lido/Antacid 1:1:1 10 mL PO QID PRN omeprazole 20 mg PO BID@0630,1630 ondansetron 8 mg PO Q8H polyethylene glycol 3350 (Gavilax) 17 grams PO DAILY PRN Held on 05/21/24. Instructions: per tramadol 50 mg PO Q8H PRN HPI HPI 1M f/u SBO: Details: He is here for follow-up for his peritoneal carcinomatosis. He had undergone diverting loop ileostomy in April, He is undergoing chemotherapy with Avastin and FOLFOX. He is on cycle 4/6 currently. He has been tolerating chemotherapy well. He does admit to getting really fatigued periodically. His ileostomy has been functioning well. He has been remaining active. 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 Review of Systems Const Denies chills and Denies fever(s) Card Denies chest pain Resp Denies cough GI Details: Has ileostomy Denies abdominal pain Physical Exam Vital Signs: Last Vital Signs Pulse 73 08/21/24 10:40 BP 141/80 H 08/21/24 10:40 BMI result Body Mass Index 24.3 Const General: comfortable and no acute distress Resp Effort & Inspection: normal respiratory effort Cardio Rate: regular rate GI Other: Ileostomy functioning well Palpation (GI): Soft to palpation, not firm and nontender Assessment & Plan Assessment & Plan (1) Peritoneal carcinomatosis: Code(s): C78.6 - Secondary malignant neoplasm of retroperitoneum and peritoneum Category: Medical Plan: He is tolerating chemotherapy so far with the Avastin and FOLFOX. He is on his 4th cycle now He is to see the [facility]IP[facility] surgeon in [place] after finishing his chemotherapy He currently he seems to be tolerating treatment well. His ileostomy is functioning well He has good oral intake His abdomen remained soft and benign I will see him in the office in about 3 months for a follow up visit. He is to continue to follow up with Dr. Henson for his chemotherapy. Coding Level of Care Code Est Pt Level 3 (56090) Diagnoses Peritoneal carcinomatosis C78.6
[2024-08-21 10:40] VITALS: BP 141/80; PULSE 73; BMI 24.3
--- OUTSIDE RECORDS SUMMARY | 2024-08-21 12:20 | XMS_ITS | Clinical Summary ---
Author Organization 175 [facility] Address [address] [place] [address] Phone Care Team Providers Care Machine Operator Hop Worker Name Role Phone Darrius Rangel MD Primary Care Provider [phone] Allergies No known active allergies Medications ARIPiprazole [...] of major depressive disorder without prior episode ([facility] V24, [facility] V28) 09/21/2020 Adjustment disorder with mixed anxiety and depre ssed mood 04/30/2020 Obstructive sleep apnea 07/04/2018 Overview (12/03/2023): [facility] Home Polysomnogram: Date 06/30/2018; Wt 199#; BMI 31; MISBAH 79, AI 68; HI 11; Unclassified apneas 16; Obstructive apneas 481; Central apneas 93; Mixed apneas 18; hypopneas 99; no oximetry data. - Obstructive Sleep Apnea - severe; mostly obstructive with frequent central apneas and hypopneas by 2018 home polysomnogram. [facility] Home Sleep Apnea Test: Date 06/02/2021; [...] Description 08/01/2024 11:30 AM EDT Office Visit [address] [phone] Darrius Rangel MD Mucinous adenocarcinoma ([facility]/HCC V24, CMS/HCC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); S/P ileostomy ([facility]/HCC V24, CMS/HCC V28); Adjustment disorder with mixed anxiety and depressed mood; Depression, unspecified depression type 07/30/2024 Billing Patient Not Present [address] [address] Darrius Rangel MD 06/21/2024 Telephone Gastroenterology [facility] [address] [place] [address] Arabella Parra MD special procedure 06/13/2024 1:30 PM EDT Office Visit [address] [address] Darrius Rangel MD Mucinous adenocarcinoma ([facility]/HCC V24, CMS/HCC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); S/P ileostomy ([facility]/HCC V24, CMS/HCC V28) 05/23/[address] [phone] Kelly Tilley RN from Last 3 Months [...] your loved ones. For example, early childhood coordinator or elderly care for an older adult? [...] 11:50 AM EDT Office Visit Pulmonolgy - [place] [address] [facility] [address] [place] [phone] Vilma Sepulveda NP 175 [facility] 200 [place] [address] 09/26/2024 11:30 AM EDT Office Visit Gastroenterology - [place] [address] [phone] Crista Rodriguez PA [address] [address] 03/10/2025 11:30 AM EST Office Visit Adult Medicine [facility] [address] [place] [address] Darrius Rangel MD [address] [place] [address] Health Maintenance Due Date Last Done Comments [...] mg/dL LAB CHEMISTRY METHOD 01/12/2024 12:45 PM [facility] Triglycerides 152(H) 0 - 150 mg/dL LAB CHEMISTRY METHOD 01/12/2024 12:45 PM [facility] HDL 45 >=40 mg/dL LAB CHEMISTRY METHOD 01/12/2024 12:45 PM [facility] LDL Calculated 121(H) 0 - 100 mg/dL LAB CHEMISTRY METHOD 01/12/2024 12:45 PM [facility] VLDL Cholesterol Allen 30.4 mg/dL LAB CHEMISTRY METHOD 01/12/2024 12:45 PM [facility] Non HDL Chol. (LDL+VLDL) 151(H) <145 mg/dL LAB CHEMISTRY METHOD 01/12/2024 12:45 PM [facility] Chol/HDL Ratio 4.4 0.0 - 4.4 LAB CHEMISTRY METHOD 01/12/2024 12:45 PM [facility] Blood Venous blood specimen / Unknown Venipuncture / Unknown 01/12/2024 9:08 AM EST 01/12/2024 9:08 AM EST Jessy RAYA LAB BLOOD ORDERABLES Fi nal Result [facility] [address] [place] [address], * Depression Screening (06/02/2023) Pathologist [facility] Depression Screening ABSTRACTED us Historical Provider HEALTH MAINTENANCE Final Result * Hepatitis C Screening (06/05/2018) [facility] Hepatitis C Screening ABSTRACTED us Historical Provider HEALTH MAINTENANCE Final Result * Colonoscopy (06/30/2014) [facility] Colonoscopy NO INTERPRETATION , ABSTRACTED Anatomical Region Laterality Modality Other us Historical Provider HEALTH MAINTENANCE Final Result from Last 3 Months or Most Recently Relevant to Health Maintenance Insurance MEDICARE MEDICAID - [place] Care Teams Machine Operator Hop Worker Relationship Specialty Start Date End Date Darrius Rangel MD [address] [place] [phone] PCP - General Internal Medicine 12/29/23
== END 2024-08-21 10:55 | disposition home or self-care (01) ==
LOC: HO.HGS 10:30
PROVIDERS: PCP Internal Medicine; Visit Provider Surgery
DX: C78.6 Secondary malignant neoplasm of retroperitoneum and peritoneum (principal)
CPT/HCPCS: 99213

== ENCOUNTER → 2024-08-21 10:29 | Outpatient (BNVA) | payer MEDICARE, MEDICAID, SELFPAY | PROVIDERS: PCP Internal Medicine; Visit Provider Surgery | DX: C78.6 Secondary malignant neoplasm of retroperitoneum and peritoneum (principal) | CPT/HCPCS: 99212 ==

== ENCOUNTER 2024-09-20 08:20 | Outpatient (REF) | payer MEDICARE, MEDICAID, SELFPAY ==
--- NOTE | ~2024-09-20 | CT_ITS ---
CLINICAL HISTORY: Follow-up pulmonary nodules, peritonealcarcinomato CT chest with contrast Comparison: 07/01/2024 02:14 PM EDT: CTSR: CT CHEST WITHOUT IV CONTRAST Findings: The heart size is normal. The visualized thyroid and mediastinum are unremarkable. The pulmonary lesions in the left lower lobe are unchanged, likely benign. There are no new solid or semi solid lesions. The upper abdomen is unremarkable. The bones are intact. IMPRESSION: 1. Probably benign pulmonary lesions. No acute findings. This document has been electronically signed by: Lion White MD on 09/21/2024 10:07:18
--- NOTE | ~2024-09-20 | CT_ITS ---
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 Unremarkable gallbladder and solid organs. No urolithiasis. No bowel obstruction, pneumoperitoneum, or pneumatosis. Normal-appearing loop of bowel extends to the right quadrant ostomy site. Pelvic contents unremarkable. The focal omental lesion in the left lower abdomen measures 3.4 x 1.5 cm and appears not significantly changed. The bones are intact. IMPRESSION: Stable omental disease, possible metastatic. This document has been electronically signed by: Lion White MD on 09/21/2024 10:12:25
--- OUTSIDE RECORDS SUMMARY | 2024-09-20 08:30 | XMS_ITS ---
Author Name [facility] Organization Unknown Care Team Organization Name Specialty Phone Email Start Date End [facility] REYMUNDO RUANO Primary Care 01/04/2022 4
--- OUTSIDE RECORDS SUMMARY | 2024-09-20 08:30 | XMS_ITS | Encounter Summary ---
Author Organization [facility] Address [address] [place] [address] Care Team Providers Care Maternal Fetal Physician Name Role Phone Darrius Rangel MD Primary Care Provider [phone] Reason for Visit * Reason Onset Date Comments faxed order 09/10/2024 Annmarie alcantara orde r # [id number] Encounter Details Date Type Department Care Team ([facility] Contact Info) Description 09/10/2024 Telephone Adult Medicine [facility] [address] [place] [phone] Darrius Rangel MD [address] [place] [address] faxed order (Annmarie alcantara order # [id number]) Social History Tobacco Use Types Packs/Day Years [...] as of this encounter Progress Notes * Danielle Fatima - 09/10/2024 8:12 AM EDT Annmarie dias order # [id number] received please sign and fax to [phone] documented in this encounter Plan of Treatment Upcoming Encounters Date Type Department Care Team (Late st Contact Info) Description 09/26/2024 11:30 AM EDT Office Visit Gastroenterology [place] [address] [address] [place] [phone] Crista Rodriguez PA [address] [place] [address] 12/09/2024 1:00 PM EDT Office Visit Pulmonolgy - [place] [address] [place] [address] Vilma Sepulveda, MARGUERITE [address] [facility] [address] [place] [address] 03/10/2025 11:30 AM EST Office Visit Adult Medicine [address] [phone] Darrius Rangel MD [address] [place] [address] documented as of this encounter Visit Diagnoses Not on filedocumented in this encounter Additional Health Concerns Assessment Noted Time PHQ-9 Depression Total Score: 0 06/11/19 25 7:08 PM EDT documented as of this encounter Care Teams Maternal Fetal Physician Relationship Specialty Start Date End Date Darrius Rangel MD [address] [place] [phone] PCP - General Internal Medicine 12/29/23 documented as of this encounter
[2024-09-20] MEDS: iohexoL 350 MG/ML 100 ML INFUS..BTL 85 ML IV (10:57)
[2024-09-20] MEDS: Barium Sulfate Oral (Mocha) 450 ML ORAL.SUSP 900 ML PO (10:57)
== END 2024-09-20 08:21 | disposition home or self-care (01) ==
LOC: HO.CT 08:20
PROVIDERS: PCP Internal Medicine; Visit Provider Internal Medicine Medical Oncology
DX: C78.6 Secondary malignant neoplasm of retroperitoneum and peritoneum (principal)
CPT/HCPCS: 71260; 74177; Q9967

== ENCOUNTER → 2024-09-20 08:22 | Outpatient (BNV) | payer MEDICARE, MEDICAID, SELFPAY | PROVIDERS: PCP Internal Medicine; Visit Provider Specialist | DX: C78.6 Secondary malignant neoplasm of retroperitoneum and peritoneum (principal); R91.8 Other nonspecific abnormal finding of lung field | CPT/HCPCS: 71260; 74177 ==

== ENCOUNTER 2024-11-13 09:56 | Outpatient (AMB) | payer MEDICARE, MEDICAID, SELFPAY ==
--- NOTE | 2024-11-13 09:58 | A.OFFVIS_ITS ---
Vital Signs 11/13/24 10:06 Height 5 ft 8 in Weight 169 lb BMI 25.7 BP 122/73 Blood Pressure Location Rt brachial Position Sitting Pulse 107 H Intake Visit Reasons: 3M f/u SBO Intake Note: Patient here for 3mo follow up his peritoneal carcinomatosis. HIPEC procedure at [facility] two weeks ago. Dr. Henson follow up this afternoon to flu port. Patient c/o: abdominal tenderness. Reports stoma removed 2wks ago. Business Improvement Manager Required: No Accompanied by: spouse Neelam Allergies No Known Allergies (No Known Allergies*) Allergy (Verified 11/13/24 10:06) Medication List - Last Reconciled 11/13/24 by Dion Sequeira MD acetaminophen (Tylenol) 650 mg (2 x 325 mg) PO Q6H PRN aripiprazole 2 mg PO BEDTIME azelastine 2 sprays intranasal BID butenafine 1% (Lotrimin Ultra) 1 appl topical BID dexamethasone 4 mg PO BID diclofenac sodium 1% (Arthritis Pain (diclofenac)) 2 grams topical QID PRN folic acid 1 mg PO DAILY hydroxyzine pamoate 100 mg PO BEDTIME PRN loperamide (Anti-Diarrheal (loperamide)) 2 mg PO TID PRN loperamide 2 mg PO Q4H PRN Magic Mouthwash Diphen/Lido/Antacid 1:1:1 10 mL PO QID PRN omeprazole 20 mg PO BID@0630,1630 ondansetron 8 mg PO Q8H polyethylene glycol 3350 (Gavilax) 17 grams PO DAILY PRN Held on 05/21/24. 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 He said he was discharged after 1 week He has good oral intake. He does complain of constipation and he says he has hemorrhoids are acting up He otherwise feels well overall. He is able to ambulate well. 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 Review of Systems Const Denies chills and Denies fever(s) Card Denies chest pain Resp Denies cough GI Denies abdominal pain Physical Exam Vital Signs: Last Vital Signs Pulse 107 H 11/13/24 10:06 BP 122/73 11/13/24 10:06 BMI result Body Mass Index 25.7 Const General: comfortable and no acute distress Resp Effort & Inspection: normal respiratory effort Cardio Rate: regular rate GI Other: Laparotomy incision and previous colostomy site both healing well, herman in his back, not infected Palpation (GI): Soft to palpation, not firm, nontender and no guarding Assessment & Plan Assessment & Plan (1) Peritoneal carcinomatosis: Code(s): C78.6 - Secondary malignant neoplasm of retroperitoneum and peritoneum Category: Medical Plan: Status post right colon resection and HIPEC procedure in [facility]. He is doing very well postop. He has good oral intake. His incisions are healing well. He has a follow up with them again next week I asked him to bring some records to me so we will know the entire path report and the op note He is to continue to follow up with Dr. Henson as well I will see him again in the office in about a month. He says his herman will be removed next week by his surgeon. Coding Level of Care Code Est Pt Level 3 (69309) Diagnoses Peritoneal carcinomatosis C78.6
[2024-11-13 10:06] VITALS: BP 122/73; PULSE 107; BMI 25.7
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
--- OUTSIDE RECORDS SUMMARY | 2024-11-13 11:55 | XMS_ITS | Encounter Summary ---
Author Organization [facility] Address [address] [place] [address] Care Team Providers Care Senior Manufacturing Test Engineer Name Role Phone Darrius Rangel MD Primary Care Provider [phone] Reason for Visit * Reason Onset Date Comments faxed order 11/08/2024 Annmarie vna orde r [id number] Encounter Details Date Type Department Care Team ([facility] st Contact Info) Description 11/08/[address] [facility] [address] [place] [address] Darrius Rangel MD [address] [place], [place] Social History Tobacco Use Types Packs/Day Years [...] for your loved ones. For example, child welfare consultant or elderly care for an older [...] as of this encounter Progress Notes * Colette Gatica MA - 11/12/2024 3:34 PM EDT Annmarie CHANG order signed,scanned and faxed * Danielle Fatima - 11/08/2024 9:58 AM EDT Annmarie chang order [id number] received please sign and fax to [phone] documented in this encounter Plan of Treatment Upcoming Encounters Date Type Department Care Team (Late st Contact Info) Description 11/28/2024 1:30 PM EDT Office Visit [address] [phone] Darrius Rangel MD [address] [place] [address] 12/09/2024 1:00 PM EDT Office Visit [address] [place] [phone] Vilma Sepulveda, PROVIDER RELATIONS CONSULTANT [address] [place] [phone] 03/10/2025 11:30 AM EST Office Visit [address] [phone] Darrius Rangel MD [address] [place] [address] documented as of this encounter Visit Diagnoses Not on filedocumented in this encounter Additional Health Concerns Assessment Noted Time PHQ-9 Depression Total Score: 0 06/11/19 25 7:08 PM EDT documented as of this encounter Care Teams Senior Manufacturing Test Engineer Relationship Specialty Start Date End Date Darrius Rangel MD [address] [place] [address] PCP - General Internal Medicine 12/29/23 documented as of this encounter
--- OUTSIDE RECORDS SUMMARY | 2024-11-13 11:55 | XMS_ITS | Clinical Summary ---
Author Organization 175 [facility] Address [address] [place] [address] Phone Care Team Providers Care Freelance Programmer/App Developer Name Role Phone Darrius Rangel MD Primary Care Provider [phone] Allergies No known active allergies Medications ARIPiprazole [...] Active Additional Information Patient not taking.Reported on 09/26/2024 loratadine (CLARITIN) 10 mg tablet TAKE 1 TABLET BY MOUTH EVERY DAY 90 tablet 1 5 Active omeprazole (PriLOSEC) [address] capsule [...] OF CHEMOTHERAPY EVERY 2 WEEKS. 5 Active azelastine (ASTELIN) 137 mcg (0.1 %) nasal sprayIndication s:Allergic rhinitis, unspecified seasonality, unspecified trigger ADMINISTER 2 SPRAYS INTO EACH NOSTRIL 2 TIMES A DAY DIRECTED 90 mL 1 5 025 Active sodium,potassiu m,mag sulfates (Suprep Bowel Prep Kit) 17.5-3.13-1.6 gram recon soln bowel prep kit oral solution Take 177ML by mouth for 2 doses. SEE INSTRUCTIONS PROVIDED BY OFFICE. 1 kit 5 Active Active Problems Problem Noted Date Diagnosed Date Current moderate episode of major depressive disorder without prior episode (CMS/HCC V24, CMS/HCC V28) 09/21/2020 Adjustment disorder with mixed anxiety and depre ssed mood 04/30/2020 Obstructive sleep apnea 07/04/2018 Overview (12/03/2023): [facility] Home Polysomnogram: Date 06/30/2018; Wt 199#; BMI 31; MISBAH 79, AI 68; HI 11; Unclassified apneas 16; Obstructive apneas 481; Central apneas 93; Mixed apneas 18; hypopneas 99; no oximetry data. - Obstructive Sleep Apnea - severe; mostly obstructive with frequent central apneas and hypopneas by 2018 home polysomnogram. [facility] Home Sleep Apnea Test: Date 06/02/2021; [...] Encounters Date Type Department Care Team Description 11/08/2024 Telephone Adult Medicine [address] [phone] Darrius Rangel MD 10/02/2024 12:07 PM EDT Anesthesia Event [facility] Endoscopy [address] [place] [phone] Manuelito Norton MD 10/02/2024 10:58 AM EDT - 10/02/2024 11:59 PM EDT Hospital Encounter [facility] Endoscopy [address] [place] [phone] Alberto Fall MD Barnes, Tyanna R, CRNA Dasilva, John E, MD Abdominal pain; Primary mucinous adenocarcinoma of appendix (CMS/HCC V24, [facility]/HCC V28); Colon cancer screening Discharge Disposition: Home or Self Care 09/30/2024 Billing Patient Not Present Adult Medicine [address] [phone] Darrius Rangel MD 09/26/2024 11:30 AM EDT Office Visit Gastroenterology - [place] [facility] [address] [facility] [address] [place] [address] Crista Rodriguez PA Primary mucinous adenocarcinoma of appendix (CMS/HCC V24, CMS/[facility]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) 09/10/2024 Telephone Adult Medicine [address] [phone] Darrius Rangel MD from Last 3 Months Immunizations Name Administration [...] COLONOSCOPY; COMMENT: hemorrhoids; repeat in 10 yrs COLOSTOMY partial colectomy Medical History Medical History Date Comments Allergic rhinitis, cause unspecified 05/26/2006 DX:Allergic rhinitis, cause unspecified Esophageal reflux 06/20/2006 DX:Esophageal reflux Diverticulosis 09/14/2009 DX:Diverticulosi s Chronic constipation 11/30/2016 DX:Chronic constipation Colon cancer ([facility] V24, [facility] V28) History of malignant neoplas m of appendix Sleep apnea Family History Relation Name Status Comments Brother [...] your loved ones. For example, early childhood aide classroom or elderly care for an older adult? [...] Sign Reading Time Taken Comments Blood Pressure 118/81 10/02/2024 12:42 PM EDT Pulse 70 10/02/2024 12:42 PM EDT Temperature 36.5 C (97.7 F) 10/02/2024 12:26 PM EDT Respiratory Rate 16 10/02/2024 12:42 PM EDT Oxygen Saturation 100% 10/02/2024 12:42 PM EDT Inhaled Oxygen Concentration - - Weight 71.7 kg (158 lb) 10/02/2024 11:37 AM EDT Height 170.2 cm (5' 7 ) 10/02/2024 11:37 AM EDT Body Mass Index 24.75 10/02/2024 11:37 AM EDT Plan of Treatment Upcoming Encounters Date Type Department Care Team (Late st Contact Info) Description 11/28/2024 1:30 PM EDT Office Visit Adult Medicine [address] [phone] Darrius Rangel MD [address] [place] [address] 12/09/2024 1:00 PM EDT Office Visit Pulmonolgy - [place] [address] [facility] [address] [place] [phone] Vilma Sepulveda, AIR CARRIER MAINTENANCE INSPECTOR [address] [place] [address] 03/10/2025 11:30 AM EST Office Visit Adult [address] [phone] Darrius Rangel MD [address] [place] [address] Health Maintenance Due Date Last Done Comments Pneumococcal Vaccine: 50+ Years (1 of 2 - PCV) 1983 HIV Screening 02/05/2022 Medicare Annual Wellness Visit 02/05/2022 COVID-19 Vaccine ( season) 2024 11/26/2023, 11/25/2022, 11/07/2021, Additional history exists Influenza Vaccine (#1) 2024 , 11/25/2022, 11/07/2021, Additional history exists Social Influencers of Health Screening 05/22/2025 05/22/2024 Cholesterol Screening (Lipid Panel) 01/11/2029 01/12/2024, 09/26/2023, 09/26/2023 DTaP,Tdap,and Td Vaccines (4 - Td or Tdap) 10/02/2032 10/02/2022, 06/05/2018, 06/20/2006 Colorectal Cancer Screening: Colonoscopy 10/02/2034 10/02/2024, 06/30/2014 RSV Immunization Adult Patients (1 - 1-dose 75+ series) 2039 Hepatitis C Screening Completed 06/05/2018 Zoster Vaccines Completed 05/03/2020, 03/03/2020 Depression Screening Completed 06/10/2024, 06/02/19 HIB Vaccines Aged Out No longer eligi [...] Procedure Name Priority Date/Time Associated Diagnosis Comments COLONOSCOPY Routine 10/02/2024 12:21 PM EDT Abdominal pain Primary mucinous adenocarcinoma of appendix (CMS/HCC V24, CMS/HCC V28) Colon cancer screening LIPID PANEL WITH REFLEX TO DIRECT LDL Routine 01/12/2024 9:08 AM EST Routine history and physical examination of adult DEPRESSION SCREENING Routine 06/02/2023 HEPATITIS C SCREENING Routine 06/05/2018 from Last 3 Months or Most Recently Relevant to Health Maintenance Results * COLONOSCOPY Anesthesia - MAC; [facility] ENDOSCOPY (10/02/2024 12:21 PM EDT) Anatomical Region Laterality Modality Other 10/02/2024 12:1 3 PM EDT Impressions 10/02/2024 12:23 PM EDT - Preparation of the colon was unsatisfactory. - Internal hemorrhoids. - End ileostomy. - No specimens collected. Recommendation: - Repeat colonoscopy in 3 years for surveillance. Narrative 10/02/2024 12:23 PM EDT [facility] GI Patient Name: Lance Johnston Procedure Date: 10/02/2024 12:13 PM Date of : 1965 Age: 59 Gender: Male Note Status: Finalized Attending MD: Alberto Fall MD, Procedure Date No Time: 10/02/2024 Procedure: Colonoscopy Indications: High risk colon cancer surveillance: Personal history of colon cancer Providers: Alberto Fall MD Referring MD: Alberto Fall MD Medicines: Propofol per Anesthesia Complications: No immediate complications. Estimated Blood Loss: Estimated blood loss: none. Procedure: Pre-Anesthesia Assessment: - ASA Grade Assessment: II - A patient with mild systemic disease. After I obtained informed consent, the scope was passed under direct vision. Throughout the procedure, the patient's blood pressure, pulse, and oxygen saturations were monitored continuously.The Colonoscope was introduced through the anus and advanced to the sigmoid colon. The colonoscopy was performed without difficulty. The patient tolerated the procedure well. The quality of the bowel preparation was unsatisfactory. Findings: The perianal and digital rectal examinations were normal. Internal hemorrhoids were found during endoscopy. The hemorrhoids were Grade I (internal hemorrhoids that do not prolapse). There was evidence of a prior end ileostomy at the surgical stoma. Procedure Code(s): --- Professional --- G0105, 53, Colorectal cancer screening; colonoscopy on individual at high risk Diagnosis Code(s): --- Professional --- Z85.038, Personal history of other malignant neoplasm of large intestine K64.0, First degree hemorrhoids Z98.0, Intestinal bypass and anastomosis status CPT copyright 2020 [employer]. All rights reserved. The codes documented in this report are preliminary and upon dermatology sales representative review may be revised to meet current compliance requirements. Alberto Fall MD 10/02/2024 12:23:20 PM This report has been signed electronically.Alberto Fall MD Number of Addenda: 0 Note Initiated On: 10/02/2024 12:13 PM Scope In: Scope Out: Endoscopy Department at [facility] - [address] [place] [phone] Procedure Note Alberto Fall MD - 10/02/2024 [facility] GI Patient Name: Lance Johnston Procedure Date: 10/02/2024 12:13 PM Date of : 1965 Age: 59 Gender: Male Note Status: Finalized Attending MD: Alberto Fall MD, Procedure Date No Time: 10/02/2024 Procedure: Colonoscopy Indications: High risk colon cancer surveillance: Personalhistory of colon cancer Providers: Alberto Fall MD Referring MD: Alberto Fall MD Medicines: Propofol per Anesthesia Complications: No immediate complications. Estimated Blood Loss: Estimated blood loss: none. Procedure: Pre-Anesthesia Assessment: - ASA Grade Assessment: II - A patient with mild systemic disease. After I obtained informed consent, the scope was passed under direct vision. Throughout theprocedure, the patient's blood pressure, pulse, and oxygen saturations were monitored continuously.The Colonoscope was introduced through the anus and advanced to the sigmoid colon. The colonoscopy was performed without difficulty. The patient tolerated the procedure well. The quality of the bowel preparation was unsatisfactory. Findings: The perianal and digital rectal examinations were normal. Internal hemorrhoids were found during endoscopy.The hemorrhoids were Grade I (internal hemorrhoids thatdo not prolapse). There was evidence of a prior end ileostomy at the surgical stoma. Procedure Code(s): --- Professional --- G0105, 53, Colorectal cancer screening; colonoscopyon individual at high risk Diagnosis Code(s): --- Professional --- Z85.038, Personal history of other malignantneoplasm of large intestine K64.0, First degree hemorrhoids Z98.0, Intestinal bypass and anastomosis status CPT copyright 2020 [employer]. All rights reserved. The codes documented in this report are preliminary and upon dermatology sales representative reviewmay be revised to meet current compliance requirements. Alberto Fall MD 10/02/2024 12:23:20 PM This report has been signed electronically.Alberto Fall MD Number of Addenda: 0 Note Initiated On: 10/02/2024 12:13 PM Scope In: Scope Out: Endoscopy Department at [facility] - [address] [place] [phone] IMPRESSION: - Preparation of the colon was unsatisfactory. - Internal hemorrhoids. - End ileostomy. - No specimens collected. Recommendation: - Repeat colonoscopy in 3 years for surveillance. Alberto Fall MD GI~PROCEDURE ORDERABLES Final Re sult * (ABNORMAL) Lipid panel with reflex to direct LDL (01/12/2024 9:08 AM EST) Cholesterol 196 0 - 200 mg/dL LAB CHEMISTRY METHOD 01/12/2024 12:45 PM [facility] Triglycerides 152(H) 0 - 150 mg/dL LAB CHEMISTRY METHOD 01/12/2024 12:45 PM [facility] HDL 45 >=40 mg/dL LAB CHEMISTRY METHOD 01/12/2024 12:45 PM [facility] LDL Calculated 121(H) 0 - 100 mg/dL LAB CHEMISTRY METHOD 01/12/2024 12:45 PM [facility] VLDL Cholesterol Allen 30.4 mg/dL LAB CHEMISTRY METHOD 01/12/2024 12:45 PM [facility] Non HDL Chol. (LDL+VLDL) 151(H) <145 mg/dL LAB CHEMISTRY METHOD 01/12/2024 12:45 PM [facility] Chol/HDL Ratio 4.4 0.0 - 4.4 LAB CHEMISTRY METHOD 01/12/2024 12:45 PM [facility] Blood Venous blood specimen / Unknown Venipuncture / Unknown 01/12/2024 9:08 AM EST 01/12/2024 9:08 AM EST Jessy RAYA LAB BLOOD ORDERABLES Fi nal Result [facility] [address] [place] [address], * Depression Screening (06/02/2023) Depression Screening ABSTRACTED Historical Provider HEALTH MAINTENANCE Final Result * Hepatitis C Screening (06/05/2018) Hepatitis C Screening ABSTRACTED Historical Provider HEALTH MAINTENANCE Final Result from Last 3 Months or Most Recently Relevant to Health Maintenance Insurance MEDICARE MEDICAID - [place] Care Teams Freelance Programmer/App Developer Relationship Specialty Start Date End Date aDrrius Rangel MD [address] [place] [phone] PCP - General Internal Medicine 12/29/23
--- OUTSIDE RECORDS SUMMARY | 2024-11-13 11:55 | XMS_ITS ---
Author Organization 175 [facility] Address [address] [place] [address] Phone Care Team Providers Care Recorder Helper Seismograph Name Role Phone Darrius Rangel MD Primary Care Provider [phone] Transitional Care Management Status:Ongoing (Active) Start date:11/05/2024 Enrollment date:11/05/2024 Enrollment reason:Identified using hospital discharge data Case Team Name Relationship Phone Elliot Crockett LPN Care Manager(Responsible Staff) Continued Care and Services Coordination
== END 2024-11-13 10:18 | disposition home or self-care (01) ==
LOC: HO.HGS 09:57
PROVIDERS: PCP Internal Medicine; Visit Provider Surgery
DX: C78.6 Secondary malignant neoplasm of retroperitoneum and peritoneum (principal)
CPT/HCPCS: 99213

== ENCOUNTER → 2024-11-13 09:56 | Outpatient (BNVA) | payer MEDICARE, MEDICAID, SELFPAY | PROVIDERS: PCP Internal Medicine; Visit Provider Surgery | DX: C78.6 Secondary malignant neoplasm of retroperitoneum and peritoneum (principal) | CPT/HCPCS: 99212 ==

== ENCOUNTER 2024-12-18 10:37 | Outpatient (AMB) | payer MEDICARE, MEDICAID, SELFPAY ==
--- NOTE | 2024-12-18 10:41 | MHC.OFFVIS ---
Vital Signs 12/18/24 10:46 Height 5 ft 8 in Weight 162 lb BMI 24.6 BP 113/71 Blood Pressure Location Rt brachial Position Sitting Pulse 83 Intake Visit Reasons: 1M f/u SBO Intake Note: Patient presents for a one month follow-up Status post right colon resection and HIPEC procedure in [facility]. Pt c/o; no complaints. Broke Man Required: No Accompanied by: Spouse Allergies No Known Allergies (No Known Allergies*) Allergy (Verified 12/18/24 10:54) Medication List - Last Reconciled 12/18/24 by Dion Sequeira MD acetaminophen (Tylenol) 650 mg (2 x 325 mg) PO Q6H PRN aripiprazole 2 mg PO BEDTIME azelastine 2 sprays intranasal BID hnmnlzsscn-izixtuildz-eym-cod 77-027-04-30 mg 1 cap PO Q4H PRN dxaijlbgqi-mkypyatlsphep-gdwr 50-325-40 mg 1 tab PO Q6H PRN butenafine 1% (Lotrimin Ultra) 1 appl topical BID dexamethasone 4 mg PO BID diclofenac sodium 1% (Arthritis Pain (diclofenac)) 2 grams topical QID PRN folic acid 1 mg PO DAILY hydroxyzine pamoate 100 mg PO BEDTIME PRN loperamide (Anti-Diarrheal (loperamide)) 2 mg PO TID PRN loperamide 2 mg PO Q4H PRN Magic Mouthwash Diphen/Lido/Antacid 1:1:1 10 mL PO QID PRN omeprazole 20 mg PO BID@0630,1630 ondansetron 8 mg PO Q8H polyethylene glycol 3350 (Gavilax) 17 grams PO DAILY PRN Held on 05/21/24. 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 He underwent HIPEC procedure along with right colon resection in [facility] last October 29, 2024. He continues to have good oral intake. He has weight has been stable. He seems to be doing well overall. His main complaint is that he often has flare-ups with this hemorrhoids. 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 Review of Systems Const Denies chills and Denies fever(s) Card Denies chest pain, Denies dyspnea and Denies dyspnea on exertion Resp Denies cough, Denies dyspnea and Denies dyspnea on exertion GI Denies change in bowel habits and Denies vomiting Denies hematuria and Denies difficulty urinating Musc Denies back pain and Denies limited range of motion Neuro Denies focal weakness and Denies convulsions Psych Denies depression and Denies mood swings Physical Exam Vital Signs: Last Vital Signs Pulse 83 12/18/24 10:46 BP 113/71 12/18/24 10:46 BMI result Body Mass Index 24.6 Const General: comfortable and no acute distress Resp Effort & Inspection: normal respiratory effort Cardio Rate: regular rate GI Other: All incisions are healing well Palpation (GI): Soft to palpation and not firm Assessment & Plan Assessment & Plan (1) Peritoneal carcinomatosis: Code(s): C78.6 - Secondary malignant neoplasm of retroperitoneum and peritoneum Category: Medical Plan: Status post cytoreductive surgery, HIPEC procedure last October,. He is clinically doing very well. All incisions are well healed. He has good GI functions . He is postop CEA has gone down to 3 I reminded him to follow up with Dr. Henson as he will need to continue with chemotherapy with FOLFOX. I will see him again in about 6 weeks here in the office. I told him that he his CEA level we will need to be monitored. He will have a follow up CAT scan in probably within the next 6 months after his surgery . Coding Level of Care Code Est Pt Level 3 (99156) Diagnoses Peritoneal carcinomatosis C78.6
[2024-12-18 10:46] VITALS: BP 113/71; PULSE 83; BMI 24.6
--- OUTSIDE RECORDS SUMMARY | 2024-12-18 13:31 | XMS_ITS | Encounter Summary ---
Author Organization [facility] Address [address] [place] [address] Care Team Providers Care Java Application Developer Name Role Phone Darrius Rangel MD Primary Care Provider [phone] Encounter Details Date Type Department Care Team (Late st Contact Info) Description 12/03/2024 Billing Patient Not Present Adult Medicine [address] [phone] Darrius Rangel MD [address] [place] [address] Social History Tobacco Use Types Packs/Day Years [...] your loved ones. For example, child welfare social worker or elderly care for an older adult? [...] Date Recorded What is your living situation? Unrecognized valu e 05/22/2024 Interpersonal Safety Answer Date Record ed Physical Abuse Unrecognized value 10/02/2024 Verbal Abuse Unrecognized value 10/02/2024 Sex and Gender Information Value Date Recorded Sex Assigned at Male 12/31/2023 9:35 AM EST Legal Sex Male 9:07 AM EST Gender Identity Male 12/31/2023 9:35 AM EST Sexual Orientation Not on file documented as of this encounter Plan of Treatment Upcoming Encounters Date Type Department Care Team (Late st Contact Info) Description 03/04/2025 2:20 PM EST Office Visit Pulmonology - [address] [place] [address] Vilma Sepulveda, MARGUERITE [address] [place] [address] 03/10/2025 11:30 AM EST Office Visit Adult Medicine [address] [place] [address] Darrius Rangel MD [address] [place] [address] documented as of this encounter Visit Diagnoses Not on filedocumented in this encounter Additional Health Concerns Assessment Noted Time PHQ-9 Depression Total Score: 0 06/11/19 25 7:08 PM EDT documented as of this encounter Care Teams Java Application Developer Relationship Specialty Start Date End Date Darrius Rangel MD [address] [place] [address] PCP - General Internal Medicine 12/29/23 documented as of this encounter
--- OUTSIDE RECORDS SUMMARY | 2024-12-18 13:31 | XMS_ITS | Encounter Summary ---
Author Organization [facility] Address [address] [place] [address] Care Team Providers Care Disability Rater Name Role Phone Darrius Rangel MD Primary Care Provider [phone] Reason for Visit * Reason Comments home health cert Encounter Details Date Type Department Care Team (Late st Contact Info) Description 09/30/2024 Billing Patient Not Present Adult Medicine [address] [phone] Darrius Rangel MD [address] [place] [address] Social History Tobacco Use Types Packs/Day Years [...] 2:20 PM EST Office Visit Pulmonology - [address] [place] [address] Vilma Sepulveda NP [address] [place] [address] 03/10/2025 11:30 AM EST Office Visit Adult Medicine [place] [phone] [place] [address] Darrius Rangel MD [address] [place] [address] documented as of this encounter Visit Diagnoses Not on filedocumented in this encounter Additional Health Concerns Assessment Noted Time PHQ-9 Depression Total Score: 0 06/11/19 25 7:08 PM EDT documented as of this encounter Care Teams Disability Rater Relationship Specialty Start Date End Date Darrius Rangel MD [address] [place] [address] PCP - General Internal Medicine 12/29/23 documented as of this encounter
--- OUTSIDE RECORDS SUMMARY | 2024-12-18 13:32 | XMS_ITS | Clinical Summary ---
Author Organization 175 [facility] Address [address] [place] [address] Phone Care Team Providers Care Customer Consulting Manager Name Role Phone Darrius Rangel MD Primary Care Provider [phone] Allergies No known active allergies Medications ARIPiprazole [...] Active hydrOXYzine pamoate (VISTARIL) 50 mg capsule 04/23/19 24 Active polyethylene glycol (MIRALAX) 17 [...] Active Additional Information Patient not taking.Reported on 12/09/2024 loratadine (CLARITIN) 10 mg tablet TAKE 1 TABLET BY MOUTH EVERY DAY 90 tablet 1 03/26/19 25 Active omeprazole (PriLOSEC) [address] capsule TAKE 1 CAPSULE BY MOUTH TWICE A DAY 180 capsule 1 05/02/19 25 Active loperamide (IMODIUM) 2 mg capsule Take 1 capsule (2 mg total) by mouth 1 (one) time each day. 90 capsule 1 06/14/19 25 Active dexAMETHasone (DECADRON) 4 mg tablet TAKE 1 TABLET BY MOUTH 2 TIMES A DAY DAYS 2 AND 3 OF CHEMOTHERAPY EVERY 2 WEEKS. 07/09/19 25 Active azelastine (ASTELIN) 137 mcg (0.1 %) nasal sprayIndication s:Allergic rhinitis, unspecified seasonality, unspecified trigger ADMINISTER 2 SPRAYS INTO EACH NOSTRIL 2 TIMES A DAY DIRECTED 90 mL 1 08/28/19 25 025 Active Additional Information Patient not taking.Reported on 12/09/2024 sodium,potassiu m,mag sulfates (Suprep Bowel Prep Kit) 17.5-3.13-1.6 gram recon soln bowel prep kit oral solution Take 177ML by mouth for 2 doses. SEE INSTRUCTIONS PROVIDED BY OFFICE. 1 kit 09/27/19 Active Additional Information Patient not taking.Reported on 12/09/2024 hydrocortisone (ANUSOL-HC) 25 mg suppository Insert 1 suppository (25 mg total) into the rectum 2 (two) times a day if needed for hemorrhoids. 30 suppository 1 11/29/19 25 026 Active Active Problems Problem Noted Date Diagnosed Date Adenocarcinoma of colon ([facility] V24, [facility] V2 8) 12/10/2024 Current moderate episode of major depressive disorder without prior episode ([facility] V24, [facility] V28) 09/21/2020 Adjustment disorder with mixed anxiety and depre ssed mood 04/30/2020 Obstructive sleep apnea 07/04/2018 Overview (12/03/2023): [facility] Home Polysomnogram: Date 06/30/2018; Wt 199#; BMI 31; MISBAH 79, AI 68; HI 11; Unclassified apneas 16; Obstructive apneas 481; Central apneas 93; Mixed apneas 18; hypopneas 99; no oximetry data. - Obstructive Sleep Apnea - severe; mostly obstructive with frequent central apneas and hypopneas by 2018 home polysomnogram. [facility] Home Sleep Apnea Test: Date [...] Encounters Date Type Department Care Team Description 12/11/2024 Telephone Pulmonology [facility] [address] [phone] Frederick Ervin [place], [place] 12/09/2024 1:00 PM EDT [facility] [address] [phone] Vilma Sepulveda NP Obstructive sleep apnea (Primary Dx); Allergic rhinitis, unspecified seasonality, unspecified trigger; Gastroesophageal reflux disease, unspecified whether esophagitis present; Adenocarcinoma of colon ([facility] V24, [facility] V28) 12/03/2024 Billing Patient Not Present Adult Medicine [address] [phone] Darrius Rangel MD 11/28/2024 1:30 PM EDT Office Visit Adult Medicine [address] [phone] Darrius Rangel MD 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, [facility]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); Internal hemorrhoids 11/08/2024 Telephone Adult Medicine [address] [phone] Darrius Rangel MD 10/02/2024 12:07 PM EDT Anesthesia Event [facility] [address] [place] [phone] Manuelito Norton MD 10/02/2024 10:58 AM EDT - 10/02/2024 11:59 PM EDT Hospital Encounter [facility] [address] [place] [phone] Alberto Fall MD Barnes, Tyanna R, CRNA Dasilva, John E, MD Abdominal pain; 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, [facility] V28); Colon cancer screening Discharge Disposition: Home or Self Care 09/30/2024 Billing Patient Not Present Adult Medicine [facility] [address] [place] [address] Darrius Rangel MD 09/26/2024 11:30 AM EDT Office Visit Gastroenterology [facility] 175 [facility] 175 [facility] [address] [place] [phone] Crista Rodriguez PA 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 For example, childhood teacher or elderly care for an older [...] Sign Reading Time Taken Comments Blood Pressure 120/60 12/09/2024 1:01 PM EDT Pulse 83 12/09/2024 1:01 PM EDT Temperature 36.4 C (97.6 F) 12/09/2024 1:01 PM EDT Respiratory Rate 16 12/09/2024 1:01 PM EDT Oxygen Saturation 100% 12/09/2024 1:01 PM EDT Inhaled Oxygen Concentration - - Weight 73.4 kg (161 lb 12.8 oz) 12/09/2024 1:01 PM EDT Height 172.7 cm (5' 8 ) 12/09/2024 1:01 PM EDT Body Mass Index 24.6 12/09/2024 1:01 PM EDT Plan of Treatment Upcoming Encounters Date Type Department Care Team (Late st Contact Info) Description 03/04/2025 2:20 PM EST Office Visit Pulmonology - [address] [place] [address] Vilma Sepulveda, MARGUERITE [address] [place] [phone] 03/10/2025 11:30 AM EST Office Visit Adult Medicine [facility] [address] [place], [place] [phone] Darrius Rangel MD [address] [place] [phone] Health Maintenance Due Date Last Done Comments [...] Maintenance Results * COLONOSCOPY Anesthesia - MAC; [facility] END[facility]COPY (10/02/2024 12:21 PM EDT) Anatomical Region Laterality Modality Other 10/02/2024 12:1 3 PM EDT Impressions 10/02/2024 12:23 PM EDT - Preparation of the colon was unsatisfactory. - Internal hemorrhoids. - End ileostomy. - No specimens collected. Recommendation: - Repeat colonoscopy in 3 years for surveillance. Narrative 10/02/2024 12:23 PM EDT [facility] Patient Name: Lance Johnston Procedure Date: [...] bypass and anastomosis status CPT copyright 2020 [employer]. All rights reserved. The codes documented in this report are preliminary and upon outpatient physical therapist review may be revised to meet current compliance requirements. Alberto Fall MD 10/02/2024 12:23:20 PM This report has been signed electronically.Alberto Fall MD Number of Addenda: 0 Note Initiated On: 10/02/2024 12:13 PM Scope In: Scope Out: Endoscopy Department at [facility] - [address] [place] [phone] Procedure Note Alberto Fall MD - 10/02/2024 [facility] Patient Name: Lance Johnston Procedure Date: [...] bypass and anastomosis status CPT copyright 2020 [employer]. All rights reserved. The codes documented in this report are preliminary and upon outpatient physical therapist reviewmay be revised to meet current compliance requirements. Alberto Fall MD 10/02/2024 12:23:20 PM This report has been signed electronically.Alberto Fall MD Number of Addenda: 0 Note Initiated On: 10/02/2024 12:13 PM Scope In: Scope Out: Endoscopy Department at [facility] - [address] [place] [phone] IMPRESSION: - Preparation of the colon was unsatisfactory. - Internal hemorrhoids. - End ileostomy. - No specimens collected. Recommendation: - Repeat colonoscopy in 3 years for surveillance. us Alberto Fall MD GI~PROCEDURE ORDERABLES Final Re sult * (ABNORMAL) Lipid panel with reflex to direct LDL (01/12/2024 9:08 AM EST) Cholesterol 196 0 - 200 mg/dL LAB CHEMISTRY METHOD 01/12/2024 12:45 PM EST [facility] Triglycerides 152(H) 0 - 150 [...] RAYA LAB BLOOD ORDERABLES Fi nal Result [facility] [address] [place] [address], * Depression Screening (06/02/2023) Depression Screening ABSTRACTED Historical Provider HEALTH MAINTENANCE Final Result * Hepatitis C Screening (06/05/2018) Pathologist [facility] Hepatitis C Screening ABSTRACTED Historical Provider HEALTH MAINTENANCE Final Result from Last 3 Months or Most Recently Relevant to Health Maintenance Insurance MEDICARE [place]ICAID - [place] Care Teams Customer Consulting Manager Relationship Specialty Start Date End Date Darrius Rangel MD [address] [place] [phone] PCP - General Internal Medicine 12/29/23
== END 2024-12-18 11:15 | disposition home or self-care (01) ==
LOC: HO.HGS 10:37
PROVIDERS: PCP Internal Medicine; Visit Provider Surgery
DX: C78.6 Secondary malignant neoplasm of retroperitoneum and peritoneum (principal)
CPT/HCPCS: 99213

== ENCOUNTER → 2024-12-18 10:37 | Outpatient (BNVA) | payer MEDICARE, MEDICAID, SELFPAY | PROVIDERS: PCP Internal Medicine; Visit Provider Surgery | DX: C78.6 Secondary malignant neoplasm of retroperitoneum and peritoneum (principal) | CPT/HCPCS: 99212 ==

== ENCOUNTER 2025-01-03 09:07 | Inpatient (IN) | payer MEDICARE, MEDICAID, SELFPAY ==
--- NOTE | ~2025-01-03 | CT_ITS ---
EXAMINATION: CT ABDOMEN AND PELVIS WITH CONTRAST CLINICAL INFORMATION: Left-sided abdominal pain. COMPARISON: September 20, 2024. TECHNIQUE: Multidetector volumetric images were obtained from the superior aspect of the liver through the pubic symphysis following administration 85 mL of Omnipaque 350 intravenous contrast. Sagittal and coronal reformatted images were obtained on the technologist's workstation. Oral contrast: No This CT examination was performed using dose optimization techniques as appropriate, variously including the following: *Automated exposure control *Adjustment of mA and/or kV according to patient size (this includes techniques or standardized protocols for targeted exams where dose is matched to indication/reason for exam; i.e. extremities or head) *Use of iterative reconstruction technique DLP: 467 mGy-cm FINDINGS: LUNG BASES: No acute airspace disease. LIVER, GALLBLADDER, AND BILIARY TREE: Liver measures 14 cm. No solid or cystic lesion. Gallbladder is fluid-filled without pericholecystic fluid collection or gallbladder wall thickening. No gallbladder distention. No intrahepatic or extrahepatic biliary ductal dilatation. PANCREAS: No solid or cystic lesion. No main pancreatic ductal dilatation. No peripancreatic collections. SPLEEN: 10 cm. No solid or cystic lesion. ADRENAL GLANDS: No nodular lesion. KIDNEYS AND URETERS: Normal enhancement pattern of the parenchyma without enhancing renal mass. No hydronephrosis. No gross nephrolithiasis. No dilatation of the ureters. BLADDER: Collapsed with thickened wall. GASTROINTESTINAL TRACT: Gas and fluid-filled and fluid contents distended stomach. Gas and fluid-filled distended proximal jejunal loops with segmental air cells intestinal wall thickening involving both small and large intestine. Collapsed appearance of the ileal lobes. There is a 3 cm amount of fluid in the anterior right no lytic peritoneal cavity. No peripheral enhancing fluid collections in the peritoneal cavity. Sutures at the cecum likely prior appendectomy. No pneumoperitoneum. No gross ascites. ABDOMINAL WALL: Scarring from a midline laparotomy incision. LYMPH NODES: Mildly prominent mesenteric lymph nodes. VASCULAR: Mixed plaques in the abdominal aorta wall and iliac arteries without aneurysm or dissection. Central venous line ends at the right atrium. PELVIC VISCERA: Dystrophic calcifications in a nonenlarged prostate gland. OSSEOUS STRUCTURES: Multilevel thoracolumbar spondylosis with the intervertebral discs chondrocalcinosis at L4-5, L5-S1 and to a lesser extent L4-5. Mild degenerative changes in the coxofemoral joints and the inferior sacroiliac joints. CT/CT abdomen pelvis w IV con IMPRESSION: Concerning flare of inflammatory bowel disease such as Crohn's disease resulting in regional ileus. Partial/intermittent mid small bowel obstruction secondary to adhesions cannot be excluded. Small amount of fluid pelvic peritoneal cavity. Abscess cannot be entirely excluded... Fleischner guidelines were followed. Electronically signed by: Justin Nation MD 01/03/2025 11:01 AM [facility]
[2025-01-03 09:17] VITALS: BP 148/94; PULSE 89; RESP 16; TEMP 36.6; O2SAT 99; BMI 25.5
[2025-01-03 09:33] VITALS: BP 158/98; PULSE 102; RESP 22; TEMP 36.9; O2SAT 99
[2025-01-03 09:51] LABS: MANUAL DIFF FLAG NO
[2025-01-03 09:55] LABS: Appearance Urine Cloudy; Glucose Urine UA Negative (Negative); PH 6.0 (5.0-9.0); Specific Gravity - Urine 1.025 (1.005-1.025); UMIC TRIGGER UACC YES
[2025-01-03 10:00] LABS: UACC Culture Trigger YES
[2025-01-03 10:02] LABS: Hematocrit 48.6 % (42.0-52.0); Hemoglobin 15.2 g/dl (14.0-18.0); Imm Gran Abs Auto 0.04 X10*3/uL (0.00-0.03); Imm Gran Pct Auto 0.4 % (0.0-0.4); Lymphocytes Absolute Auto 1.1 X10*3/uL (1.2-4.9); Mean Corpuscular HGB Conc 31.3 g/dl (31.0-36.0); Mean Corpuscular Hemoglobin 25.9 pg (27.0-33.0); Mean Corpuscular Volume 82.7 fL (80.0-98.0); NRBC Abs Auto 0.000 X10*3/uL (0.0-0.012); NRBC Pct Auto 0.0 /100WBC (0.0-0.2); Platelet Count 221 X10*3/uL (160-400); Red Blood Count 5.88 X10*6/uL (4.60-5.80); White Blood Count 9.2 X10*3/uL (4.8-10.8)
--- NOTE | 2025-01-03 10:05 | PC.NURSE ---
Patient vomitied as soon as he got in the room yellow smelled like feces. Just recently had abdominal surgery about 2 weeks ago. Diagnosed with Colon CA.
[2025-01-03 10:07] LABS: Alanine Aminotransferase 30 U/L (0-40); Albumin Level 5.0 g/dL (3.5-5.0); Alkaline Phosphatase 122 U/L (39-117); Anion Gap 16 (12-20); Aspartate Amino Transferase 38 U/L (5-37); Blood Urea Nitrogen 13 mg/dL (9-16); Calcium 10.5 mg/dL (8.4-10.2); Carbon Dioxide 28 mmol/L (22-29); Chloride 100 mmol/L (96-108); Creatinine Clr Calc Pharmacy 67.3; Estimated Glomerular Filt Rate > 60; Lipase 42 U/L (8-78); Potassium 5.2 mmol/L (3.3-5.1); Sodium 139 mmol/L (135-145); Total Protein 9.0 g/dL (6.5-8.0)
--- NOTE | 2025-01-03 10:29 | ECG_ITS ---
Test Reason : abd pain Blood Pressure : */* mmHG Vent. Rate : 77 BPM Atrial Rate : 77 BPM P-R Int : 148 ms QRS Dur : 76 ms QT Int : 356 ms P-R-T Axes : 19 -3 -1 degrees QTcB Int : 402 ms Normal sinus rhythm Inferior infarct , age undetermined Cannot rule out Anterior infarct , age undetermined Abnormal ECG When compared with ECG of 19-Dec-2022 12:41, No significant change was found Referred By: Keshav Watters Electronically Signed By: Noah Bush
--- OUTSIDE RECORDS SUMMARY | 2025-01-03 10:37 | XMS_ITS | Encounter Summary ---
Author Organization [facility] Address [address] [place] [address] Care Team Providers Care Storage Consultant Name Role Phone Darrius Rangel MD Primary Care Provider [phone] Encounter Details Date Type Department Care Team (Late st Contact Info) Description 12/03/2024 Billing Patient Not Present Adult Medicine [address] [phone] Darrius Rangel MD [address] [place] [address] Social History Tobacco Use Types Packs/Day Years [...] 2:20 PM EST Office Visit Pulmonology - [address] [place] [phone] Vilma Sepulveda, MARGUERITE [address] [place] [address] 03/10/2025 11:30 AM EST Office Visit Adult Medicine [address] [place] [phone] Darrius Rangel MD [address] [place] [address] documented as of this encounter Visit Diagnoses Not on filedocumented in this encounter Additional Health Concerns Assessment Noted Time PHQ-9 Depression Total Score: 0 06/11/19 25 7:08 PM EDT documented as of this encounter Care Teams Storage Consultant Relationship Specialty Start Date End Date Darrius Rangel MD [address] [place] [address] PCP - General Internal Medicine 12/29/23 documented as of this encounter
--- OUTSIDE RECORDS SUMMARY | 2025-01-03 10:37 | XMS_ITS | Encounter Summary ---
Author Organization [facility] Address [address] [place] [address] Care Team Providers Care Manager Government Name Role Phone Darrius Rangel MD Primary Care Provider [phone] Reason for Visit * Reason Comments home health cert Encounter Details Date Type Department Care Team (Late st Contact Info) Description 09/30/2024 Billing Patient Not Present Adult Medicine [address] [phone] Darrius Rangel MD [address] [place] [address] Social History Tobacco Use Types Packs/Day Years [...] your loved ones. For example, child care director or elderly care for an older [...] 2:20 PM EST Office Visit Pulmonology - [address] [place] [address] Vilma Sepulveda NP [address] [place] [address] 03/10/2025 11:30 AM EST Office Visit Adult Medicine [place] [phone] [place] [address] Darrius Rangel MD [address] [place] [address] documented as of this encounter Visit Diagnoses Not on filedocumented in this encounter Additional Health Concerns Assessment Noted Time PHQ-9 Depression Total Score: 0 06/11/19 25 7:08 PM EDT documented as of this encounter Care Teams Manager Government Relationship Specialty Start Date End Date Darrius Rangel MD [address] [place] [address] PCP - General Internal Medicine 12/29/23 documented as of this encounter
--- OUTSIDE RECORDS SUMMARY | 2025-01-03 10:38 | XMS_ITS | Clinical Summary ---
Author Organization 175 [facility] Address [address] [place] [address] Phone Care Team Providers Care Hose Inspector Name Role Phone Darrius Rangel MD Primary Care Provider [phone] Allergies No known active allergies Medications ARIPiprazole [...] Noted Date Diagnosed Date Adenocarcinoma of colon ([facility] V24, [facility] V2 8) 12/10/2024 Current moderate episode of major depressive disorder without prior episode ([facility] V24, [facility] V28) 09/21/2020 Adjustment disorder with mixed [...] Department Care Team Description 12/11/2024 Telephone [address] [phone] Frederick Ervin [place], [place] 12/09/2024 1:00 PM EDT Office Visit Pulmonology [address] [phone] Vilma Sepulveda NP Obstructive sleep apnea (Primary Dx); Allergic rhinitis, unspecified seasonality, unspecified trigger; Gastroesophageal reflux disease, unspecified whether esophagitis present; Adenocarcinoma of colon ([facility] V24, [facility] V28) 12/03/2024 Billing Patient Not Present Adult Medicine [address] [phone] Darrius Rangel MD 11/28/2024 1:30 PM EDT Office Visit Adult Medicine [address] [phone] Darrius Rangel MD 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 For example, children's librarian or elderly care for an older adult? [...] 2:20 PM EST Office Visit Pulmonology - [place] 175 [facility] [address] [place] [address] Vilma Sepulveda, MEDICATION AIDE [address] [place] [address] 03/10/2025 11:30 AM EST Office Visit Adult Medicine [address] [phone] Darrius Rangel MD [address] [place] [phone] Health Maintenance Due Date Last Done Comments [...] Maintenance Results * COLONOSCOPY Anesthesia - MAC; [facility] ENDOSCOPY (10/02/2024 12:21 PM EDT) Anatomical Region Laterality Modality Other 10/02/2024 12:1 3 PM EDT Impressions 10/02/2024 12:23 PM EDT - Preparation of the colon was unsatisfactory. - Internal hemorrhoids. - End ileostomy. - No specimens collected. Recommendation: - Repeat colonoscopy in 3 years for surveillance. Narrative 10/02/2024 12:23 PM EDT [facility] Patient Name: Lance Johnston Procedure Date: [...] bypass and anastomosis status CPT copyright 2020 [employer]. All rights reserved. The codes documented in this report are preliminary and upon formula weigher review may be revised to meet current compliance requirements. Alberto Fall MD 10/02/2024 12:23:20 PM This report has been signed electronically.Alberto Fall MD Number of Addenda: 0 Note Initiated On: 10/02/2024 12:13 PM Scope In: Scope Out: Endoscopy Department at [facility] - [address] [place] [phone] Procedure Note Alberto Fall MD - 10/02/2024 [facility] GI Patient Name: Lance Johnston Procedure Date: [...] bypass and anastomosis status CPT copyright 2020 [employer]. All rights reserved. The codes documented in this report are preliminary and upon formula weigher reviewmay be revised to meet current compliance requirements. Alberto Fall MD 10/02/2024 12:23:20 PM This report has been signed electronically.Alberto Fall MD Number of Addenda: 0 Note Initiated On: 10/02/2024 12:13 PM Scope In: Scope Out: Endoscopy Department at [facility] - [address] [place] [phone] IMPRESSION: - Preparation of the colon was unsatisfactory. - Internal hemorrhoids. - End ileostomy. - No specimens collected. Recommendation: - Repeat colonoscopy in 3 years for surveillance. us Alberto Fall MD GI~PROCEDURE ORDERABLES Final Re sult * (ABNORMAL) Lipid panel with reflex to direct LDL (01/12/2024 9:08 AM EST) Cholesterol 196 0 - 200 mg/dL LAB CHEMISTRY METHOD 01/12/2024 12:45 PM [facility] Triglycerides 152(H) 0 - 150 mg/dL LAB CHEMISTRY METHOD 01/12/2024 12:45 PM [facility] HDL 45 >=40 mg/dL LAB CHEMISTRY METHOD 01/12/2024 12:45 PM [facility] LDL Calculated 121(H) 0 - 100 mg/dL LAB CHEMISTRY METHOD 01/12/2024 12:45 PM [facility] VLDL Cholesterol Allen 30.4 mg/dL LAB CHEMISTRY METHOD 01/12/2024 12:45 PM [facility] Non HDL Chol. (LDL+VLDL) 151(H) <145 mg/dL LAB CHEMISTRY METHOD 01/12/2024 12:45 PM [facility] Chol/HDL Ratio 4.4 0.0 - 4.4 LAB CHEMISTRY METHOD 01/12/2024 12:45 PM [facility] Blood Venous blood specimen / Unknown Venipuncture / Unknown 01/12/2024 9:08 AM EST 01/12/2024 9:08 AM EST Jessy RAYA LAB BLOOD ORDERABLES Fi nal Result [facility] [address] [place] [address], [place] [phone] * Depression Screening (06/02/2023) Depression Screening ABSTRACTED Historical Provider MD HEALTH MAINTENANCE Final Result * Hepatitis C Screening (06/05/2018) Hepatitis C Screening ABSTRACTED Historical Provider HEALTH MAINTENANCE Final Result from Last 3 Months or Most Recently Relevant to Health Maintenance Insurance MEDICARE MEDICAID - [place] Care Teams Hose Inspector Relationship Specialty Start Date End Date Darrius Rangel MD [address] [place] [phone] PCP - General Internal Medicine 12/29/23
[2025-01-03] MEDS: iohexoL 350 MG/ML 100 ML INFUS..BTL IV (10:47)
--- NOTE | 2025-01-03 10:54 | ED_ITS ---
HPI - General Adult General Chief complaint: Abdominal Pain Stated complaint: Stomach Pain Time Seen by Provider: 01/03/25 10:24 Source: patient Mode of arrival: ambulatory Limitations: no limitations History of Present Illness ED Provider: Keshav Watters HPI narrative: [age] year male history of abdominal cancer that was surgically removed at [facility] 2 months ago presents to ED for for left-sided abdominal pain. Patient was sent in referred by Dr. Henson for left-sided abdominal pain. Patient states nausea and vomiting. Patient denies any chest pain or shortness of breath. Related Data Home Medications ?Medication ?Instructions ?Recorded ?Confirmed aripiprazole 2 mg tablet 2 mg PO BEDTIME 05/14/24 azelastine 137 mcg (0.1 %) nasal 2 spray intranasal BI D 05/14/24 12/18/24 spray folic acid 1 mg tablet 1 mg PO DAILY 05/14/2412/18 hydroxyzine pamoate 50 mg capsule 100 mg PO BEDTIME FL N Anxiety 05/14/24 12/18/24 omeprazole 20 mg capsule,delayed 20 mg PO BID@0630,163 0 05/14/24 12/18/24 release polyethylene glycol 3350 17 17 g PO DAILY PRN constipa tion 05/14/24 12/18/24 gram/dose oral powder (Gavilax) Held on 05/21/24. Instructions: per fluoxetine 40 mg capsule 40 mg PO QAM 01/03/25 hydrocortisone acetate 25 mg 25 mg FL BID PRN Hemorrho ids 01/03/25 rectal suppository Previous Rx's ?Medication ?Instructions ?Recorded acetaminophen 325 mg tablet 650 mg (2 x 325 mg) PO Q6H PRN 10/02/22 (Tylenol) pain #30 tabs dexamethasone 4 mg tablet 4 mg PO BID #60 tabs 5 ondansetron 8 mg disintegrating 8 mg PO Q8H #60 tabs 0 07/08/24 tablet diclofenac sodium 1 % topical gel 2 g topical QID PRN Right shoulder 07/23/24 (Arthritis Pain (diclofenac)) pain #100 grams tramadol 50 mg tablet 50 mg PO Q8H PRN Moderate Pa in 08/15/24 (Scale Score 5-6) #20 tabs loperamide 2 mg capsule 2 mg PO Q4H PRN Diarrhea #60 caps 09/02/24 loperamide 2 mg tablet 2 mg PO TID PRN high output from 09/02/24 (Anti-Diarrheal (loperamide)) stoma #60 tabs Magic Mouthwash 10 ml PO QID PRN Oral pain, mouth 10/10/24 Diphen/Lido/Antacid 1:1:1 240 mL sores #240 mL suspension butenafine 1 % topical cream 1 appl topical BID #45 gr ams 10/17/24 (Lotrimin Ultra) butalbital 50 mg-acetaminophen 325 1 cap PO Q4H PRN He adache #10 caps 11/19/24 mg-caffeine 40 mg-codeine 30 mg cap lrbxloxujh-diiqziddsajha-dnugbegk 1 tab PO Q6H PRN Hea dache #10 tabs 11/19/24 50 mg-325 mg-40 mg tablet Allergies Allergy/AdvReac Type Severity Reaction Status Date / Time No Known Allergies (No Known Allergy Verified 01/03/25 09:18 Allergies*) Review of Systems 2 Review of Systems: Abdominal pain Yes all other systems are reviewed and are negative PMFSH Past Medical History Medical History (Updated 01/03/25 @ 17:24 by DOROTA Garcia) Enteritis Cecum mass Sleep apnea Abnormal colonoscopy Injury of nail bed of finger of left hand Surgical History H/O sinus surgery Social History Social History Household Members: Spouse Housing: House Are you a primary long term care social worker to a significant other at home: No Do you presently have visiting nurse or other home services: No Patient Tobacco Use Status: Never used Tobacco Smoked in Last 30 Days: No Use of substances other than those prescribed or required for medical reasons: No Advance Directives: Yes Advance Directives Information Provided: Yes Advance Directives on File: No Do you have a plan to hurt others: No Plan service: No Current occupational status: retired 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 Physical Exam ED Vital Signs: Vital Signs - 24 hr 01/03/25 09:17 01/03/25 09:33 01/03/25 12:21 Temperature 97.9 F 98.4 F 98.6 F Pulse Rate 89 102 H 75 Respiratory Rate 16 22 H 18 Blood Pressure 148/94 H 158/98 H 122/71 Pulse Oximetry 99 99 98 Oxygen Delivery Method Room Air Room Air Room Air BMI result Body Mass Index 25.5 Const General: cooperative, healthy appearing, comfortable, no acute distress, well developed, alert, awake and Physically active [facility] Head: Yes normal to inspection, Yes No palpable skull fracture present, Yes normocephalic and Yes atraumatic Eyes General: appearance normal, both eyes and all related structures Neck Neck: Yes normal visual inspection, Yes full ROM, Yes no lymphadenopathy, Yes no meningeal signs, Yes trachea midline, Yes supple, No anterior neck swelling and No tender Chest Chest palpation & inspection: normal inspection of the chest and normal palpation of entire chest wall Resp Effort & Inspection: normal respiratory effort and able to speak in complete sentences Auscultation: clear to auscultation bilaterally Cardio Jugular venous distension: no JVD Heart sounds: S1 normal heart sound present and S2 normal heart sound present GI Inspection: Yes normal to inspection Palpation (GI): Tenderness to palpation present (GI) in the LLQ and in the LUQ, no guarding and not rigid General: Yes no CVA tenderness Back/Spine/Pelvis Back: no CVA tenderness and No back tenderness Skin General skin exam: no rashes or lesions noted, elasticity normal and turgor normal Neuro General: gait normal, tone normal, moves all extremities, Normal light touch and pain sensation, no meningeal signs, no focal motor deficits, CN's II-XI intact bilaterally and normal sensation to monofilament Extrem General: Yes normal to inspection, Yes full ROM and Yes capillary refill normal Psych Appearance: grossly normal, well kempt and not disheveled Medications Administered Generic Name Dose Route Start Last Admin Trade Name Freq PRN Reason Stop Dose Admin Heparin Sodium (Porcine) 5,000 unit 01/03/25 15:15 01/03/25 16:03 Heparin Sodium,Porcine 5,000 Unit/Ml Vial SUBCUT 5,000 unit Q8H JESIKA Administration Lactated Ringer's 1,000 mls @ 100 mls/hr 01/03/25 15:15 01/03/25 15:52 Lr IVCONT 100 mls/hr .Q10H JESIKA Administration Pantoprazole Sodium 80 mg/ 100 mls @ 10 mls/hr 01/03/25 16:30 01/03/25 15:45 Sodium Chloride IV 8 mg/hr .Q10H JESIKA 10 mls/hr 8 MG/HR Administration Ondansetron HCl 4 mg 01/03/25 15:12 01/03/25 15:44 Ondansetron Hcl 4 Mg/2 Ml Vial IVPUSH 4 mg Q8H PRN Administration Nausea and Vomiting Sodium Chloride 3 ml 01/03/25 16:00 01/03/25 15:51 0.9 % Sodium Chloride Flush 3 Ml Syringe IVFLUSH Not Given QSHIFT JESIKA Discontinued Medications Generic Name Dose Route Start Last Admin Trade Name Freq PRN Reason Stop Dose Admin Pantoprazole Sodium 80 mg/ 100 mls @ 10 mls/hr 01/03/25 15:30 01/03/25 16:05 Sodium Chloride IV Not Given .Q10H JESIKA 8 MG/HR Iohexol 100 ml 01/03/25 10:47 01/03/25 10:47 Iohexol 350 Mg/Ml 100 Ml Infus..Btl IV 01/03/25 10:48 85 ml ONCE ONE Administration Morphine Sulfate 4 mg 01/03/25 10:29 01/03/25 10:53 Morphine Sulfate 4 Mg/Ml Cartridge IVPUSH 01/03/25 10:30 4 mg ONCE ONE Administration Protocol Ondansetron HCl 4 mg 01/03/25 10:29 01/03/25 10:53 Ondansetron Hcl 4 Mg/2 Ml Vial IVPUSH 01/03/25 10:30 4 mg ONCE ONE Administration Medical Decision Making Medical Decision Making [facility] Narrative: 5-year-old male presents to ED for abdominal pain sent from Dr. Henson for evaluation and CAT scan. Patient states left side abdominal pain with nausea vomiting. Cat scan ordered. Labs EKG troponin ordered. Morphine Zofran ordered. 4:17pm: CT scan shows small bowel obstruction with possible abscess. Case was discussed with surgeon Dr. Lara who evaluated with Dr. Sqeueira. Patient will be admitted and kept NPO. Differential Diagnosis Differential Diagnoses: The differential diagnosis associated with the presentation includes (Abscess, small-bowel obstruction, kidney stones) Admission/Observation Consideration of admission/observation: Escalation of care including admission/observation considered Consult Healthcare Provider Management of the patient was discussed with: [place] Worker (Dr. Ayala. Surgery) Lab Data [facility] Lab Attestation statement: I reviewed the patient's lab results. 01/03/25 09:47 01/03/25 09:47 Labs: Lab Results 01/03/25 01/03/25 01/03/25 Range/Units 09:43 09:47 10:57 WBC 9.2 (4.8-10.8) X10*3/uL RBC 5.88 H D (4.60-5.80) X10*6/uL Hgb 15.2 D (14.0-18.0) g/dl Hct 48.6 D (42.0-52.0) % MCV 82.7 (80.0-98.0) fL MCH 25.9 L (27.0-33.0) pg MCHC 31.3 (31.0-36.0) g/dl RDW 15.7 (11.0-16.0) % Plt Count 221 (160-400) X10*3/uL MPV 9.7 (9.4-12.4) fL Immature Gran % (Auto) 0.4 (0.0-0.4) % Neut % (Auto) 81.3 H (45-73) % Lymph % (Auto) 11.7 L (20-40) % [place] % (Auto) 6.4 (2-11) % Eos % (Auto) 0.0 (0-4) % Baso % (Auto) 0.2 (0-2) % Lymph # (Auto) 1.1 L (1.2-4.9) X10*3/uL [place] # (Auto) 0.6 (0.1-1.2) X10*3/uL Eos # (Auto) 0.0 (0.0-0.4) X10*3/uL Baso # (Auto) 0.0 (0.0-0.2) X10*3/uL Abs Immat Gran (auto) 0.04 H (0.00-0.03) X10*3/uL Absolute Neuts (auto) 7.5 (2.0-8.3) x10*3/uL Absolute Nucleated RBC 0.000 (0.0-0.012) X10*3/uL Nucleated RBC % (auto) 0.0 (0.0-0.2) /100WBC Sodium 139 (135-145) mmol/L Potassium 5.2 H (3.3-5.1) mmol/L Chloride 100 (96-108) mmol/L Carbon Dioxide 28 (22-29) mmol/L Anion Gap 16 (12-20) BUN 13 (9-16) mg/dL Creatinine 1.09 (0.5-1.4) mg/dL Estim Creat Clear Calc 67.3 Estimated GFR > 60 Random Glucose 140 H (60-115) mg/dL Calcium 10.5 H D (8.4-10.2) mg/dL Total Bilirubin 0.5 (0.0-1.0) mg/dL AST 38 H (5-37) U/L ALT 30 (0-40) U/L Alkaline Phosphatase 122 H (39-117) U/L Troponin I High Sens 5.9 (<3.5-35.0) ng/L Total Protein 9.0 H (6.5-8.0) g/dL Albumin 5.0 (3.5-5.0) g/dL Lipase 42 (8-78) U/L Urine Color Dark Yellow Urine Appearance Cloudy Urine pH 6.0 (5.0-9.0) Ur Specific [place] 1.025 (1.005-1.025) Urine Protein 100 (2+) H (Neg-Trace) mg/dL Urine Glucose (UA) Negative (Negative) mg/dL Urine Ketones Trace (Negative) mg/dL Urine Blood Negative (Negative) Urine Nitrite Negative (Negative) Ur Leukocyte Esterase Small (1+) H (Negative) Urine RBC 0-2 (0-2) /HPF Urine WBC >50 H (0-5) /HPF Ur Squamous Epith Cells 3-5 (0-2) /HPF Urine Bacteria Trace (None Seen) Hyaline Casts 3-5 (0-2) /LPF Independent Interpretation I performed an independent interpretation of an: EKG (non diagnositc) Independent Historian Clinical information obtained from an independent historian. History obtained from or confirmed by: Other (patient) Critical Care Time Critical Care Time Critical Care Time: Yes Total Critical Care Time: 60 Attestation: Patient given morphine and Zofran for pain. Patient's CT scan reading shows small bowel obstruction with possible abscess. Patient evaluated by Dr. Sequeira and Dr. Lara. Patient admitted to surgery service. Discharge Plan Discharge Clinical Impression: Small bowel obstruction Patient Disposition: Admitted As Inpatient
[2025-01-03 11:22] LABS: Troponin-I High Sensitivity 5.9 ng/L (<3.5-35.0)
[2025-01-03 12:21] VITALS: BP 122/71; PULSE 75; RESP 18; TEMP 37; O2SAT 98
--- NOTE | 2025-01-03 13:00 | MHC.CM.ED ---
Patient is currently in ER. Received notification from Annmarie CHANG that patient is active with their agency. Return referral made in [facility] so [facility] can follow for d/c needs.
--- NOTE | 2025-01-03 15:14 | PM.HPGS ---
History of Present Illness History of Present Illness Date of Service: 01/06/25 Chief complaint: SBO Narrative: Lance Pena is a 59 year old male nausea, vomiting and abdominal pain he says this started probably about 2 days ago. He had some vague low-grade abdominal pain, mostly in the left side of the abdomen about 2 days ago he said the yesterday, he started to get nauseous and had some vomiting overnight. He therefore came to the emergency room early this morning . 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 He had undergone an attempt at right colon resection for an obstruction last April, but in view of the presence of carcinomatosis, along with high tumor bulk which appeared to be locally advanced, he ended up with a diverting loop ileostomy. I sent him to [facility] for further management and eventually had a HIPEC procedure and right colon resection. This was done last October, . He tolerated the procedure well. He actually has been doing very well since that time. He has had good oral intake. He has been active again. Currently, he says he does not have any abdominal pain. The last time he had vomited was around 930 in the morning. He says he is passing flatus. He had good bowel movements yesterday. Review of Systems Constitutional: Constitutional: Denies chills and Denies fever(s) Cardiovascular: Cardiovascular: Denies chest pain, Denies dyspnea and Denies dyspnea on exertion Respiratory: Respiratory: Denies cough, Denies dyspnea and Denies dyspnea on exertion Gastrointestinal: Gastrointestinal: Denies hematochezia and Denies change in bowel habits Genitourinary: Genitourinary: Denies hematuria and Denies difficulty urinating Musculoskeletal: Musculoskeletal: Denies back pain and Denies limited range of motion Neurologic: Denies focal weakness and Denies convulsions Psychiatric: Psychiatric: Denies depression and Denies mood swings PMFSH Past Medical History Medical History (Updated 01/03/25 @ 17:24 by DOROTA Garcia) Enteritis Cecum mass Sleep apnea Abnormal colonoscopy Injury of nail bed of finger of left hand Surgical History Surgical History H/O sinus surgery Social History Social History Household Members: Spouse Housing: House Are you a primary senior resident care director to a significant other at home: No Do you presently have visiting nurse or other home services: Yes ([facility]) Patient Tobacco Use Status: Never used Tobacco Smoked in Last 30 Days: No Use of substances other than those prescribed or required for medical reasons: No Currently Displaying Signs/Symptoms of Drug Intoxication Withdrawal: No Have you been hit, kicked, punched, or otherwise hurt by someone within the past year? 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 Meds Allergies Allergy/AdvReac Type Severity Reaction Status Date / Time No Known Allergies (No Known Allergy Verified 01/03/25 09:18 Allergies*) Home Medications ?Medication ?Instructions ?Recorded ?Confirmed ?Last Taken ?Type omeprazole 20 mg capsule,delayed 20 mg PO BID@0630,1630 05/14/24 01/03/25 01/03/25 History release Physical Exam Vital Signs: Vital Signs: Last Vital Signs Temp 98.6 F 01/03/25 12:21 Pulse 75 01/03/25 12:21 Resp 18 01/03/25 12:21 BP 122/71 01/03/25 12:21 Pulse Ox 98 01/03/25 12:21 O2 Del Method Room Air 01/03/25 12:21 BMI result Body Mass Index 25.5 Const: Other: Looks well current General: comfortable and no acute distress Orientation/consciousness: patient oriented x3 Neck: Neck: Yes no lymphadenopathy Resp: Auscultation: clear to auscultation bilaterally Cardio: Rhythm: regular rhythm GI: Palpation (GI): Soft to palpation, nontender and no guarding Neuro: General: patient oriented x3 Results Results Labs: Short CBC 01/03/25 Range/Units 09:47 WBC 9.2 (4.8-10.8) X10*3/uL Hgb 15.2 D (14.0-18.0) g/dl Hct 48.6 D (42.0-52.0) % Plt Count 221 (160-400) X10*3/uL [facility] 01/03/25 09:47 Sodium 139 Potassium 5.2 H Chloride 100 Carbon Dioxide 28 BUN 13 Creatinine 1.09 Calcium 10.5 H D Liver Function 01/03/25 Range/Units 09:47 Total Bilirubin 0.5 (0.0-1.0) mg/dL AST 38 H (5-37) U/L ALT 30 (0-40) U/L Alkaline Phosphatase 122 H (39-117) U/L Albumin 5.0 (3.5-5.0) g/dL Urine 01/03/25 Range/Units 09:43 Urine Color Dark Yellow Urine Appearance Cloudy Urine pH 6.0 (5.0-9.0) Ur Specific [place] 1.025 (1.005-1.025) Urine Protein 100 (2+) H (Neg-Trace) mg/dL Urine Glucose (UA) Negative (Negative) mg/dL Additional studies: GASTROINTESTINAL TRACT: Gas and fluid-filled and fluid contents distended stomach. Gas and fluid-filled distended proximal jejunal loops with segmental air cells intestinal wall thickening involving both small and large intestine. Collapsed appearance of the ileal lobes. There is a 3 cm amount of fluid in the anterior right no lytic peritoneal cavity. No peripheral enhancing fluid collections in the peritoneal cavity. Sutures at the cecum likely prior appendectomy. No pneumoperitoneum. No gross ascites. ABDOMINAL WALL: Scarring from a midline laparotomy incision. LYMPH NODES: Mildly prominent mesenteric lymph nodes. VASCULAR: Mixed plaques in the abdominal aorta wall and iliac arteries without aneurysm or dissection. Central venous line ends at the right atrium. PELVIC VISCERA: Dystrophic calcifications in a nonenlarged prostate gland. OSSEOUS STRUCTURES: Multilevel thoracolumbar spondylosis with the intervertebral discs chondrocalcinosis at L4-5, L5-S1 and to a lesser extent L4-5. Mild degenerative changes in the coxofemoral joints and the inferior sacroiliac joints. CT/CT abdomen pelvis w IV con IMPRESSION: Concerning flare of inflammatory bowel disease such as Crohn's disease resulting in regional ileus. Partial/intermittent mid small bowel obstruction secondary to adhesions cannot be excluded. Small amount of fluid pelvic peritoneal cavity. Abscess cannot be entirely excluded... Fleischner guidelines were followed. Electronically signed by: Justin Nation MD 01/03/2025 11:01 AM [facility] [place] and Plan (1) Enteritis: Status: Acute 59-year-old male with known appendiceal carcinoma, with peritoneal carcinomatosis, who had undergone HIPEC procedure and right colon resection in [facility] last October,, here for abdominal pain, vomiting and nausea I have reviewed his CAT scan. There were a lot of dilated bowel loops including the stomach proximally there is note of some segments with thickening suggestive of enteritis. There may be some component of obstruction as well. He is unable to tolerate oral intake so I will admit him for IV fluids and bowel rest . He does seem to be passing flatus well. The abdomen is soft and very benign. He looks well overall and I explained to him the plan and he understands Quality Stroke Does the patient have a stroke diagnosis?: No VTE Prior VTE?: No VTE Risk Level:: Medical - moderate - high VTE Device Contraindication: N/A - Device Ordered VTE Drug Contraindication: N/A - Med Ordered Procedures Date of Service Date of Service: 01/06/25
[2025-01-03 15:25] VITALS: BP 116/75; PULSE 76; RESP 17; O2SAT 96
[2025-01-03] MEDS: Pantoprazole Sodium 80 MG in 0.9 % Sodium Chloride 80 ML 10 MG IV (15:45)
[2025-01-03] MEDS: Lactated Ringers 1,000 ML 100 ML IVCONT (15:52)
--- NOTE | 2025-01-03 17:28 | PHA.MEDREC ---
Addendum entered by Destinee Angeles RPh 01/03/25 17:35: Reviewed by [facility] Original Note: Pharmacy Consult ? Medication Reconciliation Pharmacy has completed the medication reconciliation. Patient states he only take Omeprazole 20 mg. Patient reports he stopped taking all of his medications 2 months ago since he had surgery. Patient feels it was to much medications for his body and stopped taking on his own. Took off med list Aripiprazole 2 mg, Tlvpytpg-orhn-jphx, Fluoxetine 40, Folic acid 1 mg, and Hydroxyzine natali 100 mg all have recent claim history. Patient had his omeprazole today.
[2025-01-03 17:39] VITALS: BMI 25.3
[2025-01-03 17:59] VITALS: BP 146/94; PULSE 78; RESP 18; TEMP 36.3; O2SAT 99
[2025-01-03] MEDS: 0.9 % Sodium Chloride Flush 3 ML SYRINGE IVFLUSH (19:18)
--- NOTE | 2025-01-03 21:35 | PC.NURSE ---
This RN administered Reglan prn during shift change. Medication had good effect, pt no longer endorsing nausea. No vomiting. Currently pt is asleep, respirations even and unlabored.
[2025-01-03 22:27] VITALS: BP 139/77; PULSE 83; RESP 18; TEMP 37.2; O2SAT 100
[2025-01-04] MEDS: Pantoprazole Sodium 80 MG in 0.9 % Sodium Chloride 80 ML 10 MG IV ×3 (01:37→22:15)
[2025-01-04] MEDS: Lactated Ringers 1,000 ML 100 ML IVCONT ×3 (01:40→21:39)
[2025-01-04 05:04] VITALS: BP 136/72; PULSE 80; RESP 16; TEMP 36.4; O2SAT 97
--- NOTE | 2025-01-04 05:09 | PC.NURSE ---
Per pt, he is passing gas and had a small BM. Per pt it was loose and light brown. Pt has no complaints of nausea at this time.
[2025-01-04 07:04] LABS: MANUAL DIFF FLAG NO
[2025-01-04 07:14] LABS: Hematocrit 45.4 % (42.0-52.0); Hemoglobin 14.2 g/dl (14.0-18.0); Imm Gran Abs Auto 0.02 X10*3/uL (0.00-0.03); Imm Gran Pct Auto 0.2 % (0.0-0.4); Lymphocytes Absolute Auto 1.7 X10*3/uL (1.2-4.9); Mean Corpuscular HGB Conc 31.3 g/dl (31.0-36.0); Mean Corpuscular Hemoglobin 25.9 pg (27.0-33.0); Mean Corpuscular Volume 82.8 fL (80.0-98.0); NRBC Abs Auto 0.000 X10*3/uL (0.0-0.012); NRBC Pct Auto 0.0 /100WBC (0.0-0.2); Platelet Count 193 X10*3/uL (160-400); Red Blood Count 5.48 X10*6/uL (4.60-5.80); White Blood Count 8.3 X10*3/uL (4.8-10.8)
[2025-01-04 07:43] VITALS: BP 120/79; PULSE 87; RESP 16; TEMP 36; O2SAT 99
[2025-01-04 07:58] LABS: Anion Gap 15 (12-20); Blood Urea Nitrogen 16 mg/dL (9-16); Carbon Dioxide 27 mmol/L (22-29); Chloride 102 mmol/L (96-108); Creatinine Clr Calc Pharmacy 76.5; Estimated Glomerular Filt Rate > 60; Potassium 4.6 mmol/L (3.3-5.1); Sodium 139 mmol/L (135-145)
[2025-01-04 08:04] LABS: Calcium 9.5 mg/dL (8.4-10.2)
--- NOTE | 2025-01-04 10:34 | PM.PNGS ---
Subjective Subjective Date of Service: 01/04/25 Interval history: Patient had some nausea and vomiting last evening however this was improved after taking Reglan. This morning he feels much improved with no abdominal pain or nausea. He reports having approximately 3 small bowel movements. Physical Exam Vital Signs: Vital Signs: Last Vital Signs Temp 96.8 F 01/04/25 07:43 Pulse 87 01/04/25 07:43 Resp 16 01/04/25 07:43 BP 120/79 01/04/25 07:43 Pulse Ox 99 01/04/25 07:43 O2 Del Method Room Air 01/04/25 07:43 BMI result Body Mass Index 25.3 Const: General: no acute distress Nutritional Appearance: well nourished Orientation/consciousness: patient oriented x3 Limitations: no limitations Resp: Effort & Inspection: normal respiratory effort GI: Inspection: No distended Palpation (GI): Soft to palpation, nontender and no guarding Percussion: Yes normal to percussion Neuro: General: patient oriented x3 Extrem: General: Yes normal to inspection Objective Data Active Medications Heparin Sodium (Porcine) (Heparin Sodium,Porcine 5,000 Unit/Ml Vial) 5,000 unit SUBCUT Q8H [facility] Last Admin: 01/04/25 06:17 Dose: 5,000 unit Documented By: CRISTOBAL Hydromorphone HCl (Hydromorphone Hcl 1 Mg/Ml Syringe) 0.25 mg IVPUSH Q4H PRN; Protocol PRN Reason: Pain, Severe (Pain Scale 7-10) Lactated Ringer's (Lr) 1,000 mls @ 100 mls/hr IVCONT .Q10H [facility] Last Admin: 01/04/25 01:40 Dose: 100 mls/hr Documented By: CRISTOBAL Pantoprazole Sodium 80 mg/ (Sodium Chloride) 100 mls @ 10 mls/hr IV .Q10H [facility] Last Admin: 01/04/25 01:37 Dose: 8 mg/hr, 10 mls/hr Documented By: CRISTOBAL Melatonin (Melatonin 3 Mg Tablet) 6 mg PO BEDTIME PRN PRN Reason: Insomnia Metoclopramide HCl (Metoclopramide Hcl 10 Mg/2 Ml Vial) 10 mg IVPUSH Q6H PRN PRN Reason: Nausea Last Admin: 01/04/25 06:20 Dose: 10 mg Documented By: CRISTOBAL Ondansetron HCl (Ondansetron Hcl 4 Mg/2 Ml Vial) 4 mg IVPUSH Q8H PRN PRN Reason: Nausea and Vomiting Last Admin: 01/03/25 15:44 Dose: 4 mg Documented By: HERBERT Sodium Chloride (0.9 % Sodium Chloride Flush 3 Ml Syringe) 3 ml IVFLUSH QSHIFT [facility] Last Admin: 01/04/25 07:17 Dose: Not Given Documented By: EDEN Non-Admin Reason: IV Running Labs 01/04/25 06:35 01/04/25 06:35 Labs: Laboratory Results - last 24 hr 01/03/25 01/04/25 10:57 06:35 MCV 82.8 MCH 25.9 L MCHC 31.3 RDW 15.7 Plt Count 193 MPV 9.8 Immature Gran % (Auto) 0.2 Neut % (Auto) 65.5 Lymph % (Auto) 20.3 Roosevelt % (Auto) 13.1 H Eos % (Auto) 0.5 Baso % (Auto) 0.4 Lymph # (Auto) 1.7 Roosevelt # (Auto) 1.1 Eos # (Auto) 0.0 Baso # (Auto) 0.0 Abs Immat Gran (auto) 0.02 Absolute Neuts (auto) 5.5 Absolute Nucleated RBC 0.000 Nucleated RBC % (auto) 0.0 Anion Gap 15 Estim Creat Clear Calc 76.5 Estimated GFR > 60 Random Glucose 94 Calcium 9.5 D Troponin I High Sens 5.9 Procedures Date of Service Date of Service: 01/04/25 Progress Note: A&P Assessment and plan (1) Small bowel obstruction: Status: Acute Plan Overall the patient appears much improved this morning with no nausea or abdominal pain. Will hold on restarting po for now. May be able to start clear liquids later today. Time Spent With Patient Time: Total time managing care of this patient today ____ minutes. Quality Stroke Does the patient have a stroke diagnosis?: No VTE Prior VTE?: No VTE Risk Level:: Medical - moderate - high VTE Device Contraindication: N/A - Device Ordered VTE Drug Contraindication: N/A - Med Ordered
[2025-01-04 14:00] VITALS: BP 117/73; PULSE 74; RESP 16; TEMP 36.3; O2SAT 100
--- NOTE | 2025-01-04 16:21 | MHC.CM.PN ---
PT REPORTS HE LIVES WITH HIS AND IS INDEPENDENT WITH CARE HE IS ACTIVE WITH [facility] AND HAS NO DME HCP ON FILE PCP: REYMUNDO RUANO IMM DELIVERED DCP: HOME RESUME [facility] TO TRANSPORT
[2025-01-04 21:57] VITALS: BP 114/68; PULSE 76; RESP 17; TEMP 36.3; O2SAT 92
[2025-01-05 06:00] VITALS: BP 129/63; PULSE 75; RESP 18; TEMP 36.3; O2SAT 98
[2025-01-05 08:03] VITALS: BP 132/76; PULSE 78; RESP 16; TEMP 36.7; O2SAT 96
[2025-01-05] MEDS: 0.9 % Sodium Chloride Flush 3 ML SYRINGE IVFLUSH (08:03)
--- NOTE | 2025-01-05 08:57 | PM.PNGS ---
Subjective Subjective Date of Service: 01/05/25 Interval history: Patient feeling improved today with no increased abdominal pain, nausea or vomiting. He tolerated clear liquids without increased pain. Had several bowel movements yesterday. Physical Exam Vital Signs: Vital Signs: Last Vital Signs Temp 98.1 F 01/05/25 08:03 Pulse 78 01/05/25 08:03 Resp 16 01/05/25 08:03 BP 132/76 01/05/25 08:03 Pulse Ox 96 01/05/25 08:03 O2 Del Method Room Air 01/05/25 08:03 BMI result Body Mass Index 25.3 Const: General: no acute distress Nutritional Appearance: well nourished Orientation/consciousness: patient oriented x3 Limitations: no limitations Resp: Effort & Inspection: normal respiratory effort GI: Inspection: No distended Palpation (GI): Soft to palpation, nontender and no guarding Percussion: Yes normal to percussion Neuro: General: patient oriented x3 Extrem: General: Yes normal to inspection Objective Data Active Medications Heparin Sodium (Porcine) (Heparin Sodium,Porcine 5,000 Unit/Ml Vial) 5,000 unit SUBCUT Q8H [facility] Last Admin: 01/05/25 08:02 Dose: 5,000 unit Documented By: EDEN Hydromorphone HCl (Hydromorphone Hcl 1 Mg/Ml Syringe) 0.25 mg IVPUSH Q4H PRN; Protocol PRN Reason: Pain, Severe (Pain Scale 7-10) Pantoprazole Sodium 80 mg/ (Sodium Chloride) 100 mls @ 10 mls/hr IV .Q10H [facility] Last Admin: 01/04/25 22:15 Dose: 8 mg/hr, 10 mls/hr Documented By: CRISTOBAL Melatonin (Melatonin 3 Mg Tablet) 6 mg PO BEDTIME PRN PRN Reason: Insomnia Metoclopramide HCl (Metoclopramide Hcl 10 Mg/2 Ml Vial) 10 mg IVPUSH Q6H PRN PRN Reason: Nausea Last Admin: 01/04/25 06:20 Dose: 10 mg Documented By: CRISTOBAL Ondansetron HCl (Ondansetron Hcl 4 Mg/2 Ml Vial) 4 mg IVPUSH Q8H PRN PRN Reason: Nausea and Vomiting Last Admin: 01/03/25 15:44 Dose: 4 mg Documented By: HERBERT Sodium Chloride (0.9 % Sodium Chloride Flush 3 Ml Syringe) 3 ml IVFLUSH QSHIFT [facility] Last Admin: 01/05/25 08:03 Dose: 3 ml Documented By: EDEN Labs 01/04/25 06:35 01/04/25 06:35 Microbiology Microbiology Results: Microbiology 01/03/25 Unknown Urine Culture - Preliminary Urine clean catch - Clean Catch Midstream Culture in progress. Procedures Date of Service Date of Service: 01/05/25 Progress Note: A&P Assessment and plan (1) Small bowel obstruction: Status: Acute Plan Patient continues to improved this morning in his tolerating clear liquids. I will advance to a full liquid diet and DC IV fluids. Patient expressed understanding and agrees with the plan. Time Spent With Patient Time: Total time managing care of this patient today ____ minutes. Quality Stroke Does the patient have a stroke diagnosis?: No VTE Prior VTE?: No VTE Risk Level:: Medical - moderate - high VTE Device Contraindication: N/A - Device Ordered VTE Drug Contraindication: N/A - Med Ordered
[2025-01-05] MEDS: Pantoprazole Sodium 80 MG in 0.9 % Sodium Chloride 80 ML 10 MG IV ×2 (08:58→21:29)
[2025-01-05 14:00] VITALS: BP 122/72; PULSE 74; RESP 16; TEMP 36.4; O2SAT 99
--- NOTE | 2025-01-05 19:58 | PM.EVENT ---
Event Note Date of Service: 01/05/25 Event Note: notified by nursing staff that pt is complaining of urinary frequency and occasional dysuria. urine culture preliminary results: gram negative ace. pt seen bedside, resting comfortably in chair, no fever, chills, abd pain or gross hematuria. will add ceftriaxone 1gm Q24h x5 days. Time Spent With Patient Time: Total time managing care of this patient today ____ minutes.
[2025-01-05 21:26] VITALS: BP 127/74; PULSE 73; RESP 18; TEMP 36.4; O2SAT 99
[2025-01-06 05:10] VITALS: BP 119/76; PULSE 78; RESP 18; TEMP 35.7; O2SAT 98
[2025-01-06 07:49] VITALS: BP 116/69; PULSE 77; RESP 14; TEMP 36.3; O2SAT 100
--- NOTE | 2025-01-06 07:53 | PM.PNGS ---
Subjective Subjective Date of Service: 01/06/25 <Danae Mendoza PA-C - Last Filed: 01/06/25 07:55> 01/06/25 <Dion Sequeira MD - Last Filed: 01/06/25 10:07> Interval history: Feels well this morning. Tolerated full liquids yesterday without nausea, vomiting, abd pain. Passing flatus and had a BM yesterday afternoon. Would like to eat and go home. <Danae Mendoza PA-C - Last Filed: 01/06/25 07:55> Physical Exam Vital Signs: Vital Signs: Last Vital Signs Temp 97.3 F 01/06/25 07:49 Pulse 77 01/06/25 07:49 Resp 14 01/06/25 07:49 BP 116/69 01/06/25 07:49 Pulse Ox 100 01/06/25 07:49 O2 Del Method Room Air 01/06/25 07:49 BMI result Body Mass Index 25.3 <Danae Mendoza PA-C - Last Filed: 01/06/25 07:55> Const: General: comfortable, no acute distress and alert <Danae Mendoza PA-C - Last Filed: 01/06/25 07:55> Orientation/consciousness: patient oriented x3 <JAH Gonzalez Last Filed: 01/06/25 07:55> Resp: Effort & Inspection: normal respiratory effort <Danae Mendoza PA-C - Last Filed: 01/06/25 07:55> GI: Other: mild distention soft, nontender <JAH Gonzalez Last Filed: 01/06/25 07:55> Palpation (GI): no guarding <JAH Gonzalez Last Filed: 01/06/25 07:55> Skin: General skin exam: no rashes or lesions noted <JAH Gonzalez Last Filed: 01/06/25 07:55> Neuro: General: patient oriented x3 and moves all extremities <JAH Gonzalez Last Filed: 01/06/25 07:55> Objective Data Active Medications Heparin Sodium (Porcine) (Heparin Sodium,Porcine 5,000 Unit/Ml Vial) 5,000 unit SUBCUT Q8H [facility] Last Admin: 01/05/25 23:24 Dose: 5,000 unit Documented By: DA Hydromorphone HCl (Hydromorphone Hcl 1 Mg/Ml Syringe) 0.25 mg IVPUSH Q4H PRN; Protocol PRN Reason: Pain, Severe (Pain Scale 7-10) Pantoprazole Sodium 80 mg/ (Sodium Chloride) 100 mls @ 10 mls/hr IV .Q10H [facility] Last Admin: 01/05/25 21:29 Dose: 8 mg/hr, 10 mls/hr Documented By: DA Ceftriaxone Sodium 1 gm/ (Sodium Chloride) 50 mls @ 100 mls/hr IV Q24H [facility] Stop: 01/10/25 19:59 Last Infusion: 01/05/25 21:31 Dose: Infused Documented By: DA Melatonin (Melatonin 3 Mg Tablet) 6 mg PO BEDTIME PRN PRN Reason: Insomnia Metoclopramide HCl (Metoclopramide Hcl 10 Mg/2 Ml Vial) 10 mg IVPUSH Q6H PRN PRN Reason: Nausea Last Admin: 01/04/25 06:20 Dose: 10 mg Documented By: CRISTOBAL Ondansetron HCl (Ondansetron Hcl 4 Mg/2 Ml Vial) 4 mg IVPUSH Q8H PRN PRN Reason: Nausea and Vomiting Last Admin: 01/03/25 15:44 Dose: 4 mg Documented By: HERBERT Sodium Chloride (0.9 % Sodium Chloride Flush 3 Ml Syringe) 3 ml IVFLUSH QSHIFT [facility] Last Admin: 01/06/25 07:51 Dose: Not Given Documented By: DEVIN Non-Admin Reason: IV Running <Danae Mendoza PA-C - Last Filed: 01/06/25 07:55> Labs CBC & Chem 7: 01/04/25 06:35 01/04/25 06:35 <Danae Mendoza PA-C - Last Filed: 01/06/25 07:55> Microbiology Microbiology Results: Microbiology 01/03/25 Unknown Urine Culture - Preliminary Urine clean catch - Clean Catch Midstream Gram negative ace <Danae Mendoza PA-C - Last Filed: 01/06/25 07:55> Procedures Date of Service Date of Service: 01/06/25 <Danae Mendoza PA-C - Last Filed: 01/06/25 07:55> 01/06/25 <Dion Sequeira MD - Last Filed: 01/06/25 10:07> Progress Note: A&P Assessment and plan (1) Enteritis: Status: Acute <Danae Mendoza PA-C - Last Filed: 01/06/25 07:55> Assessment and Plan: Feels much better Has had no nausea or vomiting Passing flatus and BMs Abdomen is soft, benign nontender Diet as tolerated today Possible DC home in the afternoon Seen and examined independently <Dion Sequeira MD - Last Filed: 01/06/25 10:07> Assessment and Plan: Will advance to solid diet. VSS. Abd exam is benign, mild remaining distention, soft and nontender. Will reassess later today, if tolerating solid diet, stable for dc to home today. Patient comfortable with plan. <Danae Mendoza PA-C - Last Filed: 01/06/25 07:55> Time Spent With Patient Time: Total time managing care of this patient today ____ minutes. <Danae Mendoza PA-C - Last Filed: 01/06/25 07:55> Quality Stroke Does the patient have a stroke diagnosis?: No <Danae Mendoza PA-C - Last Filed: 01/06/25 07:55> VTE Prior VTE?: No <Danae Mendoza PA-C - Last Filed: 01/06/25 07:55> VTE Risk Level:: Medical - moderate - high <Danae Mendoza PA-C - Last Filed: 01/06/25 07:55> VTE Device Contraindication: N/A - Device Ordered <Danae Mendoza PA-C - Last Filed: 01/06/25 07:55> VTE Drug Contraindication: N/A - Med Ordered <Danae Mendoza PA-C - Last Filed: 01/06/25 07:55>
[2025-01-06] MEDS: Pantoprazole Sodium 80 MG in 0.9 % Sodium Chloride 80 ML 10 MG IV (07:59)
--- NOTE | 2025-01-06 13:15 | PM.EVENT ---
Event Note Date of Service: 01/06/25 Event Note: Seen on early afternoon Tolerating both lunch and breakfast Denies nausea or vomiting Denies any abdominal pain Looks well He says he feels well he is ready to be discharged We will DC home He may have had enteritis causing some partial obstruction Looks well Time Spent With Patient Time: Total time managing care of this patient today ____ minutes.
--- NOTE | 2025-01-06 14:39 | MHC.CM.PN ---
pt active with [facility] home
[2025-01-06 15:02] VITALS: BP 125/73; PULSE 87; RESP 16; TEMP 36.3; O2SAT 99
--- NOTE | 2025-01-06 15:42 | PM.DS ---
DS: Providers Provider Date of Service: 01/06/25 Date of admission: 01/03/25 15:18 Date of discharge: 01/06/25 Primary care physician: Darrius Rangel III, MD Attending physician on admission: Dion Sequeira Attending physician on discharge: Dion Sequeira DS: Diagnosis Discharge Diagnosis (1) Enteritis: Status: Acute DS: Summary Hospital Course Hospital Course: HPI AT ADMISSION: Lance Pena is a 59 year old male nausea, vomiting and abdominal pain he says this started probably about 2 days ago. He had some vague low-grade abdominal pain, mostly in the left side of the abdomen about 2 days ago he said the yesterday, he started to get nauseous and had some vomiting overnight. He therefore came to the emergency room early this morning . 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 He had undergone an attempt at right colon resection for an obstruction last April, but in view of the presence of carcinomatosis, along with high tumor bulk which appeared to be locally advanced, he ended up with a diverting loop ileostomy. I sent him to [facility] for further management and eventually had a HIPEC procedure and right colon resection. This was done last October,. He tolerated the procedure well. He actually has been doing very well since that time. He has had good oral intake. He has been active again. Currently, he says he does not have any abdominal pain. The last time he had vomited was around 930 in the morning. He says he is passing flatus. He had good bowel movements yesterday. CAT scan. There were a lot of dilated bowel loops including the stomach proximally there is note of some segments with thickening suggestive of enteritis, possibly causing partial obstruction. HOSPITAL COURSE: He was admitted to the surgical service for IV fluids as he was unable to tolerate oral intake. Picture was suggestive of enteritis. Abdomen was soft and very benign. His symptoms improved and his diet was gradually advanced from clears to solids. He passed more continuous flatus and began to move his bowels. He was started on rocephin for UTI. On the day of discharge, he was tolerating a solid diet without abdominal pain, nausea or vomiting. He had good GI function. His abdomen was benign and soft, nontender. He was discharged to home on 01/06/25 on course of Macrobid for his UTI. Time Attestation Discharge Coordination Time (in mins): 25 Quality: Safe Use of Opioids Does Pt have an Active Cancer Diagnosis on the Problem List?: No Quality: Stroke Does the patient have a stroke diagnosis?: No Physical Exam Vital Signs: Vital Signs: Last Vital Signs Temp 97.4 F 01/06/25 15:02 Pulse 87 01/06/25 15:02 Resp 16 01/06/25 15:02 BP 125/73 01/06/25 15:02 Pulse Ox 99 01/06/25 15:02 O2 Del Method Room Air 01/06/25 15:02 BMI result Body Mass Index 25.3 Const: General: comfortable, no acute distress and alert Orientation/consciousness: patient oriented x3 Resp: Effort & Inspection: normal respiratory effort GI: Palpation (GI): Soft to palpation, nontender and no guarding Skin: General skin exam: no rashes or lesions noted Neuro: General: patient oriented x3 DS: Data Data Completed and Pending Completed studies during hospitalization [Text1]: Procedures Bypass Ileum to Cutaneous, Open Approach (05/14/24) Drainage of Peritoneal Cavity, Open Approach, Diagnostic (05/14/24) Introduction of Anesthetic Agent into Peripheral Nerves and Plexi, Percutaneous Approach (05/14/24) Release Peritoneum, Open Approach (05/14/24) Discharge Plan Discharge Anticipated Discharge Date/Time: 01/06/25 13:15 Patient Disposition: Home Health Service Discharge Diagnosis: enteritis, obstruction Referrals: Darrius Rangel III, MD [Primary Care Provider, Medical] - 1 Week Dion Sequeira MD [Physician, General Surgery] - 2 Weeks Discharge Medications: New nitrofurantoin monohyd/m-cryst [Macrobid] 100 mg capsule 100 mg PO Q12H 5 Days Qty: 10 0RF Rx Instructions: must administer with a meal/food Continued omeprazole 20 mg capsule,delayed release(DR/EC) 20 mg PO BID@0630,1630 Discharge Orders: Discharge Order (Routine); Ordered 01/06/25 Ordered By: Dion Sequeira Diet: Advance to usual diet Activity on Discharge: As tolerated Stand Alone Forms: Patient Portal Discharge page Print Language: Albanian Activity Restrictions/Additional Instructions: Follow up in office in 2 weeks. ([phone]) Small meals as tolerated for now. Call Your Doctor If: ? ? -Your temperature exceeds 101.5? F? ? ? -You experience excessive pain or swelling ? ? -You have an unexpected reaction to medication ? ? -You experience continued vomiting/nausea Care Plan Goals: Return to baseline health and resume normal activities as tolerated. Health Concerns: hx of adenocarcinoma s/p HIPEC and right colon resection enteritis Plan of Treatment: Supportive measures with bowel rest, IVF hydration Diet advancement as tolerated Assessment: Improved Discharge Date/Time: 01/06/25 15:30
== END 2025-01-06 15:30 | disposition home health service (06) | DRG 389 ==
LOC: HO.ED 10:36 → HO.EDOVER 15:35 → HO.S3 15:49
PROVIDERS: Physician Assistant; Emergency Provider Emergency Medicine Emergency Medical Services; PCP Internal Medicine
DX: K56.600 Partial intestinal obstruction, unspecified as to cause (principal); C18.1 Malignant neoplasm of appendix; N39.0 Urinary tract infection, site not specified; K52.9 Noninfective gastroenteritis and colitis, unspecified; Z79.899 Other long term (current) drug therapy
CPT/HCPCS: 36415; 74177; 80048; 80053; 81001; 83690; 84484; 85025; 87086; 87088; 87186; 93005; 99285; J0696; J1644; J2270; J2405; J2470; J2765; J7120; Q9967

== ENCOUNTER → 2025-01-03 10:29 | Outpatient (BNV) | payer MEDICARE, MEDICAID, SELFPAY | PROVIDERS: Emergency Provider Emergency Medicine Emergency Medical Services; PCP Internal Medicine; Visit Provider Internal Medicine Cardiovascular Disease | DX: R94.31 Abnormal electrocardiogram [ECG] [EKG] (principal); R10.9 Unspecified abdominal pain | CPT/HCPCS: 93010 ==

== ENCOUNTER → 2025-01-03 10:29 | Outpatient (BNV) | payer MEDICARE, MEDICAID, SELFPAY | PROVIDERS: Emergency Provider Emergency Medicine Emergency Medical Services; PCP Internal Medicine; Visit Provider Radiology Diagnostic Radiology | DX: R10.9 Unspecified abdominal pain (principal) | CPT/HCPCS: 74177 ==

== ENCOUNTER → 2025-01-03 15:18 | Outpatient (BNV) | payer MEDICARE, MEDICAID, SELFPAY | PROVIDERS: Emergency Provider Emergency Medicine Emergency Medical Services; PCP Internal Medicine; Visit Provider Surgery | DX: K52.9 Noninfective gastroenteritis and colitis, unspecified (principal) | CPT/HCPCS: 99222; 99232; 99238; 99499 ==

== ENCOUNTER 2025-01-30 09:48 | Outpatient (AMB) | payer MEDICARE, MEDICAID, SELFPAY ==
--- NOTE | 2025-01-30 10:01 | MHC.OFFVIS ---
Vital Signs 01/30/25 10:06 Height 5 ft 8 in Weight 162 lb 4 oz BMI 24.7 BP 133/75 Blood Pressure Location Rt brachial Position Sitting Pulse 82 Intake Visit Reasons: 1M f/u SBO Intake Note: Patient presents for one month follow-up. Pt c/o; Getting better . 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 His CAT scan was suggestive of enteritis He was discharged after 3 days. He says he has been doing well at home. He has good oral intake. He denies any problems with bowel movements. He was seen again in [facility] 3 weeks ago. He is waiting to see Dr. Henson next week to resume his adjuvant chemotherapy after right colon resection and HIPEC therapy for his advanced appendiceal carcinoma. 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 Review of Systems Const Denies chills and Denies fever(s) Card Denies chest pain, Denies dyspnea and Denies dyspnea on exertion Resp Denies cough, Denies dyspnea and Denies dyspnea on exertion GI Denies hematochezia and Denies change in bowel habits Denies hematuria and Denies difficulty urinating Musc Denies back pain and Denies limited range of motion Neuro Denies focal weakness and Denies convulsions Psych Denies depression and Denies mood swings Physical Exam Vital Signs: Last Vital Signs Pulse 82 01/30/25 10:06 BP 133/75 01/30/25 10:06 BMI result Body Mass Index 24.7 Const General: comfortable and no acute distress Resp Effort & Inspection: normal respiratory effort Cardio Rate: regular rate GI Palpation (GI): Soft to palpation, not firm, nontender and no guarding Assessment & Plan Assessment & Plan (1) Colon adenocarcinoma: Code(s): C18.9 - Malignant neoplasm of colon, unspecified Category: Medical Plan: He had undergone right colon resection and HIPEC therapy for advanced adenocarcinoma last October,. He was admitted for nausea, vomiting, and abdominal pain last January 06 and this was likely secondary to an enteritis type pathology He seems to be doing well currently. His abdomen is soft and benign. He has good oral intake and his weight has been steady. He has a follow up with Dr. Henson next week to likely restart his adjuvant chemotherapy I would recommend repeating his colonoscopy sometime next year. He also should have a follow up CAT scan next year as well. His CEA level she will be followed. I will see him again in the office in about 3 months. Coding Level of Care Code Est Pt Level 3 (24103) Diagnoses Colon adenocarcinoma C18.9
[2025-01-30 10:06] VITALS: BP 133/75; PULSE 82; BMI 24.7
--- OUTSIDE RECORDS SUMMARY | 2025-01-30 11:21 | XMS_ITS | Encounter Summary ---
Author Organization [facility] Address [address] [place] [address] Care Team Providers Care Certified Personal Chef Name Role Phone Darrius Rangel MD Primary Care Provider [phone] Reason for Visit * Reason Comments home health cert Encounter Details Date Type Department Care Team (Late st Contact Info) Description 09/30/2024 Billing Patient Not Present Adult Medicine [address] [phone] Darrius Rangel MD [address] [place] [address] Social History Tobacco Use Types Packs/Day Years [...] loved ones. For example, early childhood education specialist or elderly care for an older adult? [...] 2:20 PM EST Office Visit Pulmonology - [address] [place] [address] Vilma Sepulveda NP [address] [place] [address] 03/10/2025 11:30 AM EST Office Visit Adult Medicine [place] [id number] [place] [address] Darrius Rangel MD [address] [place] [address] documented as of this encounter Visit Diagnoses Not on filedocumented in this encounter Additional Health Concerns Assessment Noted Time PHQ-9 Depression Total Score: 0 06/11/19 25 7:08 PM EDT documented as of this encounter Care Teams Certified Personal Chef Relationship Specialty Start Date End Date Darrius Rangel MD [address] [place] [address] PCP - General Internal Medicine 12/29/23 documented as of this encounter
--- OUTSIDE RECORDS SUMMARY | 2025-01-30 11:22 | XMS_ITS | Encounter Summary ---
Author Organization [facility] Address [address] [place] [address] Care Team Providers Care Researcher Name Role Phone Darrius Rangel MD Primary Care Provider [phone] Encounter Details Date Type Department Care Team (Late st Contact Info) Description 12/03/2024 Billing Patient Not Present Adult Medicine [address] [phone] Darrius Rangel MD [address] [place] [address] Social History Tobacco Use Types Packs/Day Years [...] for your loved ones. For example, children's program coordinator or elderly care for an older [...] 2:20 PM EST Office Visit Pulmonology - [address] [place] [address] Vilma Sepulveda, MARGUERITE [address] [place] [address] 03/10/2025 11:30 AM EST Office Visit Adult Medicine [address] [place] [address] Darrius Rangel MD [address] [place] [address] documented as of this encounter Visit Diagnoses Not on filedocumented in this encounter Additional Health Concerns Assessment Noted Time PHQ-9 Depression Total Score: 0 06/11/19 25 7:08 PM EDT documented as of this encounter Care Teams Researcher Relationship Specialty Start Date End Date Darrius Rangel MD [address] [place] [address] PCP - General Internal Medicine 12/29/23 documented as of this encounter
--- OUTSIDE RECORDS SUMMARY | 2025-01-30 11:22 | XMS_ITS | Clinical Summary ---
Author Organization 175 [facility] Address [address] [place] [address] Phone Care Team Providers Care Cheese Cooker Name Role Phone Darrius Rangel MD Primary Care Provider [phone] Allergies No known active allergies Medications ARIPiprazole [...] Active Additional Information Patient not taking.Reported on 01/15/2025 omeprazole (PriLOSEC) [address] capsule TAKE 1 CAPSULE BY MOUTH TWICE A DAY 180 capsule 1 05/02/19 Active loperamide (IMODIUM) 2 mg capsule Take 1 capsule (2 mg total) by mouth 1 (one) time each day. 90 capsule 1 06/14/19 Active Additional Information Patient not taking.Reported on 01/15/2025 dexAMETHasone (DECADRON) 4 mg tablet TAKE 1 TABLET BY MOUTH 2 TIMES A DAY DAYS 2 AND 3 OF CHEMOTHERAPY EVERY 2 WEEKS. 07/09/19 Active azelastine (ASTELIN) 137 mcg (0.1 %) [...] 30 suppository 1 11/29/19 25 026 Active benzonatate (TESSALON) 100 mg capsule Take 1 capsule (100 mg total) by mouth 3 (three) times a day if needed for cough. Do not crush or chew. 42 capsule 01/16/20 25 025 Active azithromycin (ZITHROMAX) 250 mg tablet Take 2 tablets (500 mg total) by mouth 1 (one) time each day for 1 day, THEN 1 tablet (250 mg total) 1 (one) time each day for 4 days. 6 each 01/16/20 25 025 Active Problems Problem Noted Date Diagnosed Date Adenocarcinoma of colon (CMS/HCC V24, CMS/HCC V2 8) 12/10/2024 Current moderate episode of major depressive disorder without prior episode ([facility] V24, [facility] V28) 09/21/2020 Adjustment disorder with mixed anxiety and depre ssed mood 04/30/2020 Obstructive sleep apnea 07/04/2018 Overview (12/03/2023): [facility] Home Polysomnogram: Date 06/30/2018; Wt 199#; BMI 31; MISBAH 79, AI 68; HI 11; Unclassified apneas 16; Obstructive apneas 481; Central apneas 93; Mixed apneas 18; hypopneas 99; no oximetry data. - Obstructive Sleep Apnea - severe; mostly obstructive with frequent central apneas and hypopneas by 2018 home polysomnogram. [facility] Home Sleep Apnea Test: Date 06/02/2021; [...] Encounters Date Type Department Care Team Description 01/30/2025 Billing Patient Not Present Adult Medicine [address] [phone] Darrius Rangel MD 01/16/2025 Results Follow-Up Adult Medicine [address] [phone] Darrius Rangel MD 01/15/2025 11:43 AM EST - 01/15/2025 11:59 PM EST Hospital Encounter [address] [phone] Acute cough Discharge Disposition: Home or Self Care 01/15/2025 11:00 AM EST Office Visit [address] [phone] Darrius Rangel MD SBO (small bowel obstruction) ([facility] V24, [facility]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); Acute cough; Adenocarcinoma of colon ([facility] V24, [facility] V28); S/P ileostomy ([facility] V24, [facility] V28) 12/11/2024 Telephone Pulmonology [facility] [address] [facility] [address] [place] [address] Frederick Ervin [place], [place] 12/09/2024 1:00 PM EDT Office Visit Pulmonology [facility] [address] [facility] [address] [place] [address] Vilma Sepulveda NP Obstructive sleep apnea (Primary Dx); Allergic rhinitis, unspecified seasonality, unspecified trigger; Gastroesophageal reflux disease, unspecified whether esophagitis present; Adenocarcinoma of colon ([facility] V24, [facility] V28) 12/03/2024 Billing Patient Not Present Adult Medicine [address] [phone] Darrius Rangel MD 11/28/2024 1:30 PM EDT Office Visit Adult Medicine [address] [phone] Darrius Rangel MD 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, [facility]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); Internal hemorrhoids 11/08/2024 Telephone Adult Medicine [address] [phone] Darrius Rangel MD from Last 3 Months [...] Chronic constipation 11/30/2016 DX:Chronic constipation Colon cancer ([facility] V24, [facility] V28) History of malignant neoplas m [...] Sign Reading Time Taken Comments Blood Pressure 110/68 01/15/2025 10:55 AM EST Pulse 82 01/15/2025 10:55 AM EST Temperature 36.6 C (97.8 F) 01/15/2025 10:55 AM EST Respiratory Rate 14 01/15/2025 10:55 AM EST Oxygen Saturation 99% 01/15/2025 10:55 AM EST Inhaled Oxygen Concentration - - Weight 72.6 kg (160 lb) 01/15/2025 10:55 AM EST Height 172.7 cm (5' 8 ) 01/15/2025 10:55 AM EST Body Mass Index 24.33 01/15/2025 10:55 AM EST Plan of Treatment Upcoming Encounters Date Type Department Care Team (Late st Contact Info) Description 03/04/2025 2:20 PM EST Office Visit Pulmonology - [place] [address] [facility] [address] [place] [phone] Vilma Sepulveda, MARGUERITE [address] [place] [phone] 03/10/2025 11:30 AM EST Office Visit Adult Medicine [facility] [address] [place] [phone] Darrius Rangel MD [address] [place] [address] Health Maintenance Due Date Last Done Comments Pneumococcal Vaccine: 50+ Years (1 of 2 - PCV) 1983 HIV Screening 02/05/2022 Medicare Annual Wellness Visit 02/05/2022 COVID-19 Vaccine ( season) 2024 11/26/2023, 11/25/2022, 11/07/2021, Additional history exists Influenza Vaccine (#1) 2024 , 11/25/2022, 11/07/2021, Additional history exists Social Influencers of Health Screening 05/22/2025 05/22/2024 Colorectal Cancer Screening: Colonoscopy 10/03/2027 10/02/2024, 10/02/2024, 06/30/2014 Cholesterol Screening (Lipid Panel) 01/11/2029 01/12/2024, 09/26/2023, 09/26/2023 DTaP,Tdap,and Td Vaccines (4 - Td or Tdap) 10/02/2032 10/02/2022, 06/05/2018, 06/20/2006 RSV Immunization Adult Patients (1 - 1-dose 75+ series) 2039 Hepatitis C Screening Completed 06/05/2018 Zoster Vaccines Completed 05/03/2020, 03/03/2020 Depression Screening Completed 06/10/2024, 06/02/19 24 HIB Vaccines Aged Out No longer eligi [...] Procedure Name Priority Date/Time Associated Diagnosis Comments XR CHEST 2 VIEWS Routine 01/15/2025 11:4 8 AM EST Acute cough COLONOSCOPY Routine 10/02/2024 12:21 PM EDT Abdominal pain Primary mucinous adenocarcinoma of appendix (CMS/HCC V24, CMS/HCC V28) Colon cancer screening LIPID PANEL WITH REFLEX TO DIRECT LDL Routine 01/12/2024 9:08 AM EST Routine history and physical examination of adult DEPRESSION SCREENING Routine 06/02/2023 HEPATITIS C SCREENING Routine 06/05/2018 from Last 3 Months or Most Recently Relevant to Health Maintenance Results * XR Chest 2 Views (01/15/2025 11:48 AM EST) Anatomical Region Laterality Modality Body Radiographic Jaky ging 01/15/2025 5:06 PM EST Impressions 01/15/2025 5:07 PM EST No acute cardiopulmonary process. -------- FINAL REPORT -------- Dictated By: James Olivares Dictated Date: 01/15/2025 17:06 ET Assigned Physician: James Olivares Reviewed and Electronically Signed By: James Olivares Signed Date: 01/15/2025 17:07 ET Workstation ID: [id number] Transcribed By: Self Edit Transcribed Date: 01/15/2025 17:06 ET Narrative 01/15/2025 5:07 PM EST HISTORY: cough evaluate pna TECHNIQUE: PA and lateral radiographs of the chest COMPARISON: None FINDINGS: There is a normal cardiomediastinal silhouette. The lungs are clear. The osseous structures are intact. Right port is present. Procedure Note James Olivares MD - 01/15/2025 HISTORY: cough evaluate pna TECHNIQUE: PA and lateral radiographs of the chest COMPARISON: None FINDINGS: There is a normal cardiomediastinal silhouette. The lungs are clear. Theosseous structures are intact. Right port is present. IMPRESSION: No acute cardiopulmonary process. -------- FINAL REPORT -------- Dictated By: James Olivares Dictated Date: 01/15/2025 17:06 ET Assigned Physician: James Olivares Reviewed and Electronically Signed By: James Olivares Signed Date: 01/15/2025 17:07 ET Workstation ID: [id number] Transcribed By: Self Edit Transcribed Date: 01/15/2025 17:06 ET Darrius Rangel MD IMG XR PROCEDURES Final Result * COLONOSCOPY Anesthesia - MAC; [facility] ENDOSCOPY (10/02/2024 12:21 PM EDT) Anatomical Region Laterality Modality Other 10/02/2024 12:1 3 PM EDT Impressions 10/02/2024 12:23 PM EDT - Preparation of the colon was unsatisfactory. - Internal hemorrhoids. - End ileostomy. - No specimens collected. Recommendation: - Repeat colonoscopy in 3 years for surveillance. Narrative 10/02/2024 12:23 PM EDT [facility] GI Patient Name: Lance Johnston [...] bypass and anastomosis status CPT copyright 2020 [employer]. All rights reserved. The codes documented in this report are preliminary and upon talent partner review may be revised to meet current compliance requirements. Alberto Fall MD 10/02/2024 12:23:20 PM This report has been signed electronically.Alberto Fall MD Number of Addenda: 0 Note Initiated On: 10/02/2024 12:13 PM Scope In: Scope Out: Endoscopy Department at [facility] - [address] [place] [phone] Procedure Note Alberto Fall MD - 10/02/2024 [facility] GI Patient Name: Lance Johnston [...] bypass and anastomosis status CPT copyright 2020 [employer]. All rights reserved. The codes documented in this report are preliminary and upon talent partner reviewmay be revised to meet current compliance requirements. Alberto Fall MD 10/02/2024 12:23:20 PM This report has been signed electronically.Alberto Fall MD Number of Addenda: 0 Note Initiated On: 10/02/2024 12:13 PM Scope In: Scope Out: Endoscopy Department at [facility] - [address] [place] [phone] IMPRESSION: - Preparation of the colon was unsatisfactory. - Internal hemorrhoids. - End ileostomy. - No specimens collected. Recommendation: - Repeat colonoscopy in 3 years for surveillance. Alberto Fall MD GI~PROCEDURE ORDERABLES Final Re sult * (ABNORMAL) Lipid panel with reflex to direct LDL (01/12/2024 9:08 AM EST) Cholesterol 196 0 - 200 mg/dL LAB CHEMISTRY METHOD 01/12/2024 12:45 PM EST [facility] Triglycerides 152(H) 0 - 150 mg/dL LAB CHEMISTRY METHOD 01/12/2024 12:45 PM [facility] HDL 45 >=40 mg/dL LAB CHEMISTRY METHOD 01/12/2024 12:45 PM [facility] LDL Calculated 121(H) 0 - 100 mg/dL LAB CHEMISTRY METHOD 01/12/2024 12:45 PM EST [facility] VLDL Cholesterol Allen 30.4 mg/dL LAB CHEMISTRY METHOD 01/12/2024 12:45 PM EST [facility] Non HDL Chol. (LDL+VLDL) 151(H) <145 mg/dL LAB CHEMISTRY METHOD 01/12/2024 12:45 PM EST [facility] Chol/HDL Ratio 4.4 0.0 - 4.4 LAB CHEMISTRY METHOD 01/12/2024 12:45 PM [facility] Blood Venous blood specimen / Unknown Venipuncture / Unknown 01/12/2024 9:08 AM EST 01/12/2024 9:08 AM EST Jessy RAYA LAB BLOOD ORDERABLES Fi nal Result [facility] [address] [place] [address], * Depression Screening (06/02/2023) Depression Screening ABSTRACTED Historical Provider HEALTH MAINTENANCE Final Result * Hepatitis C Screening (06/05/2018) Hepatitis C Screening ABSTRACTED Historical Provider HEALTH MAINTENANCE Final Result from Last 3 Months or Most Recently Relevant to Health Maintenance Insurance MEDICARE [place]ICAID - [place] Care Teams Cheese Cooker Relationship Specialty Start Date End Date Darrius Rangel MD [address] [place] [phone] PCP - General Internal Medicine 12/29/23
--- OUTSIDE RECORDS SUMMARY | 2025-01-30 11:22 | XMS_ITS ---
Author Organization 175 [facility] Address [address] [place] [address] Phone Care Team Providers Care Inspector Aligning Name Role Phone Darrius Rangel MD Primary Care Provider [phone] Transitional Care Management Status:Identified (Enrolling) Start date:01/06/2025 Enrollment reason:Identified using hospital discharge data Case Team Name Relationship Phone Elliot Crockett LPN(Responsible Staff) Garbage Worker Continued Care and Services Coordination
--- OUTSIDE RECORDS SUMMARY | 2025-01-30 11:22 | XMS_ITS | Encounter Summary ---
Author Organization [facility] Address [address] [place] [address] Care Team Providers Care Elevator Repairer Helper Name Role Phone Darrius Rangel MD Primary Care Provider [phone] Encounter Details Date Type Department Care Team ([facility] st Contact Info) Description 01/16/2025 Results Follow-Up Adult Medicine [address] [phone] Darrius Rangel MD [address] [place] [address] Social History Tobacco Use Types Packs/Day Years [...] your loved ones. For example, child care associate or elderly care for an older adult? [...] 2:20 PM EST Office Visit Pulmonology - [address] [place] [address] Vilma Sepulveda NP [address] [place] [address] 03/10/2025 11:30 AM EST Office Visit Adult Medicine [address] [place] [phone] Darrius Rangel MD [address] [place] [address] documented as of this encounter Visit Diagnoses Not on filedocumented in this encounter Additional Health Concerns Assessment Noted Time PHQ-9 Depression Total Score: 0 06/11/19 25 7:08 PM EDT documented as of this encounter Care Teams Elevator Repairer Helper Relationship Specialty Start Date End Date Darrius Rangel MD [address] [place] [address] PCP - General Internal Medicine 12/29/23 documented as of this encounter
--- OUTSIDE RECORDS SUMMARY | 2025-01-30 11:24 | XMS_ITS | Encounter Summary ---
Author Organization [facility] Address [address] [place] [address] Care Team Providers Care Jewel Diameter Gauger Name Role Phone Darrius Rangel MD Primary Care Provider [phone] Encounter Details Date Type Department Care Team ([facility] st Contact Info) Description 01/30/2025 Billing Patient Not Present Adult Medicine [address] [phone] Darrius Rangel MD [address] [place] [address] Social History Tobacco Use Types Packs/Day Years [...] for your loved ones. For example, child psychology teacher or elderly care for an older [...] 2:20 PM EST Office Visit Pulmonology - [address] [place] [address] Vilma Sepulveda, MARGUERITE [address] [place] [address] 03/10/2025 11:30 AM EST Office Visit Adult Medicine [address] [place] [address] Darrius Rangel MD [address] [place] [address] documented as of this encounter Visit Diagnoses Not on filedocumented in this encounter Additional Health Concerns Assessment Noted Time PHQ-9 Depression Total Score: 0 06/11/19 25 7:08 PM EDT documented as of this encounter Care Teams Jewel Diameter Gauger Relationship Specialty Start Date End Date Darrius Rangel MD [address] [place] [address] PCP - General Internal Medicine 12/29/23 documented as of this encounter
== END 2025-01-30 10:23 | disposition home or self-care (01) ==
LOC: HO.HGS 09:49
PROVIDERS: PCP Internal Medicine; Visit Provider Surgery
DX: C18.9 Malignant neoplasm of colon, unspecified (principal)
CPT/HCPCS: 99213

== ENCOUNTER → 2025-01-30 09:48 | Outpatient (BNVA) | payer MEDICARE, MEDICAID, SELFPAY | PROVIDERS: PCP Internal Medicine; Visit Provider Surgery | DX: C18.9 Malignant neoplasm of colon, unspecified (principal) | CPT/HCPCS: 99212 ==